=== PATIENT | male | born 1945 | race Caucasian/White ===

== ENCOUNTER 2022-06-28 07:45 | Inpatient (IN) | payer OTHER ==
--- OUTSIDE RECORDS SUMMARY | 2022-06-28 07:48 | XMS REPORT | Continuity of Care Document ---
:1945 Author Organization [facility] t Address [address] [place] [address] [address]. [address] [place] [address] Care Team Providers Name Role Phone JEREMY PRYOR Primary Care Physician Unavailable Fredo Gonzalez Attending Clinician Unavailable MAMI GONZALES Attending Clinician Unavailable MAMI GONZALES Attending Clinician Unavailable SAMANTHA VASQUEZ Attending Clinician Unavailable Doctor Unassigned, [place] Attending Clinician Unavailable Mami Gonzales DO Attending Clinician [facility], [facility] Attending Clinician Unavailable Sandra Willis MD Attending Clinician SANDRA WILLIS Attending Clinician Unavailable SANDRA WILLIS Attending Clinician Unavailable Therapist, [facility] Attending Clinician Unavailable Yan Zheng MD Attending Clinician YAN ZHENG Attending Clinician Unavailable Only, [facility] Test Attending Clinician Unavailable MAMI GONZALES Admitting Clinician Unavailable Payers Payer Name Policy Type Policy Number Effective Date Expiration Date S bob MEDICARE PART A [id number] 2010 \T\ B 00:00:00 KARLO ANDREA PETTY [id number] 2019 00:00:00 Problems Condition Condition Condition Status Onset Resolution Last Treating Co mments Source Name Details Category Date Date Treatment Clinician Date No known No known Disease Metho di active active st problems problems Hospit a l Allergies, Adverse Reactions, Alerts Allergy Allergy Status Severity Reaction(s) Onset Inactive Treating Comm ents Source Name Type Date Date Clinician NO KNOWN Drug Active Univers ALLERGIE Class ity of S [facility] Family History Family Member Diagnosis Comments Start Date Stop Date Source Natural father Hodgkin's lymphoma [facility] Natural mother Breast cancer [facility] Social History Social Habit Start Date Stop Date Quantity Comments Source History of tobacco Current smoker Un iversity of use [facility] Exposure to 2021-12-23 2022-01-02 Not sure [facility]-CoV-2 (event) 00:00:00 09:44:00 [facility] Tobacco use and 2021-07-07 2021-07-07 Former smokeless Uni versity of exposure 00:00:00 00:00:00 tobacco user [facility] Cigarettes smoked 2017-02-22 2017-02-22 [facility] current (pack per 00:00:00 00:00:00 Hospita day) - Reported Cigarette 2017-02-22 2017-02-22 [facility]-years 00:[facility] 00:00:00 Hospital Sex Assigned At [birth year] [facility] 00:00:00 [facility]:00 Hospital Smoking Status Start Date Stop Date Source Ex-smoker 2021-07-07 00:00:00 2021-07-07 00:00:00 [facility] Medications Ordered Filled Start Stop Current Ordering Indication Dosage Frequency Signature Comments Components Source Medication Medication Date Date Medication? Clinician (SIG) Name Name fosinopriL Yes 20mg Take 20 mg U nivers 20 mg 7-26 by mouth ity of tablet 11:08: daily. [address] amLODIPine Yes 10mg Take 10 mg U nivers 10 mg 7-26 by mouth ity of tablet 11:08: daily. [address] metoprolol Yes 50mg Take 50 mg U nivers tartrate 50 7-26 by mouth ity of mg tablet 11:08: daily. [address] pravastatin Yes 80mg Take 80 mg Univers 80 mg 7-26 by mouth ity of tablet 11:08: at [place] [address] bedtime. Medical Branch fosinopriL Yes 20mg Take 20 mg U nivers 20 mg 7-26 by mouth ity of tablet 11:08: daily. [address] amLODIPine Yes 10mg Take 10 mg U nivers 10 mg 7-26 by mouth ity of tablet 11:08: daily. [place] [address] Medical Branch metoprolol 2-0 Yes 50mg Take 50 mg U nivers tartrate 50 7-26 by mouth ity of mg tablet 11:08: daily. [place] [address] Medical Branch pravastatin 2-0 Yes 80mg Take 80 mg Univers 80 mg 7-26 by mouth ity of tablet 11:08: at [place] [address] bedtime. Medical Branch fosinopriL 2022-0 Yes 20mg Take 20 mg U nivers 20 mg 7-26 by mouth ity of tablet 11:08: daily. [place] [address] Medical Branch amLODIPine 2-0 Yes 10mg Take 10 mg U nivers 10 mg 7-26 by mouth ity of tablet 11:08: daily. [place] [address] Medical Branch metoprolol 2-0 Yes 50mg Take 50 mg U nivers tartrate 50 7-26 by mouth ity of mg tablet 11:08: daily. [address] Branch pravastatin 2-0 Yes 80mg Take 80 mg Univers 80 mg 7-26 by mouth ity of tablet 11:08: at [place] [address] bedtime. Medical Branch fosinopriL 2-0 Yes 20mg Take 20 mg U nivers 20 mg 7-26 by mouth ity of tablet 11:08: daily. [place] [address] Medical Branch amLODIPine 2-0 Yes 10mg Take 10 mg U nivers 10 mg 7-26 by mouth ity of tablet 11:08: daily. [place] [address] Medical Branch metoprolol 2-0 Yes 50mg Take 50 mg U nivers tartrate 50 7-26 by mouth ity of mg tablet 11:08: daily. [place] [address] Medical Branch pravastatin 2-0 Yes 80mg Take 80 mg Univers 80 mg 7-26 by mouth ity of tablet 11:08: at [place] [address] bedtime. Medical Branch fosinopriL 2-0 Yes 20mg Take 20 mg U nivers 20 mg 7-26 by mouth ity of tablet 11:08: daily. [place] [address] Medical Branch amLODIPine 2-0 Yes 10mg Take 10 mg U nivers 10 mg 7-26 by mouth ity of tablet 11:08: daily. [place] [address] Medical Branch metoprolol 2-0 Yes 50mg Take 50 mg U nivers tartrate 50 7-26 by mouth ity of mg tablet 11:08: daily. [place] 53 Medical Branch pravastatin 2-0 Yes 80mg Take 80 mg Univers 80 mg 7-26 by mouth ity of tablet 11:08: at [place] [address] bedtime. Medical Branch fosinopriL 2-0 Yes 20mg Take 20 mg U nivers 20 mg 7-26 by mouth ity of tablet 11:08: daily. [place] [address] Medical Branch amLODIPine 2-0 Yes 10mg Take 10 mg U nivers 10 mg 7-26 by mouth ity of tablet 11:08: daily. [place] [address] Medical Branch metoprolol 2-0 Yes 50mg Take 50 mg U nivers tartrate 50 7-26 by mouth ity of mg tablet 11:08: daily. [place] [address] Medical Branch pravastatin 2-0 Yes 80mg Take 80 mg Univers 80 mg 7-26 by mouth ity of tablet 11:08: at [place] [address] bedtime. Medical Branch umeclidiniu 2021-0 Yes 1{puff} Inhale 1 Univers m-vilantero 4-29 Puff ity of L ([facility] 62[facility]25 Branch mcg/actuati on inhalation disk umeclidiniu 2021-0 Yes 1{puff} Inhale 1 Univers m-vilantero 4-29 Puff ity of L (ANORO 00:00: daily. [place] ELLIPTA) 00 Medical 62.5-25 Branch mcg/actuati on inhalation disk umeclidiniu 2-0 Yes 1{puff} Inhale 1 Univers m-vilantero 4-29 Puff ity of L (ANORO 00:00: daily. [place] ELLIPTA) 00 Medical 62.5-25 Branch mcg/actuati on inhalation disk umeclidiniu 2-0 Yes 1{puff} Inhale 1 Univers m-vilantero 4-29 Puff ity of L (ANORO 00:00: daily. [place] ELLIPTA) 00 Medical 62.5-25 Branch mcg/actuati on inhalation disk umeclidiniu 2-0 Yes 1{puff} Inhale 1 Univers m-vilantero 4-29 Puff ity of L (ANORO 00:00: daily. [place] ELLIPTA) 00 Medical 62.5-25 Branch mcg/actuati on inhalation disk umeclidiniu Yes 1{puff} Inhale 1 Univers m-vilantero 4-29 Puff ity of L (ANORO 00:00: daily. [place] ELLIP) 00 Medical 62.5-25 Branch mcg/actuati on inhalation disk ALBUTEROL Yes INHALE 2 Univ ers 90 2-14 PUFFS BY ity of mcg/actuati 00:00: MOUTH [place] on inhaler 00 EVERY 6 Medica l HOURS Branch NEEDED FOR WHEEZING OR SHORTNESS OF BREATH ALBUTEROL Yes INHALE 2 Univ ers 90 2-14 PUFFS BY ity of mcg/actuati 00:00: MOUTH [place] on inhaler 00 EVERY 6 Medica l HOURS Branch NEEDED FOR WHEEZING OR SHORTNESS OF BREATH ALBUTEROL Yes INHALE 2 Univ ers 90 2-14 PUFFS BY ity of mcg/actuati 00:00: MOUTH [place] on inhaler 00 EVERY 6 Medica l HOURS Branch NEEDED FOR WHEEZING OR SHORTNESS OF BREATH ALBUTEROL Yes INHALE 2 Univ ers 90 2-14 PUFFS BY ity of mcg/actuati 00:00: MOUTH [place] on inhaler 00 EVERY 6 Medica l HOURS Branch NEEDED FOR WHEEZING OR SHORTNESS OF BREATH ALBUTEROL Yes INHALE 2 Univ ers 90 2-14 PUFFS BY ity of mcg/actuati 00:00: MOUTH [place] on inhaler 00 EVERY 6 Medica l HOURS Branch NEEDED FOR WHEEZING OR SHORTNESS OF BREATH ALBUTEROL Yes INHALE 2 Univ ers 90 2-14 PUFFS BY ity of mcg/actuati 00:00: MOUTH [place] on inhaler 00 EVERY 6 Medica l HOURS Branch NEEDED FOR WHEEZING OR SHORTNESS OF BREATH amLODIPine Yes 10mg QD Take 10 mg M ethodi (NORVASC) 9-[address] 10 mg 15:23: daily. Hospita tablet 24 l metoprolol Yes 50mg QD Take 50 mg M ethodi succinate 9-[address] XL 15:23: daily. Hospita (TOPROL-XL) 24 l 50 mg 24 hr tablet fosinopril Yes TK 1 T PO Me thodi (MONOPRIL) 8-[address] 20 MG 00:00: Hospita tablet 00 l latanoprost Yes INT 1 GTT M ethodi (XALATAN) 8-[address] 0.005 % 00:00: Hospita ophthalmic 00 l solution pravastatin Yes TK 1 T PO M ethodi (PRAVACHOL) 8-[address] 80 MG 00:00: Hospita tablet 00 l PROAIR HFA Yes INL 2 PFS Me thodi 90 6-[address] mcg/actuati 00:00: Hospit a on inhaler 00 l Immunizations Ordered Filled Immunization Date Status Comments [facility] e Immunization Name Name Influenza Virus 2021-08-26 Completed Universit y of Vaccine,quad 00:00:00 [place] [facility] Im,preserve Free Branch 65+ Influenza Virus 2021-08-26 Completed Universit y of Vaccine,quad 00:00:00 [place] Med[facility] Im,preserve Free Branch 65+ Influenza Virus 2021-08-26 Completed Universit y of Vaccine,quad 00:00:00 [place] Medica l Im,preserve Free Branch 65+ Influenza Virus 2021-08-26 Completed Universit y of Vaccine,quad 00:00:00 [place] Medica l Im,preserve Free Branch 65+ Influenza Virus 2021-08-26 Completed Universit y of Vaccine,quad 00:00:00 [place] Medica l Im,preserve Free Branch 65+ Influenza Virus 2021-08-26 Completed Universit y of Vaccine,quad 00:00:00 [place] Medica l Im,preserve Free Branch 65+ Vital Signs Vital Name Observation Time Observation Value Comments Source Systolic blood 2022-01-03 16:18:00 114 mm[facility]Hg] [facility] Diastolic blood 2022-01-03 16:18:00 71 mm[Hg] [facility] Heart rate 2022-01-03 16:18:00 85 /min [facility] Respiratory rate 2022-01-03 16:18:00 19 /min [facility] Body height 2022-01-03 16:18:00 180.3 cm [facility] Body weight 2022-01-03 16:18:00 129.729 kg [facility] BMI 2022-01-03 16:18:00 39.89 kg/m2 [facility] Oxygen saturation in 2022-01-03 16:18:00 95 /min University Arterial blood by [facility] Pulse oximetry Branch Procedures Procedure Date / Time Performing Clinician Source Performed DME/SUPPLY JUSTIFICATION 2022-03-23 05:01:00 Doctor Unassigned, No [facility] DME/SUPPLY JUSTIFICATION 2022-01-03 05:01:00 Doctor Unassigned, No [facility] DME/SUPPLY JUSTIFICATION 2021-12-21 05:01:00 Doctor Unassigned, No [facility] Plan of Care Planned Activity Planned Date Details Comments Source Future Scheduled 2022-05-27 COVID-19 VACCINE (#1) [facility] Test 05:45:53 [code = COVID-19 VACCINE (#1)] Future Scheduled 2022-05-27 SHINGLES VACCINES (1 [facility] Test 05:45:53 of 2) [code = SHINGLES VACCINES (1 of 2)] Future Scheduled 2022-05-27 65+ [facility] 05:45:53 VACCINE (1 - PCV) [code = 65+ PNEUMOCOCCAL VACCINE (1 - PCV)] Future Scheduled 2022-05-27 INFLUENZA VACCINE [facility] Test 05:45:53 [code = INFLUENZA VACCINE] Encounters Start End Encounter Admission Attending Care Care Encounter Source Date/Time Date/Time Type Type Clinicians Facility Department ID 2022-05-30 Outpatient Gonzalez, [facility] [id number] Common 07:43:01 [facility] 2022-05-02 [facility] [id number] Common 08:50:02 [facility] 2022-01-30 Outpatient Gonzalez, [facility] [id number] Common 14:59:02 [facility] 2021-12-27 [facility] [id number] Common 08:16:03 [facility] 2021-12-26 Outpatient [facility] [id number] Common 15:16:04 [facility] 2022-05-15 2022-05-15 Outpatient R CHRISTINA [facility] [id number] Univers 16:00:00 16:00:00 SAMANTHA ity of [facility] 2022-03-23 2022-03-23 Orders Doctor ABELINO [id number] [id number] Univers 00:00:00 00:00:00 Only Unassigned, MARY [id number] ity of [place] [facility] [id number] Joe as [id number] [address] 2022-01-24 2022-01-24 [facility] [id number] Univers 00:00:00 00:00:00 Shiwan GISSELL [id number] i ty [id number] [id number] [address] 2022-01-03 2022-01-03 Outpatient R MAMI GONZALES [facility] [id number] Univers 11:00:00 11:47:28 MAMI GONZALES i ty of [facility] 2022-01-03 2022-01-03 [facility] [id number] Univers 11:00:00 11:47:28 Visit Mami BORRERO [id number] i ty [id number] [id number] [address] 2022-01-03 2022-01-03 [facility] [id number] Univers 00:00:00 00:00:00 Shisim BORRERO [id number] i ty [id number] [id number] [address] 2022-01-03 2022-01-03 Orders Doctor ABELINO 1.2.840.114 [id number] Univers 00:00:00 00:00:00 Only Unassigned, MARY [id number] ity of [place] [facility] [id number] Joe as [id number] [address] 2021-12-21 2021-12-21 Telephone [facility] [id number] Univers 00:00:00 00:00:00 Shiwan [place] [id number] i ty [id number] [id number] [address] 2021-12-21 2021-12-21 Orders Doctor ABELINO 1.2.840.114 [id number] Univers 00:00:00 00:00:00 Only Unassigned, MARY [id number] ity of [place] [facility] [id number] Joe as [id number] [address] 2021-12-19 2021-12-19 Telephone [facility] [id number] Univers 00:00:00 00:00:00 Shiwan [place] [id number] i ty [id number] [id number] [address] 2021-12-07 2021-12-07 Telephone [facility] [id number] Univers 00:00:00 00:00:00 Shiwan [place] [id number] i ty [id number] [id number] [address] 2021-09-19 2021-09-19 [facility] 1.2.840.114 [id number] Univers 00:00:00 00:00:00 Shiwan [place] [id number] i ty [id number] [id number] [address] 2021-09-14 2021-09-14 Outpatient R MAMI GONZALES [facility] 10 [id number] Univers 13:59:27 23:59:00 MAMI GONZALES i ty of [facility] 2021-09-14 2021-09-14 [facility] 1.2.840.114 [id number] Univers 13:59:27 23:59:00 Encounter Mami BORRERO [id number] ity [place] [id number] [address] 2021-08-26 2021-08-26 Outpatient R MAMI GONZALES [facility] 10 [id number] Univers 14:00:00 14:59:18 MAMI GONZALES i ty of [facility] 2021-08-26 2021-08-26 [facility] 1.2.840.114 [id number] Univers 14:00:00 14:59:18 Visit Mami BORRERO 350.1.13.10 i ty [place] [facility] [id number] [address] 2021-08-26 2021-08-26 Outpatient R MAMI GONZALES [facility] 10 [id number] Univers 14:00:00 14:00:00 MAMI GONZALES i ty of [facility] 2021-08-26 2021-08-26 Outpatient R MAMI GONZALES [facility] 10 [id number] Univers 14:00:00 14:00:00 MAMI GONZALES i ty of [facility] 2021-08-05 2021-08-05 [facility] 1.2.840.114 [id number] Univers 00:00:00 00:00:00 Mami BORRERO 350.1.13.10 i ty [place] [id number] [address] 2021-08-04 2021-08-04 [facility] 1.2.840.114 [id number] Univers 00:00:00 00:00:00 Mami BORRERO [id number] i ty [id number] [id number] [address] 2021-07-27 2021-07-27 Telephone PAOLA Gonzales 1.2.840.114 [id number] Univers 00:00:00 00:00:00 [facility] [id number] i ty of [place] [id number] [place] [address] [place] 2021-07-25 2021-07-25 Refill El[place] [facility] 1.2.840.114 [id number] Univers 00:00:00 00:00:00 Shiwan [place] [id number] i ty [facility] 4.2.7.2.[place] [id number] Pa dical NAL [address] [place] [address] 2021-07-19 2021-07-19 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 10 ity of [facility] 4.2.7.2.[place] [id number] [facility] [address] [place] 2021-07-19 2021-07-19 Outpatient R SANDRA WILLIS [facility] [id number] Univers 10:00:00 10:00:00 SANDRA WILLIS [facility] 2021-07-18 2021-07-18 [facility] [id number] Univers 00:00:00 00:00:00 Mami BORRERO 350.1.13.10 i ty [place] [id number] [address] dic[address] 2021-07-12 2021-07-12 Tape Fastener Machine Operator Therapist, [facility]c Respiratory [facility] 1.2.840.114 [id number] Univers 14:00:00 15:30:00 Visit Yan Zheng 350.1.13. 10 ity of [facility] 4.2.7.2.[place] [id number] [place] [address] [place] 2021-07-12 2021-07-12 Outpatient R MARCE [facility] [id number] Univers 14:00:00 14:00:00 YAN goodman [facility] 2021-07-12 2021-07-12 Orders Doctor ABELINO 1.2.840.114 [id number] Univers 00:00:00 00:00:00 Only Unassigned, MARY 350.1.13.10 ity of [place] [facility] 4.2.7.2.686 Joe as [id number] [facility] 009 Branch 2021-07-07 2021-07-07 Hospital [facility] 1.2.840.114 [id number] Univers 10:20:07 23:59:00 Encounter Mami BORRERO 350.1.13.10 [place] [id number] [facility] 807 Branch 2021-07-07 2021-07-07 Laboratory Only, Adc Test [facility] 1.2.840. 114 [id number] Univers 10:15:00 10:30:00 Only Mami Gonzales 350.1.13.10 [place] [phone] [facility] 353 Branch 2021-07-07 2021-07-07 Outpatient R MAMI GONZALES [facility] [id number] Univers 10:15:00 10:15:00 MAMI GONZALES i ty of [facility] 2021-07-07 2021-07-07 Office Elida [facility] 1.2.840.114 [id number] Univers 08:30:00 09:30:08 Visit Mami BORRERO 350.1.13.10 i ty [place] [id number] Pa dical [facility] 085 Branch [facility] 2021-07-07 2021-07-07 Outpatient R MAMI GONZALES [facility] [id number] Univers 08:30:00 09:30:08 MAMI GONZALES i ty of [facility] 2021-07-07 2021-07-07 Orders Doctor ROCA 1.2.840.114 [id number] Univers 00:00:00 00:00:00 Only Unassigned, MARY 350.1.13.10 ity of [place] [facility] 4.2.7.2.686 Joe as [phone] [facility] 009 Branch Results This patient has no known results.
[2022-06-28 08:23] LABS: Absolute Lymphocytes (CBC) 0.6 K/uL (0.7-4.9); Hematocrit 33.8 % (39.6-49.0); Lymphocytes % 2.2 % (15.3-44.8); MCV 73.6 fL (80-100); MPV 8.1 fL (7.6-11.3)
[2022-06-28 08:37] LABS: Potassium 4.3 mmol/L (3.5-5.1)
[2022-06-28 08:39] LABS: Troponin High Sensitivity 56.9 pg/mL (<58.9)
[2022-06-28] MEDS ORDERED: CEFTRIAXONE 1000 MG/VIAL ONE (08:40)
[2022-06-28] MEDS ORDERED: NA CHLORIDE 0.9% 50 ML IV ONE (08:40)
--- NOTE | 2022-06-28 09:22 | RAD REPORT ---
EXAM DESCRIPTION: CT - Thorax Wo Con CLINICAL HISTORY: Chest pain Atrial fibrillation and shortness of breath COMPARISON: Chest Single View dated 06/28/2022 FINDINGS: Lobulated soft tissue mass is seen measuring 4.3 x 3.1 cm in the left lung base anteriorly . This abuts both the pleura and pericardium. Additional 2 small nodules are present in the left base medially measuring 10 mm in the left posterior gutter and 13 mm in the medial left base abutting the posterior mediastinal pleural surface. Findings are quite suspicious for lung malignancy. Position o f this mass adjacent to rib in very close to the heart would make percutaneous biopsy technically deric llenging. Diffuse COPD is present. Tiny nodule is seen in the anterior right upper lobe measuring 5 mm. Thyroid gland is mildly prominent. Mildly prominent lymph nodes in the mediastinum noted. Several vag ue low-density lesions are present in the liver. No destructive bone lesion. All CT scans are performed using dose optimization technique as appropriate and may include automated exposure control or mA/KV adjustment according to patient size. IMPRESSION: Lobulated large pulmonary mass in the left base anteriorly highly suspicious for maligna ncy. Smaller satellite nodules are present in the left base as detailed. Nonspecific low-density lesions in the liver could represent cysts, although early metastatic lesions cannot be ruled out on noncontrast study. Recommend follow-up nonemergent MRI liver protocol with co ntrast.
--- NOTE | 2022-06-28 09:32 | RAD REPORT ---
EXAM DESCRIPTION: RAD - Chest Single View - 06/28/2022 8:51 am CLINICAL HISTORY: falll from standing Chest pain. COMPARISON: Abdomen 1 View (KUB) dated 05/08/2016; ABDOMEN 1 VIEW KUB dated 03/29/2015; ABDOMEN 1 EW KUB dated 03/11/2014; CHEST PA AND LAT 2 VIEW dated 01/07/2014 FINDINGS: Portable technique limits examination quality. 3-4 cm pleural based mass is seen in the left lower lobe laterally. The lungs are clear acute infiltr ate but are mildly emphysematous. Heart is mildly prominent. CT follow-up recommended.
[2022-06-28 09:52] LABS: Anisocytosis 1+; Blood Morphology Comment NOTED (NOT SEEN); Hypochromasia 1+; Platelet Estimate INCR; Platelets, Giant PRESENT; Poikilocytosis SLIGHT; Target Cells FEW; Teardrop Cell FEW
--- NOTE | 2022-06-28 09:59 | ER ---
Nurse's Notes [facility] Name: Ren Owusu Age: 77 yrs Sex: Male : 1945 Arrival Date: 06/28/2022 Time: 07:50 Bed 8 Private MD: Diagnosis: Unspecified atrial fibrillation;Weakness;COPD/ Chronic obstructive pulmonary disease with (acute) exacerbation;Fall on same level, unspecified-from standing Presentation: 06/28 07:51 Chief complaint: EMS states: Became disoriented and fell in his closet, denies LOC or ph injury r/t fall, was there for approx an hour and a half, when EMS arrived he was weak, pale and diaphoretic, found to be in a-fib/RVR w/ rate 140s-180s, initial BP 112 systolic, has hx of a-fib, 18G IV to LAC, 25 mg Cardizem given, BP dropped to 80s systolic, improved after 600 mL NS bolus, pt awake and alert upon arrival to ED, hx of COPD, was 89% RA, placed on 2L NC. Coronavirus screen: Vaccine status: Patient reports receiving the 2nd dose of the covid vaccine. Ebola Screen: No symptoms or risks identified at this time. Initial Sepsis Screen: Does the patient meet any 2 criteria? No. Patient's initial sepsis screen is negative. Does the patient have a suspected source of infection? No. Patient's initial sepsis screen is negative. Risk Assessment: Do you want to hurt yourself or someone else? Patient reports no desire to harm self or others. 07:51 Method Of Arrival: EMS: [facility] 07:51 Acuity: MICHAEL 2 ph 07:56 Onset of symptoms was June 28, 2022. Triage Assessment: 07:57 General: Appears in no apparent distress. Behavior is calm, cooperative. Pain: Complains of pain in back. Neuro: Level of Consciousness is awake, alert, obeys commands, Oriented to person, place, time, situation. Cardiovascular: Reports diaphoresis, fatigue, lightheadedness, Denies chest pain, palpitations, shortness of breath, Rhythm is atrial fibrillation with rapid ventricular response. Respiratory: Airway is patent Respiratory effort is even, unlabored. GI: No signs and/or symptoms were reported involving the gastrointestinal system. Derm: Skin is pink, warm \T\ dry. Musculoskeletal: Circulation, motion, and sensation intact. Range of motion: intact in all extremities. Historical: - Allergies: 07:56 No Known Allergies; ph - Home Meds: 08:59 metformin 500 mg Oral tr24 1 tab once daily [Active]; albuterol sulfate 90 iw mcg/actuation Inhl aepb 1 puff every 6 hours [Active]; Eliquis 5 mg oral tab 1 tab 2 times per day [Active]; hydrocodone-acetaminophen 5-500 mg Oral cap 1 cap every 4 hours [Active]; gabapentin 300 mg oral Tb24 1 tab once daily [Active]; amlodipine 10 mg tab 1 tab once daily [Active]; metoprolol tartrate 50 mg Oral tab 1 tab 2 times per day [Active]; finasteride 5 mg oral tab 1 tab once daily [Active]; pravastatin 80 mg oral tab 1 tab once daily [Active]; Anoro Ellipta 62.5-25 mcg/actuation inhalation dsdv 1 puff once daily [Active]; - PMHx: 07:56 Hypertensive disorder; Hypercholesterolemia; Atrial fibrillation; ph - Immunization history:: Adult Immunizations unknown. - Social history:: Smoking status: Patient denies any tobacco usage or history of. Screenin:57 [facility] ED Fall Risk Assessment (Adult) History of falling in the last 3 months, ph including since admission Yes- physiologic fall (2 pts) Confusion or Disorientation No (0 pts) Intoxicated or Sedated No (0 pts) Impaired Gait Yes (1 pt) Mobility Assist Device Used No (0 pt) Altered Elimination No (0 pt) Score/Fall Risk Level 3 or more points = High Risk Oriented to surroundings, Maintained a safe environment, Hourly rounding (assess needs \T\ fall precautionary measures) done, Offered frequent toileting (1:1 observation), Remained with patient while ambulating. Abuse screen: Denies threats or abuse. Denies injuries from another. Nutritional screening: No deficits noted. Tuberculosis screening: No symptoms or risk factors identified. Assessment: 07:59 General: SEE TRIAGE ASSESSMENT. ph 08:51 Reassessment: Patient appears in no apparent distress at this time. Patient and/or ph family updated on plan of care and expected duration. Pain level reassessed. Patient is alert, oriented x 3, equal unlabored respirations, skin warm/dry/pink. Pt taken to CT via stretcher. 10:33 Reassessment: Patient appears in no apparent distress at this time. Patient and/or ph family updated on plan of care and expected duration. Pain level reassessed. Patient is alert, oriented x 3, equal unlabored respirations, skin warm/dry/pink. 11:02 Reassessment: Patient appears in no apparent distress at this time. Patient and/or ph family updated on plan of care and expected duration. Pain level reassessed. Patient is alert, oriented x 3, equal unlabored respirations, skin warm/dry/pink. Hospitalist at bedside. 13:53 Reassessment: Tech at bedside for echocardiogram at bedside. ph 14:12 Reassessment: Order placed for amiodarone drip, pt unable to go to med-surg until after ph medication is titrated per protocol, charge nurse notified. 14:14 Reassessment: Pt taken for VQ scan. ph 19:31 General: Appears in no apparent distress. comfortable, well groomed, well developed, kl Behavior is calm, cooperative. Pain: Denies pain. Neuro: No deficits noted. Respiratory: No deficits noted. GI: No deficits noted. No signs and/or symptoms were reported involving the gastrointestinal system. : No deficits noted. No signs and/or symptoms were reported regarding the genitourinary system. EENT: No deficits noted. No signs and/or symptoms were reported regarding the EENT system. Derm: No deficits noted. No signs and/or symptoms reported regarding the dermatologic system. 19:32 Reassessment: Patient and/or family updated on plan of care and expected duration. Pain kl level reassessed. 20:41 Cardiovascular: Rhythm is atrial fibrillation. Vital Signs: 07:51 BP 93 / 61; Pulse 133; Resp 25; Temp 98.3; Pulse Ox 96% on 2 lpm NC; Weight 124.74 kg; ph Height 5 ft. 10 in. (177.80 cm); 08:32 BP 90 / 64; Pulse 110; Resp 22; Pulse Ox 96% on 2 lpm NC; ph 08:47 BP 93 / 51; Pulse 122; Resp 19; Pulse Ox 98% ; jl7 09:22 BP 99 / 57; Pulse 99; Resp 20; Pulse Ox 97% on 2 lpm NC; ph 10:22 BP 92 / 66; Pulse 108; Resp 15; Pulse Ox 97% ; jl7 11:02 BP 102 / 63; Pulse 102; Resp 22; Pulse Ox 96% on 2 lpm NC; ph 12:00 BP 95 / 56; Pulse 93; Resp 20; Temp 97.9; Pulse Ox 97% on 2 lpm NC; ph 13:26 BP 92 / 62; Pulse 85; Resp 18; Pulse Ox 97% on 2 lpm NC; ph 20:49 BP 126 / 77; Pulse 105; Resp 20; Pulse Ox 97% on R/A; kl 07:51 Body Mass Index 39.46 (124.74 kg, 177.80 cm) ph ED Course: 07:50 Patient arrived in ED. iw 07:51 Joann Tenorio, RN is Primary Nurse. ph 07:56 Triage completed. ph 07:58 Arm band placed on Patient placed in an exam room, on a stretcher, on oxygen, on ph hospital monitor, on pulse oximetry. EKG completed in triage. Results shown to MD. 07:59 Patient has correct armband on for positive identification. Placed in gown. Bed in low ph position. Call light in reach. Side rails up X2. Client placed on continuous cardiac and pulse oximetry monitoring. NIBP monitoring applied. Door closed. Noise minimized. Warm blanket given. 07:59 Maintain EMS IV. Dressing intact. Good blood return noted. Site clean \T\ dry. Gauge \T\ ph site: 18G RAC. 08:01 Bebeto Nolasco MD is Attending Physician. kdr 08:01 EKG done, by ED staff, reviewed by Bebeto Nolasco MD. jl7 08:31 Notified ED physician of a critical lab result(s). d-dimer 1,377 and WBC 26.8. ph 08:52 XRAY Chest (1 view) In Process Unspecified. EDMS 08:58 Thorax Wo Con In Process Unspecified. EDMS 09:58 Brayden Erickson MD is Hospitalizing Provider. kdr 10:22 COVID swab sent to lab. jl7 10:25 Chris Miller MD is Hospitalizing Provider. kdr 11:02 No provider procedures requiring assistance completed. Patient admitted, IV remains in ph place. Administered Medications: 08:11 Drug: NS 0.9% 250 ml Route: IV; Rate: bolus; Site: right antecubital; ph 09:00 Follow up: Response: No adverse reaction; IV Status: Completed infusion; IV Intake: jl7 250ml 08:50 Drug: Rocephin - (cefTRIAXone) 1 grams Route: IVPB; Infused Over: 30 mins; Site: right antecubital; 09:20 Follow up: Response: No adverse reaction; IV Status: Completed infusion; IV Intake: [id number] 13:51 Drug: amiodarone 150 mg Volume: 100 ml; Route: IVPB; Infused Over: 10 mins; Site: right antecubital; 14:01 Follow up: Response: No adverse reaction; IV Status: Completed infusion; IV Intake: ph 100ml 15:05 Drug: amiodarone 900 mg, D5W 500 ml Route: IVPB; Rate: 1 mg/min; Site: right antecubital; 16:55 Follow up: IV Status: Infusion continued upon admission ss Medication: 07:59 VIS not applicable for this client. ph Intake: 09:00 IV: 250ml; Total: 250ml. jl7 09:20 IV: 50ml; Total: 300ml. jl7 14:01 IV: 100ml; Total: 400ml. ph Outcome: 09:59 Decision to Hospitalize by Provider. kdr 16:00 Admitted to ER Hold. Please see [facility] for further documentation. ss 16:00 Condition: stable 16:00 Instructed on the need for admit, Demonstrated understanding of instructions. 22:36 Admitted to Med/surg accompanied by tech, room 409, with chart, Report called to christy sullivan 22:36 Condition: improved 22:37 Patient left the ED. nate Signatures: Dispatcher [employer] EDNH Samantha Rogers RN RN kl Rittger, Kevin, MD MD kdr Williams, Irene, RN RN Jazmin Ron RN RN Joann Tenorio RN RN Elif Mueller RN RN jl7 Corrections: (The following items were deleted from the chart) 20:41 19:31 Cardiovascular: Capillary refill < 3 seconds Rhythm is sinus rhythm nate sullivan
--- NOTE | 2022-06-28 09:59 | EDPHYS ---
Physician Documentation [facility] Name: Ren Owusu Age: 77 yrs Sex: Male : 1945 Arrival Date: 06/28/2022 Time: 07:50 Bed 8 Private MD: ED Physician Bebeto Nolasco HPI: 06/28 08:09 This 77 yrs old Male presents to ER via EMS with complaints of A Fib - fall. kdr 08:09 Patient states that he was up earlier this morning and in his closet when he fell to kdr the ground and was unable to get up for some time. His was home but she was not aware initially that he had fallen. He had to call her into the closet. She was unable to get him off the floor so EMS was called. Patient denies any new injuries. He has a history of chronic back pain and he states that this is no different or worse at this time. He denies chest pain or shortness of breath. He is otherwise alert and oriented and nontoxic appearing. His vital signs are unstable and that he has a heart rate in the 120s to 130s. His blood pressure initially started at in the 90s but is slowly drifted down slightly. Currently 89/53 with a MAP of 64. The patient is currently alert and oriented and asymptomatic with regard to his blood pressure and pulse. Onset: The symptoms/episode began/occurred suddenly, just prior to arrival. Severity of symptoms: At their worst the symptoms were moderate in the emergency department the symptoms are unchanged. The patient has not experienced similar symptoms in the past. The patient has not recently seen a physician. Patient states he has a history of A. fib. EMS after their initial assessment, administered 25 mg of Cardizem. It is unknown what the before and after vital signs were at this time.. Historical: - Allergies: 07:56 No Known Allergies; ph - Home Meds: 08:59 metformin 500 mg Oral tr24 1 tab once daily [Active]; albuterol sulfate 90 iw mcg/actuation Inhl aepb 1 puff every 6 hours [Active]; Eliquis 5 mg oral tab 1 tab 2 times per day [Active]; hydrocodone-acetaminophen 5-500 mg Oral cap 1 cap every 4 hours [Active]; gabapentin 300 mg oral Tb24 1 tab once daily [Active]; amlodipine 10 mg tab 1 tab once daily [Active]; metoprolol tartrate 50 mg Oral tab 1 tab 2 times per day [Active]; finasteride 5 mg oral tab 1 tab once daily [Active]; pravastatin 80 mg oral tab 1 tab once daily [Active]; Anoro Ellipta 62.5-25 mcg/actuation inhalation dsdv 1 puff once daily [Active]; - PMHx: 07:56 Hypertensive disorder; Hypercholesterolemia; Atrial fibrillation; ph - Immunization history:: Adult Immunizations unknown. - Social history:: Smoking status: Patient denies any tobacco usage or history of. ROS: 08:09 Constitutional: Negative for fever, chills, and weight loss, Eyes: Negative for injury, kdr pain, redness, and discharge, ENT: Negative for injury, pain, and discharge, Neck: Negative for injury, pain, and swelling, Cardiovascular: Negative for chest pain, palpitations, and edema, Respiratory: Negative for shortness of breath, cough, wheezing, and pleuritic chest pain, Abdomen/GI: Negative for abdominal pain, nausea, vomiting, diarrhea, and constipation, : Negative for injury, bleeding, discharge, and swelling, MS/Extremity: Negative for injury and deformity, Skin: Negative for injury, rash, and discoloration, Neuro: Negative for headache, weakness, numbness, tingling, and seizure activity. Psych: Negative for depression, anxiety, suicide ideation, homicidal ideation, and hallucinations, Allergy/Immunology: Negative for hives, rash, and allergies, Endocrine: Negative for neck swelling, polydipsia, polyuria, polyphagia, and marked weight changes, Hematologic/Lymphatic: Negative for swollen nodes, abnormal bleeding, and unusual bruising. 08:09 Back: Positive for pain at rest, flank pain, Patient states he has chronic pain and that there is no change in that pain today since his fall. Exam: 08:09 Constitutional: This is a well developed, well nourished patient who is awake, alert, kdr and in no acute distress. Head/Face: Normocephalic, atraumatic. Eyes: Pupils equal round and reactive to light, extra-ocular motions intact. Lids and lashes normal. Conjunctiva and sclera are non-icteric and not injected. Cornea within normal limits. Periorbital areas with no swelling, redness, or edema. Neck: Trachea midline, no thyromegaly or masses palpated, and no cervical lymphadenopathy. Supple, full range of motion without nuchal rigidity, or vertebral point tenderness. No Meningismus. Chest/axilla: Normal chest wall appearance and motion. Nontender with no deformity. No lesions are appreciated. Respiratory: Lungs have equal breath sounds bilaterally, clear to auscultation and percussion. No rales, rhonchi or wheezes noted. No increased work of breathing, no retractions or nasal flaring. Abdomen/GI: Soft, non-tender, with normal bowel sounds. No distension or tympany. No guarding or rebound. No evidence of tenderness throughout. Back: No spinal tenderness. No costovertebral tenderness. Full range of motion. Skin: Warm, dry with normal turgor. Normal color with no rashes, no lesions, and no evidence of cellulitis. MS/ Extremity: Pulses equal, no cyanosis. Neurovascular intact. Full, normal range of motion. Neuro: Awake and alert, GCS 15, oriented to person, place, time, and situation. Cranial nerves II-XII grossly intact. Motor strength 5/5 in all extremities. Sensory grossly intact. Cerebellar exam normal. Normal gait. Psych: Awake, alert, with orientation to person, place and time. Behavior, mood, and affect are within normal limits. 08:09 Cardiovascular: Rate: tachycardic, Rhythm: irregularly irregular, Pulses: no pulse deficits are appreciated, Heart sounds: normal, Edema: is not appreciated. 08:09 ECG was reviewed by the Attending Physician. Vital Signs: 07:51 BP 93 / 61; Pulse 133; Resp 25; Temp 98.3; Pulse Ox 96% on 2 lpm NC; Weight 124.74 kg; ph Height 5 ft. 10 in. (177.80 cm); 08:32 BP 90 / 64; Pulse 110; Resp 22; Pulse Ox 96% on 2 lpm NC; ph 08:47 BP 93 / 51; Pulse 122; Resp 19; Pulse Ox 98% ; jl7 09:22 BP 99 / 57; Pulse 99; Resp 20; Pulse Ox 97% on 2 lpm NC; ph 10:22 BP 92 / 66; Pulse 108; Resp 15; Pulse Ox 97% ; jl7 11:02 BP 102 / 63; Pulse 102; Resp 22; Pulse Ox 96% on 2 lpm NC; ph 12:00 BP 95 / 56; Pulse 93; Resp 20; Temp 97.9; Pulse Ox 97% on 2 lpm NC; ph 13:26 BP 92 / 62; Pulse 85; Resp 18; Pulse Ox 97% on 2 lpm NC; ph 20:49 BP 126 / 77; Pulse 105; Resp 20; Pulse Ox 97% on R/A; kl 07:51 Body Mass Index 39.46 (124.74 kg, 177.80 cm) ph MDM: 09:59 Patient medically screened. kdr 09:59 Data reviewed: vital signs, nurses notes, lab test result(s), EKG, radiologic studies. kdr Consideration of Admission/Observation Patient was admitted/placed on observation. Management of patient was discussed with the following: Hospitalist: [place]. I considered the following discharge prescriptions or medication management in the emergency department Medications were administered in the Emergency Department. See MAR. External Records Reviewed: Inpatient record: From prior visits. 06/28 08:01 Order name: Basic Metabolic Panel; Complete Time: 09:52 [facility] 06/28 08:01 Order name: CBC with Diff; Complete Time: 18:36 kdr 06/28 08:01 Order name: D-Dimer; Complete Time: 09:52 [facility] 06/28 08:01 Order name: NT PRO-BNP; Complete Time: 09:52 [facility] 06/28 08:01 Order name: Troponin HS; Complete Time: 09:52 [facility] 06/28 08:32 Order name: Manual Differential; Complete Time: 18:36 EDMS 06/28 10:02 Order name: Blood Culture Adult (2) 06/28 10:02 Order name: Lactate w/ 2H reflex if indic.; Complete Time: 18:36 iw 06/28 10:16 Order name: SARS RAPID; Complete Time: 18:36 jl7 06/28 13:24 Order name: Hemoglobin A1c; Complete Time: 18:36 EDMS 06/28 13:30 Order name: Phosphorus; Complete Time: 18:36 EDMS 06/28 13:30 Order name: T4 Free; Complete Time: 18:36 EDMS 06/28 13:30 Order name: Magnesium; Complete Time: 18:36 EDMS 06/28 13:30 Order name: Thyroid Stimulating Hormone; Complete Time: 18:36 EDMS 06/28 08:01 Order name: XRAY Chest (1 view); Complete Time: 09:52 kdr 06/28 08:01 Order name: EKG; Complete Time: 08:02 kdr 06/28 08:49 Order name: Thorax Wo Con; Complete Time: 09:52 EDMS 06/28 11:27 Order name: Diet Heart Healthy; Complete Time: 11:27 ph 06/28 11:50 Order name: CONS Physician Consult EDMS 06/28 13:32 Order name: Lipid Profile; Complete Time: 18:36 EDMS 06/28 14:10 Order name: Creatine Phosphokinase; Complete Time: 18:36 EDMS 06/28 15:05 Order name: NM; Complete Time: 18:36 EDMS 06/28 17:35 Order name: Troponin High Sensitivity; Complete Time: 18:36 EDMS 06/28 18:12 Order name: Urine Dipstick-Ancillary; Complete Time: 18:36 EDMS 06/28 21:59 Order name: Troponin High Sensitivity EDMS 06/28 08:01 Order name: Cardiac monitoring; Complete Time: 08:02 [facility] 06/28 08:01 Order name: EKG - Nurse/Tech; Complete Time: 08:02 kdr 06/28 08:01 Order name: IV Saline Lock; Complete Time: 08:02 kdr 06/28 08:01 Order name: Labs collected and sent; Complete Time: 08:02 kdr 06/28 08:01 Order name: O2 Per Protocol; Complete Time: 08:02 [facility] 06/28 08:01 Order name: O2 Sat Monitoring; Complete Time: 08:02 kdr EC:09 Rate is 119 beats/min. Rhythm is irregularly irregular, A fib with No ectopy, Right kdr bundle branch block. Left axis deviation noted. WV interval is normal. QRS interval is normal. QT interval is normal. No Q waves. Clinical impression: Atrial Fibrillation. Administered Medications: 08:11 Drug: NS 0.9% 250 ml Route: IV; Rate: bolus; Site: right antecubital; ph 09:00 Follow up: Response: No adverse reaction; IV Status: Completed infusion; IV Intake: jl7 250ml 08:50 Drug: Rocephin - (cefTRIAXone) 1 grams Route: IVPB; Infused Over: 30 mins; Site: right ph antecubital; 09:20 Follow up: Response: No adverse reaction; IV Status: Completed infusion; IV Intake: [id number] 13:51 Drug: amiodarone 150 mg Volume: 100 ml; Route: IVPB; Infused Over: 10 mins; Site: right ph antecubital; 14:01 Follow up: Response: No adverse reaction; IV Status: Completed infusion; IV Intake: ph 100ml 15:05 Drug: amiodarone 900 mg, D5W 500 ml Route: IVPB; Rate: 1 mg/min; Site: right ph antecubital; 16:55 Follow up: IV Status: Infusion continued upon admission ss Disposition Summary: 06/28/22 09:59 Hospitalization Ordered Hospitalization Status: Inpatient Admission kdr Condition: Fair kdr Problem: an acute exacerbation kdr Symptoms: have improved kdr Bed/Room Type: Standard kdr Provider: Chris Miller(06/28/22 10:25) kdr Location: Telemetry/MedSurg (Inpatient)(06/28/22 22:17) eb1 Room Assignment: [facility](06/28/22 22:17) eb1 Diagnosis - Unspecified atrial fibrillation kdr - Weakness kdr - COPD/ Chronic obstructive pulmonary disease with (acute) exacerbation kdr - Fall on same level, unspecified - from standing kdr Forms: - Medication Reconciliation Form kdr - SBAR form kdr Signatures: Dispatcher [employer] EDMS Flori Chaudhary bd Bebeto Nolasco MD MD kdr Leona Krueger RN PEEWEE Vinny, Julio César em1 Alexys Dang, [employer] Joann Tenorio RN RN ph Aguilar, Jose RN PEEWEE [email or web address] Tabatha Moreno RN RN eb1 Jazmin Ron RN Elif Mueller RN jl7 Corrections: (The following items were deleted from the chart) 08:49 08:36 Chest For PE Angio+CT.RAD.BRZ ordered. EDMS EDMS 10:25 09:59 Brayden Erickson kdr kdr 12:59 09:59 kdr ja1 13:15 12:59 426 ja1 bd 14:49 09:59 Telemetry/MedSurg (Inpatient) kdr em1 14:49 13:15 409 bd em1 22:17 14:49 [facility] ER HOLD em1 eb1 22:17 14:49 ERHOLD- em1 eb1
[2022-06-28 10:44] LABS: SARS-CoV-2 Antigen Rapid Res Negative (Negative)
[2022-06-28] MEDS ORDERED: ACETAMINOPHEN 325 MG TABLET PO PRN (11:49)
[2022-06-28] MEDS ORDERED: HYDROMORPHONE HCL 0.5 MG/0.5 ML INJ IV PRN (11:49)
[2022-06-28] MEDS ORDERED: ONDANSETRON 4 MG/2 ML VIAL IV PRN (11:58)
--- NOTE | 2022-06-28 12:52 | P.HP ---
Certification for Inpatient Patient admitted to: Inpatient With expected LOS: >2 Midnights Patient will require the following post-hospital care: None Practitioner: I am a practitioner with admitting privileges, knowledge of patient current condition, hospital course, and medical plan of care. Services: Services provided to patient in accordance with Admission requirements found in Title 42 Section 412.3 of the Code of Federal Regulations <Lanny Ruiz Tali - Last Filed: 06/28/22 15:59> Patient History Date of Service: 06/28/22 Reason for admission: Elevated heart rate History of Present Illness: Patient is a 77-year-old male with a past medical history significant for hypertension, hyperlipidemia, atrial fibrillation, chronic back pain COPD, BPH, peripheral neuropathy who presents with complaint of elevated heart rate and fall. Patient reported that he went to use the bathroom yesterday in the night and was temporarily confused. Patient's spouse reported that patient went into the closet where he fell. Spouse reported that patient expresses temporary confusion whenever he takes his [place]. Patient denies hitting his head or losing consciousness when he fell. Spouse reported that she could not get patient up and had to call EMS. During EMS assessment, patient was found to have an elevated heart rate. Patient is a poor historian and unable to provide accurate history. Patient reported associated signs and symptoms of shortness of breath with exertion and bilateral lower extremity edema. Patient denies any other signs or symptoms. Symptoms are aggravated or relieved by nothing. Patient was brought to the hospital for medical evaluation. - Past Medical/Surgical History -: COPD -: HTN -: HLD -: AFib -: Chronic Back pain Past Surgical History: Reviewed- Non-Contributory - Family History Family History: Reviewed- Non-Contributory - Social History Smoking Status: Former smoker Alcohol use: Yes CD- Drugs: No Caffeine use: Yes Place of Residence: Home <Lanny Ruiz - Last Filed: 06/28/22 15:59> Date of Service: 06/28/22 <Chris Miller - Last Filed: 06/28/22 22:22> Allergies No Known Allergies Allergy (Unverified 06/28/22 11:50) Review of Systems General: Weakness Eyes: Unremarkable ENT: Unremarkable Respiratory: SOB with Excertion Cardiovascular: Other (BLE edema) Gastrointestinal: Unremarkable Genitourinary: Unremarkable Musculoskeletal: Back Pain Integumentary: Unremarkable Neurological: Weakness Lymphatics: Unremarkable <Lanny Ruiz - Last Filed: 06/28/22 15:59> Physical Examination - Physical Exam General: Alert, In no apparent distress, Oriented x3, Cooperative HEENT: Atraumatic, PERRLA, Mucous membr. moist/pink, EOMI, Sclerae nonicteric Neck: Supple, 2+ carotid pulse no bruit, No LAD, Without JVD or thyroid abnormality Respiratory: Diminished Cardiovascular: No murmurs, Edema, Irregular heart rate/rhythm Capillary refill: <2 Seconds Gastrointestinal: Normal bowel sounds, Non-distended, No tenderness Musculoskeletal: No clubbing, No contractures, No erythema, Swelling Integumentary: No rashes, No breakdown, No significant lesion Neurological: Normal speech, Normal tone, Normal affect Lymphatics: No axilla or inguinal lymphadenopathy - Studies Laboratory Data (last 24 hrs) 06/28/22 08:05: WBC 26.80 H*, Hgb 10.6 L, Hct 33.8 L, Plt Count 515 H 06/28/22 08:05: Sodium 138, Potassium 4.3, BUN 35 H, Creatinine 2.11 H, Glucose 140 H <HadleyjuanaLanny peñaloza Tali - Last Filed: 06/28/22 15:59> - Studies Laboratory Data (last 24 hrs) 06/28/22 08:05: WBC 26.80 H*, Hgb 10.6 L, Hct 33.8 L, Plt Count 515 H 06/28/22 08:05: Sodium 138, Potassium 4.3, BUN 35 H, Creatinine 2.11 H, Glucose 140 H <Chris Miller - Last Filed: 06/28/22 22:22> Assessment and Plan - Plan --Atrial fibrillation with RVR. Cardiology consulted. Patient started on heparin drip and amiodarone drip. Telemetry to monitor for any malignant arrhythmia. Echocardiogram pending to assess cardiac structures and function. We will await further recommendation from extruder operator multiple. --Lung mass. Noted on CT scan. Pulmonology consulted. We will await further recommendation from abrasive worker. --Acute on chronic COPD exacerbation. Patient started on steroids, neb treatment with Atrovent\albuterol. Continue O2 therapy. --Chronic back pain. We will manage pain with current medication regimen. --Peripheral neuropathy. Continue home medication. --Sepsis POA. Blood cultures pending. Patient placed on antibiotics. -- Leukocytosis. Blood cultures pending. Continue antibiotics. --Class II obesity. Likely secondary to sedentary trend lifestyle and excess calories intake. Patient counseled on weight reduction, diet and exercise therapy. --HILDA on CKD 3. Patient has baseline CKD 3 status. Nephrology consulted. Will await further recommendations from telecom field technician. --Elevated BNP-- 8038. Slitting And Shipping Supervisor and telecom field technician on board. Echocardiogram pending to assess cardiac structures and functions. Daily weight. Will await await further recommendation from consultants. -- Hypertension. Patient currently hypotensive. We will hold off on BP meds. Continue supportive care --Elevated D-dimer. VQ scan indicates low probability for PE. Continue heparin drip. -- DVT prophylaxis with heparin drip. Discharge Plan: Home Plan to discharge in: Greater than 2 days - Advance Directives Does patient have a Living Will: Yes Does patient have a Durable POA for Healthcare: No - Code Status/Comfort Care Code Status Assessed: Yes Physician Review: Patient Assessed, Agree with Above Assessment and Plan Critical Care: No <Lanny Ruiz - Last Filed: 06/28/22 15:59> Physician Review: Patient Assessed, Agree with Above Assessment and Plan <Chris Miller - Last Filed: 06/28/22 22:22>
[2022-06-28] MEDS ORDERED: HEPARIN/D5W 25,000 UNIT/500 ML BAG IV SCH (13:00)
[2022-06-28] MEDS: ASPIRIN 81 MG CHEWABLE TABLET PO SCH (13:00)
[2022-06-28 13:30] LABS: Magnesium 2.2 mg/dL (1.6-2.4); Phosphorus 2.7 mg/dL (2.5-4.9); Thyroid Stimulating Hormone 0.485 uIU/mL (0.358-3.740)
[2022-06-28] MEDS ORDERED: D5W 100 ML IV ONE (13:49)
[2022-06-28] MEDS ORDERED: AMIODARONE HCL 150 MG/3 ML INJ IV ONE (13:49)
[2022-06-28] MEDS: IPRATROPIUM BROM 0.5MG/2.5ML NEB SCH ×2 (14:00→14:33)
[2022-06-28] MEDS ORDERED: AMIODARONE HCL 900 MG in Dextrose 5%-Water 482 ML IV SCH (14:00)
[2022-06-28] MEDS: ALBUTEROL 2.5 MG/3 ML NEB SOL NEB SCH ×2 (14:00→14:33)
--- NOTE | 2022-06-28 15:04 | RAD REPORT ---
EXAM DESCRIPTION: NM - Vent Perfusion VQ Scan - 06/28/2022 2:53 pm CLINICAL HISTORY: Shortness of breath/elevated D-dimer COMPARISON: June 28, 2022 CT chest TECHNIQUE: 18.0 Mci [id number] was administered by inhalation. First breath, equilibrium, and washout images of the lungs obtained 6.9 millicuries Technetium-99 MAA was administered intravenously. Anterior, posterior, lateral and ob lique views of the lungs were taken. FINDINGS: The patient could not follow breathing instructions so the ventilation images are nondiagn ostic Perfusion sequences demonstrate normal radiotracer activity within the right lung. There is also norm al radiotracer uptake within the left lung on all of the images except the posterior view. Most of the diminished radiotracer uptake is probably due to a combination of attenuation from the he art and left basilar lung mass IMPRESSION: Examination is somewhat limited as ventilation images could not be obtained. Patient probably has a low probability for a pulmonary embolus.
[2022-06-28] MEDS ORDERED: IPRATROPIUM BROM 0.5MG/2.5ML NEB PRN (17:00)
[2022-06-28] MEDS ORDERED: ALBUTEROL 2.5 MG/3 ML NEB SOL NEB PRN (17:00)
[2022-06-28] MEDS ORDERED: FUROSEMIDE 40 MG/4 ML VIAL IV SCH (17:00)
--- NOTE | 2022-06-28 17:08 | P.PN ---
Brief Renal note (full consult note to follow by [facility] team) Chart review only. Pt briefly known to me from clinic consultation in early May based on referral from his PCP for mild renal insufficiency, hyperkalemia and dipstick proteinuria on testing in Apr with Cr level then ~ 1.44 mg/dl in the setting of ACEi use and other for chronic HTN although BP was not elevated in clinic. Pt presents now with HILDA on potential CKD NOS in the setting of hypotension, Afib and possibly other. BNP elevated but chest CT did not report ground glass opacities or effusions and with hypotension on admission, would hold off any diuresis attempts just yet but will similarly hold off on volume challenge if BP improving with rate control. Pt was down on the ground for some time but CPK not elevated. WBC markedly elevated but lactic acid level not, infectious w/u per primary team. Thank you for the referral, Blaze Bass MD, PATRIC
[2022-06-28] MEDS ORDERED: METHYLPREDNISOLONE 40 MG INJ ONE (17:49)
[2022-06-28] MEDS ORDERED: ASPIRIN EC 81 MG TAB PO ONE (17:49)
[2022-06-28] MEDS ORDERED: PIPERACIL/TAZO 3.375 GM VIAL IV ONE (17:49)
[2022-06-28] MEDS ORDERED: NA CHLORIDE 0.9% 100 ML IV ONE (17:50)
[2022-06-28 18:12] LABS: Urine Blood Trace-lysed (Negative); Urine Glucose Negative (Negative); Urine Protein 2+ (Negative); Urine Specific Gravity 1.015 (1.005-1.030); Urine pH 5.5 (5.0-7.0)
[2022-06-28] MEDS: PIPER TAZO 3.375 GM in NA CHLORIDE 0.9% 100 ML IV SCH (18:47)
[2022-06-28] MEDS: METHYLPREDNISOLONE 40 MG INJ IV SCH (18:47)
--- NOTE | 2022-06-28 19:30 | CON ---
Date of Consultation: 06/28/2022 Reason For Consultation: Atrial fibrillation with rapid ventricular response. History Of Present Illness: This is a 77-year-old male with past medical history of hypertension, dy slipidemia, and atrial fibrillation who presented to the emergency room because of dizziness that res ulted in a ground level fall in his closet. He did not sustain any injury. He did not lose consciou sness. Upon arrival, he was in atrial fibrillation with rapid ventricular response. The patient was given Cardizem and heart rate improved. The patient did well after that and he is asymptomatic. De nies having any chest pain at the present time. Past Medical History: As outlined above in the HPI. Medications: Refer to reconciliation sheet for detailed list. Allergies: NO KNOWN DRUG ALLERGIES. Family History: No premature coronary artery disease or cancer. Social History: He does not smoke or drink. Does not use any drugs. Review of Systems: All systems reviewed and they were negative except as mentioned in HPI. Physical Examination: Vital Signs: Reviewed. Head And Neck: Pupils are equal and reactive to light. Intact eye movements. No JVD. No cervical lymphadenopathy. Neck is supple. Thyroid is not enlarged. Lungs: Clear to auscultation bilaterally. No rhonchi, wheezing, or crackles. No accessory muscle u se. Heart: Irregularly irregular. No extra sounds. Abdomen: Soft, nontender. Bowel sounds positive. No organomegaly. No masses or hernia. No rigidi ty or rebound. Extremities: No clubbing or cyanosis. Intact pulses. Skin: No rash. Neurologic: Alert, awake, and oriented x3. No acute focal deficits appreciated. Investigations: Troponin is negative. NT-proBNP is 8038. BUN is 35 and creatinine is 2.1. Assessment/recommendation: 1.Atrial fibrillation with rapid ventricular response. We will load with amiodarone intravenously. Start with 150 mg bolus over 10 minutes and then 1 mg/minute for 6 hours and then 0.5 mg/minute for 16 hours. Subsequently, if he stays in atrial fibrillation, despite amiodarone we will plan for jamison sesophageal echocardiogram guided cardioversion. 2.Elevated NT-proBNP, likely the patient has diastolic heart failure. Echo was ordered, awaiting re sults. 3.Hypertension. Blood pressure is controlled. Continue home medications. SR/MODL Voice ID: [id number] Report ID: [id number]
[2022-06-28] MEDS ORDERED: HEPARIN 5000 UNIT/ML 1 ML VIAL SQ SCH (21:00)
[2022-06-29] MEDS: METHYLPREDNISOLONE 40 MG INJ IV SCH (01:25)
[2022-06-29] MEDS: PIPER TAZO 3.375 GM in NA CHLORIDE 0.9% 100 ML IV SCH ×3 (01:25→17:30)
[2022-06-29 05:03] LABS: Absolute Lymphocytes (CBC) 0.4 K/uL (0.7-4.9); Hematocrit 35.9 % (39.6-49.0); Lymphocytes % 2.2 % (15.3-44.8); MCV 73.2 fL (80-100); MPV 7.9 fL (7.6-11.3); RBC Red Blood Cell Count 4.91 M/uL (4.33-5.43)
[2022-06-29 05:24] LABS: Potassium 4.5 mmol/L (3.5-5.1)
--- NOTE | 2022-06-29 07:26 | ECHO ---
HEIGHT: 5 ft 10 in WEIGHT: 265 lb 14.4 oz DATE OF STUDY: 06/28/[address]: Lanny Ruiz 2-DIMENSIONAL: YES M.MODE: YES DOPPLER: YES COLOR FLOW: YES TDS: NO PORTABLE: YES DEFINITY: NO BUBBLE STUDY: NO DIAGNOSIS: SUSPECTED CONGESTIVE HEART FAILURE/ ATRIAL FIBRILLATION CARDIAC HISTORY: CATHERIZATION: SURGERY: PROSTHETIC VALVE: PACEMAKER: MEASUREMENTS (cm) DIASTOLIC (NORMALS) SYSTOLIC (NORMALS) IVSd 1.1 (0.6-1.2) LA Diam 4.7 (1.9-4.0) LVEF 51% LVIDd 5.0 (3.5-5.7) LVIDs 3.7 (2.0-3.5) %FS 26% LVPWd 1.1 (0.6-1.2) Ao Diam 2.5 (2.0-3.7) 2 DIMENSIONAL ASSESSMENT: RIGHT ATRIUM: NORMAL LEFT ATRIUM: ENLARGED RIGHT VENTRICLE: NORMAL LEFT VENTRICLE: NORMAL TRICUSPID VALVE: MILD TRICUSPID REGURGITATION MITRAL VALVE: MILD MITRAL REGURGITATION PULMONIC VALVE: NORMAL AORTIC VALVE: CALCIFIED PERICARDIAL EFFUSION: NONE AORTIC ROOT: NORMAL LEFT VENTRICULAR WALL MOTION: ATRIAL FIBRILLATION. DOPPLER/COLOR FLOW: SEE BELOW. COMMENTS: 1. NORMAL LEFT VENTRICULAR EJECTION FRACTION 55-60%. 2. ATRIAL FIBRILLATION. 3. LEFT ATRIAL ENLARGEMENT. 4. MILD MITRAL REGURGITATION. 5. MILD TRICUSPID REGURGITATION. 6. AORTIC VALVE SCLEROSIS, NO AORTIC STENOSIS. TECHNOLOGIST: STEPHANY BOCANEGRA
[2022-06-29] MEDS ORDERED: INFLUENZA VACCINE (for 6+ mo) 0.5 ML DOSE IMVAC ONE (08:00)
[2022-06-29] MEDS ORDERED: PNEUMOCOCCAL VACCINE 0.5 ML IMVAC ONE (08:00)
--- NOTE | 2022-06-29 08:31 | P.CNS ---
Date of Consult: 06/29/22 Reason for Consult: Left lower lobe lung mass Chief Complaint: Left lower lobe lung mass History of Present Illness: Patient is 77 years of age metabolic syndrome hypertension A. fib COPD admitted with a fall he denies any chest pain shortness of breath patient does see a tile installer in [place] he was admitted here to the hospital has a history of A. fib is back to his baseline edema has improved Patient is chronic renal failure Allergies No Known Allergies Allergy (Unverified 06/28/22 11:50) Home Medications: Amlodipine [Norvasc] 10 mg PO DAILY 06/28/22 Apixaban [Eliquis] 5 mg PO BID 06/28/22 Finasteride 5 mg PO DAILY 06/28/22 Gabapentin 300 mg PO BEDTIME 06/28/22 Hydrocodone Bit/Acetaminophen [Hydrocodon-Acetaminophen 5-500] 1 tab PO Q4HR PRN 06/28/22 Metformin ER [Glucophage ER*] 500 mg PO BEDTIME 06/28/22 Metoprolol Tartrate 50 mg PO BID* 06/28/22 Pravastatin [Pravachol] 80 mg PO DAILY 06/28/22 Albuterol Sulfate [Proair Respiclick] 1 puff IH DAILY 06/29/22 Umeclidinium Brm/Vilanterol Tr [Anoro Ellipta 62.5-25 Mcg INH] 1 each IH BEDTIME 06/29/22 - Past Medical/Surgical History Diabetic: No -: COPD -: HTN -: HLD -: AFib -: Chronic Back pain -: bilateral heel sx -: left knee replacement - Social History Alcohol use: No CD- Drugs: Yes Caffeine use: Yes Place of Residence: Home Review of Systems 10-point ROS is otherwise unremarkable General: Weakness Respiratory: Shortness of Breath Physical Examination Temp Pulse Resp BP Pulse Ox 96.9 F 96 H 18 124/69 95 06/29/22 04:00 06/29/22 04:00 06/29/22 04:00 06/29/22 04:00 06/29/22 04:00 General: Alert, In no apparent distress, Oriented x3 Neck: Supple Respiratory: Clear to auscultation bilaterally Cardiovascular: No edema, Irregular heart rate/rhythm Gastrointestinal: Normal bowel sounds, Soft and benign Laboratory Data (last 24 hrs) 06/28/22 08:05: WBC 26.80 H*, Hgb 10.6 L, Hct 33.8 L, Plt Count 515 H 06/28/22 08:05: Sodium 138, Potassium 4.3, BUN 35 H, Creatinine 2.11 H, Glucose 140 H - Problems (1) Mass of lower lobe of left lung Current Visit: Yes Status: Acute Plan: Patient is 77 years of age with a significant history of tobacco abuse he quit a long time ago he smoked for more than 30 years to 3 packs a day also has a history of COPD sees a tile installer in [place] Dr. Marrero. He is currently stabilized on Anoro and short acting bronchodilator. He will need a work-up really suspicious for lung cancer inform patient need pulmonary function testing lung biopsy and a PET scan can either follow-up with me or his tile installer his oxygenation is satisfactory no evidence of pulmonary embolus chronic renal failure patient's white count was very elevated on admission he also has a mild microcytic anemia there is no evidence of pneumonia on a chest x-ray or the CT scan
--- NOTE | 2022-06-29 09:39 | P.CNS ---
Date of Consult: 06/29/22 Reason for Consult: HILDA/ CKD Requesting Physician: Chris Miller Chief Complaint: Left lower lobe lung mass History of Present Illness: Patient is a 77-year-old male with a past medical history significant for hyper tension, hyperlipidemia, atrial fibrillation, chronic back pain COPD, BPH, peripheral neuropathy who presents with complaint of elevated heart rate and fall. Patient reported that he went to use the bathroom yesterday in the night and was temporarily confused. Patient's spouse reported that patient went into the closet where he fell. Spouse reported that patient expresses temporary confusion whenever he takes his [place]. Patient denies hitting his head or losing consciousness when he fell. Spouse reported that she could not get patient up and had to call EMS. During EMS assessment, patient was found to have an elevated heart rate. Patient is a poor historian and unable to provide accurate history. Patient reported associated signs and symptoms of shortness of breath with exertion and bilateral lower extremity edema. Patient denies any other signs or symptoms. Symptoms are aggravated or relieved by nothing. Patient was brought to the hospital for medical evaluation. 08:09 This 77 yrs old Male presents to ER via EMS with complaints of A Fib - fall. kdr 08:09 Patient states that he was up earlier this morning and in his closet when he fell to kdr the ground and was unable to get up for some time. His was home but she was not aware initially that he had fallen. He had to call her into the closet. She was unable to get him off the floor so EMS was called. Patient denies any new injuries. He has a history of chronic back pain and he states that this is no different or worse at this time. He denies chest pain or shortness of breath. He is otherwise alert and oriented and nontoxic appearing. His vital signs are unstable and that he has a heart rate in the 120s to 130s. His blood pressure initially started at in the 90s but is slowly drifted down slightly. Currently 89/53 with a MAP of 64. The patient is currently alert and oriented and asymptomatic with regard to his blood pressure and pulse. Onset: The symptoms/episode began/occurred suddenly, just prior to arrival. Severity of symptoms: At their worst the symptoms were moderate in the emergency department the symptoms are unchanged. The patient has not experienced similar symptoms in the past. The patient has not recently seen a physician. Patient states he has a history of A. fib. EMS after their initial assessment, administered 25 mg of Cardizem. It is unknown what the before and after vital signs were at this time.. He reports intermittent ibuprofen between his hydrocodone for his back pain. No urinary difficulties. Allergies No Known Allergies Allergy (Unverified 06/28/22 11:50) Home medications list reviewed: Yes Home Medications: Amlodipine [Norvasc] 10 mg PO DAILY 06/28/22 Apixaban [Eliquis] 5 mg PO BID 06/28/22 Finasteride 5 mg PO DAILY 06/28/22 Gabapentin 300 mg PO BEDTIME 06/28/22 Hydrocodone Bit/Acetaminophen [Hydrocodon-Acetaminophen 5-500] 1 tab PO Q4HR PRN 06/28/22 Metformin ER [Glucophage ER*] 500 mg PO BEDTIME 06/28/22 Metoprolol Tartrate 50 mg PO BID* 06/28/22 Pravastatin [Pravachol] 80 mg PO DAILY 06/28/22 Albuterol Sulfate [Proair Respiclick] 1 puff IH DAILY 06/29/22 Umeclidinium Brm/Vilanterol Tr [Anoro Ellipta 62.5-25 Mcg INH] 1 each IH BEDTIME 06/29/22 - Past Medical/Surgical History Diabetic: No -: COPD -: HTN -: HLD -: AFib -: CKD III with proteinuria followed by Dr. Bass -: CLBP -: Left Lung Mass 06-28-22 -: bilateral heel sx -: left knee replacement - Social History Alcohol use: No CD- Drugs: Yes Caffeine use: Yes Place of Residence: Home Review of Systems 10-point ROS is otherwise unremarkable General: Weakness Musculoskeletal: Back Pain Physical Examination Temp Pulse Resp BP Pulse Ox 96.8 F 110 H 19 125/72 95 06/29/22 08:00 06/29/22 08:00 06/29/22 08:00 06/29/22 08:00 06/29/22 08:00 General: Alert, In no apparent distress, Oriented x3, Cooperative HEENT: Atraumatic Neck: Supple Respiratory: Clear to auscultation bilaterally Cardiovascular: Regular rate/rhythm, Edema Gastrointestinal: Soft and benign, Non-distended Musculoskeletal: No clubbing, No contractures Integumentary: No rashes, No cyanosis Neurological: Normal speech Blood work reviewed in the chart. Imagings Data: EXAM DESCRIPTION: CT - Thorax Wo Con CLINICAL HISTORY: Chest pain Atrial fibrillation and shortness of breath COMPARISON: Chest Single View dated 06/28/2022 FINDINGS: Lobulated soft tissue mass is seen measuring 4.3 x 3.1 cm in the left lung base anteriorly. This abuts both the pleura and pericardium. Additional 2 small nodules are present in the left base medially measuring 10 mm in the left posterior gutter and 13 mm in the medial left base abutting the posterior mediastinal pleural surface. Findings are quite suspicious for lung malignancy. Position of this mass adjacent to rib in very close to the heart would make percutaneous biopsy technically challenging. Diffuse COPD is present. Tiny nodule is seen in the anterior right upper lobe measuring 5 mm. Thyroid gland is mildly prominent. Mildly prominent lymph nodes in the mediastinum noted. Several vague low-density lesions are present in the liver. No destructive bone lesion. All CT scans are performed using dose optimization technique as appropriate and may include automated exposure control or mA/KV adjustment according to patient size. IMPRESSION: Lobulated large pulmonary mass in the left base anteriorly highly suspicious for malignancy. Smaller satellite nodules are present in the left base as detailed. Nonspecific low-density lesions in the liver could represent cysts, although early metastatic lesions cannot be ruled out on noncontrast study. Recommend follow-up nonemergent MRI liver protocol with contrast. EXAM DESCRIPTION: RAD - Chest Single View - 06/28/2022 8:51 am CLINICAL HISTORY: falll from standing Chest pain. COMPARISON: Abdomen 1 View (KUB) dated 05/08/2016; ABDOMEN 1 VIEW KUB dated 03/29/2015; ABDOMEN 1 VIEW KUB dated 03/11/2014; CHEST PA AND LAT 2 VIEW dated 01/07/2014 FINDINGS: Portable technique limits examination quality. 3-4 cm pleural based mass is seen in the left lower lobe laterally. The lungs are clear acute infiltrate but are mildly emphysematous. Heart is mildly prominent. CT follow-up recommended. EXAM DESCRIPTION: NM - Vent Perfusion VQ Scan - 06/28/2022 2:53 pm CLINICAL HISTORY: Shortness of breath/elevated D-dimer COMPARISON: June 28, 2022 CT chest TECHNIQUE: 18.0 Mci [id number] was administered by inhalation. First breath, equilibrium, and washout images of the lungs obtained 6.9 millicuries Technetium-99 MAA was administered intravenously. Anterior, posterior, lateral and oblique views of the lungs were taken. FINDINGS: The patient could not follow breathing instructions so the ventilation images are nondiagnostic Perfusion sequences demonstrate normal radiotracer activity within the right lung. There is also normal radiotracer uptake within the left lung on all of the images except the posterior view. Most of the diminished radiotracer uptake is probably due to a combination of attenuation from the heart and left basilar lung mass IMPRESSION: Examination is somewhat limited as ventilation images could not be obtained. Patient probably has a low probability for a pulmonary embolus. LEFT VENTRICULAR WALL MOTION: ATRIAL FIBRILLATION. DOPPLER/COLOR FLOW: SEE BELOW. COMMENTS: 1. NORMAL LEFT VENTRICULAR EJECTION FRACTION 55-60%. 2. ATRIAL FIBRILLATION. 3. LEFT ATRIAL ENLARGEMENT. 4. MILD MITRAL REGURGITATION. 5. MILD TRICUSPID REGURGITATION. 6. AORTIC VALVE SCLEROSIS, NO AORTIC STENOSIS. Conclusions/Impression: Stage I HILDA in the setting of intermittent ibuprofen CKD III with proteinuria -No NSAIDs Hyponatremia -Encourage nutrition HTN with CKD -Hold antihypertensives at this time DM II with CKD A1C 5.5 -No sugar diet -Hold metformin Anemia in chronic illness Microcytosis -Monitor H&H -Check iron status BPH? -Continue Finasteride -Monitor for urinary retention COPD Left lung mass -Pulmonary following Thank you kindly for the consultation
[2022-06-29] MEDS: ASPIRIN 81 MG CHEWABLE TABLET PO SCH (10:09)
[2022-06-29] MEDS: APIXABAN 5 MG TABLET PO SCH ×2 (10:09→20:39)
[2022-06-29 11:55] VITALS: BMI 38.1
--- NOTE | 2022-06-29 15:35 | EKG ---
Test Date: 2022-06-28 Test Time: 07:57:59 Food Technology Teacher: ARNULFO MEASUREMENT RESULTS: Intervals: Rate: 119 ME: QRSD: 146 QT: 346 QTc: 486 [place]: P: ME: QRS: -33 T: -27 INTERPRETIVE STATEMENTS: Atrial fibrillation with rapid ventricular response Left axis deviation Right bundle branch block Abnormal ECG Compared to ECG 12/14/2009 08:26:51 Left-axis deviation now present Sinus rhythm no longer present Electronically Signed On 06-29-22 15:32:43 STAFF COMB[employer] OFFICER by Mani Blue
--- NOTE | 2022-06-29 17:45 | PN ---
Date of Progress Note: 06/29/2022 Subjective: Seen by bedside. Clinically well. No new complaints. Review of Systems: No chest pain, shortness of breath, orthopnea, cough, nausea, vomiting, diarrhea. All other systems reviewed and they were negative. Physical Examination: Vital Signs: Reviewed. Head and Neck: Pupils are equal, reactive to light. Intact eye movements. No JVD. No cervical lym phadenopathy. Neck is supple. Thyroid is not enlarged. Lungs: Clear to auscultation bilaterally. No rhonchi, wheezing, or crackles. No accessory muscle u se. Heart: Irregularly irregular. No extra sounds. Abdomen: Soft, nontender. Bowel sounds positive. No organomegaly. No masses or hernia. No rigidi ty or rebound. Extremities: No clubbing or cyanosis. Intact pulses. Skin: No rash. Neurologic: Alert, awake, oriented x3. No acute focal deficits appreciated. Investigations: BUN 31, creatinine 1.6, and hemoglobin is 11.3. Assessment And Recommendations: 1.Atrial fibrillation with rapid ventricular response. Continue amiodarone for full 24 hours and th en switch it to 200 mg by mouth twice a day. Continue Eliquis. Plan for EDWIN-guided cardioversion if he continues to be in sinus by tomorrow. 2.Elevated troponin, likely demand ischemia. He has a stress test scheduled as an outpatient. 3.Acute renal failure. This is resolving nicely. To be careful with fluid management due to conges tive heart failure history. SR/MODL Voice ID: [id number] Report ID: [id number]
--- NOTE | 2022-06-29 19:04 | P.PN ---
Subjective Date of Service: 06/29/22 Chief Complaint: Left lower lobe lung mass No acute events overnight. He reports that he feels better this morning. He denies chest pain or palpitations. He remains on the amiodarone drip and his heart rate has been decently controlled. Plan to wean off of amiodarone drip today and monitor leukocytosis. Review of Systems 10-point ROS is otherwise unremarkable Physical Examination - Vital Signs Temperature: 97 F Blood Pressure: 124/76 Pulse: 98 Respirations: 18 Pulse Ox (%): 99 - Physical Exam General: Alert, In no apparent distress, Oriented x3 HEENT: Atraumatic, Mucous membr. moist/pink, EOMI, Sclerae nonicteric Neck: JVD not distended Respiratory: Clear to auscultation bilaterally, Diminished Cardiovascular: No edema, No murmurs, Irregular heart rate/rhythm Gastrointestinal: Normal bowel sounds, Soft and benign, Non-distended, No tenderness, No rebound, No guarding Musculoskeletal: No clubbing Integumentary: No rashes Neurological: Normal speech, Normal affect Assessment And Plan - Plan # Paroxysmal Atrial Fibrillation with Rapid Ventricular Response # Hypertension His [id number] = 3 (HTN=1, Age>75=2). - Evaluation thus far: - Troponin = 56.9 -> 37.5 -> 41.5 - Potassium = 4.3, Magnesium = 2.2 - Target K> 4, Mg >2 - TSH = 0.485 - NT Pro-BNP = 8038 - Transthoracic echocardiogram = "1. normal left ventricular ejection fraction 55-60%. 2. atrial fibrillation. 3. left atrial enlargement. 4. mild mitral regurgitation. 5. mild tricuspid regurgitation. 6. aortic valve sclerosis, no aortic stenosis." - For rate control: - plan to transition from amiodarone drip to PO amiodarone today - For anticoagulation: - continue home apixaban - Cardiology consulted and Dr. Blue following - recommendations appreciated - Recommends EDWIN-DCCV tomorrow if he has not converted to normal sinus rhythm # Lung Mass with concern for Malignancy # Chronic Obstructive Pulmonary Disease - no evidence of exacerbation # History of Heavy Tobacco Use - Evaluation thus far: - Chest x-ray = "3-4 cm pleural based mass is seen in the left lower lobe laterally. The lungs are clear acute infiltrate but are mildly emphysematous. Heart is mildly prominent. CT follow-up recommended." - V/Q scan = "patient probably has a low probability for a pulmonary embolus." - CT chest = "lobulated large pulmonary mass in the left base anteriorly highly suspicious for malignancy. Smaller satellite nodules are present in the left base as detailed. Nonspecific low-density lesions in the liver could represent cysts, although early metastatic lesions cannot be ruled out on noncontrast study." - Consulted Pulmonary Medicine and Dr. Romero following - recommendations appreciated - I had an extensive discussion with him and his regarding his imaging findings and my high suspicion for an underlying lung malignancy. They verbalized understanding and asked what the next steps would be. I advised that he schedule a Pulmonary Medicine as well as an Oncology follow-up. He agreed to make these appointments. # KDIGO Stage I Acute Kidney Injury on Chronic Kidney Disease Stage III - Nephrology consulted and spoke with Dr. Mcpherson - recommendations appreciated - Creatinine = 2.11 -> 1.60 (baseline creatinine ~1.4-1.5) - Urinalysis = trace blood, 2+ protein - Monitor creatinine and urine output - If worsening, obtain renal ultrasound - Renally dose medications # SIRS Criteria (Tachycardia, Leukocytosis) without evidence of infection - Possibly due to cancer and atrial fibrillation - Started empirically on piperacillin-tazobactam on admission - plan to complete a 5-day empiric course given improvement in leukocytosis # Obesity - BMI 38.2 kg/m2 - Lifestyle modifications Chris Miller M.D.
[2022-06-29] MEDS: METOPROLOL TAR 50 MG TAB PO SCH (20:39)
[2022-06-29] MEDS: GABAPENTIN 300 MG CAP PO SCH (20:39)
[2022-06-29] MEDS: AMIODARONE HCL 200 MG TAB PO SCH (20:40)
[2022-06-29] MEDS: HOME MED 1 EA UNK (Umeclidinium Brm/Vilanterol Tr [Anoro Ellipta 62.5-25 Mcg Inh] Blst.W.D IH SCH (21:00)
[2022-06-30] MEDS: PIPER TAZO 3.375 GM in NA CHLORIDE 0.9% 100 ML IV SCH ×3 (00:10→16:36)
[2022-06-30 04:30] LABS: Absolute Lymphocytes (CBC) 1.1 K/uL (0.7-4.9); Hematocrit 35.3 % (39.6-49.0); Lymphocytes % 4.8 % (15.3-44.8); MCV 72.7 fL (80-100); MPV 7.9 fL (7.6-11.3); RBC Red Blood Cell Count 4.85 M/uL (4.33-5.43)
[2022-06-30 04:47] LABS: Potassium 4.5 mmol/L (3.5-5.1)
[2022-06-30] MEDS ORDERED: METOPROLOL TAR 50 MG TAB PO SCH (09:00)
[2022-06-30] MEDS: ATORVASTATIN 10 MG TAB PO SCH (09:00)
[2022-06-30] MEDS ORDERED: AMLODIPINE 10 MG TAB PO SCH (09:00)
[2022-06-30] MEDS: FINASTERIDE 5 MG TAB PO SCH (09:00)
--- NOTE | 2022-06-30 09:48 | RAD REPORT ---
EXAM DESCRIPTION: US - Liver Only - 06/30/2022 9:39 am CLINICAL HISTORY: Liver masses COMPARISON: 2018June 28, 2022 CT chest FINDINGS: The liver has normal echotexture. Multiple cysts are present. Largest is septated measurin g 3.8 centimeters. Hepatopetal flow The spleen measures 9 centimeters IMPRESSION: Hepatic cysts
[2022-06-30] MEDS ORDERED: MIDAZOLAM HCL 5 ML ONE (11:37)
[2022-06-30] MEDS ORDERED: FLUMAZENIL 0.1 MG/ML (5 mL VIAL) IV ONE (11:37)
[2022-06-30] MEDS ORDERED: MIDAZOLAM HCL 2 MG/2 ML INJ ONE (11:37)
[2022-06-30] MEDS ORDERED: METOPROLOL TARTRATE 5 MG/5 ML INJ IV ONE (11:37)
[2022-06-30] MEDS ORDERED: ATROPINE SULF 1 MG/10 ML SYR IV ONE (11:38)
[2022-06-30] MEDS ORDERED: PHENOL 1.4% ORAL SPRAY 180ML ONE (11:38)
[2022-06-30] MEDS ORDERED: LIDOCAINE VISCOUS 2% SOLN 15 ML UDC ONE (11:38)
[2022-06-30] MEDS ORDERED: NA CHLORIDE 0.9% 500 ML ONE (11:40)
[2022-06-30] MEDS: APIXABAN 5 MG TABLET PO SCH ×2 (12:04→21:52)
[2022-06-30] MEDS: AMIODARONE HCL 200 MG TAB PO SCH ×2 (12:04→21:52)
[2022-06-30] MEDS: ASPIRIN 81 MG CHEWABLE TABLET PO SCH (12:04)
[2022-06-30] MEDS: METOPROLOL TAR 50 MG TAB PO SCH ×2 (12:04→16:37)
--- NOTE | 2022-06-30 12:04 | P.PN ---
Nephrology note (S) Pt reports feeling better overall, lying in bed comfortably, no CP or dyspnea or cough or pleurisy reported (O) Vitals reviewed in the EMR General: Alert, In no apparent distress, Oriented x3, Cooperative HEENT: Atraumatic Neck: Supple Respiratory: Clear to auscultation bilaterally mostly, no wheezes or rhonchi anteriorly Cardiovascular: Non tachy, irregular, trace distal edema Gastrointestinal: Soft and benign, Non-distended Musculoskeletal: No clubbing, No contractures Integumentary: No rashes, No cyanosis Neurological: Normal speech, awake, alert, non focal Blood work reviewed in the chart. Echo results LEFT VENTRICULAR WALL MOTION: ATRIAL FIBRILLATION. DOPPLER/COLOR FLOW: SEE BELOW. COMMENTS: 1. NORMAL LEFT VENTRICULAR EJECTION FRACTION 55-60%. 2. ATRIAL FIBRILLATION. 3. LEFT ATRIAL ENLARGEMENT. 4. MILD MITRAL REGURGITATION. 5. MILD TRICUSPID REGURGITATION. 6. AORTIC VALVE SCLEROSIS, NO AORTIC STENOSIS. Conclusions/Impression: Stage I HLIDA 2nd to low BP, possible recent ACEi use, Afib with RVR, other CKD IIIa underlying with mild proteinuria -Cr level has improved. Hx of essential HTN with hypotension on admission -Hypotension improved, cont to hold scheduled anti hypertensives Afib unspecified Management per Cardiology COPD Left lung mass -Pulmonary following, resp status stable. On Abx for possible PNA with leukocytosis noted, unspecified organism, other.
--- NOTE | 2022-06-30 17:09 | PN ---
Date of Progress Note: 06/30/2022 Subjective: Seen by bedside, doing well, remains in atrial fibrillation. Review of Systems: No chest pain, shortness of breath, orthopnea, cough, nausea, vomiting, diarrhea. All other systems reviewed and they were negative. Physical Examination: Vital Signs: Reviewed. Head and Neck: Pupils are equal, reactive to light. Intact eye movements. No JVD. No cervical lym phadenopathy. Neck: Supple. Thyroid is not enlarged. Lungs: Clear to auscultation bilaterally. No rhonchi, rales, or crackles. No accessory muscle use. Heart: Regular rate and rhythm. No extra sounds. Abdomen: Soft, nontender. Bowel sounds positive. No organomegaly. No rigidity or rebound. Extremities: No edema, clubbing, cyanosis. Intact pulses. Skin: No rashes. Neurologic: Alert, awake, oriented x3. No acute focal deficits appreciated. Lymph Nodes: No cervical or axillary lymphadenopathy. Investigations: The labs reviewed. Assessment And Recommendation: Atrial fibrillation with rapid ventricular response. He was loaded w ith IV amiodarone. We will plan for EDWIN cardioversion today. Continue oral amiodarone and Eliquis. SR/MODL Voice ID: [id number] Report ID: [id number]
--- NOTE | 2022-06-30 19:17 | P.PN ---
Subjective Date of Service: 06/30/22 Chief Complaint: Left lower lobe lung mass No acute events overnight. He reports that he feels at his baseline this morning. He denies chest pain or palpitations. He was transitioned off of the amiodarone drip overnight. His leukocytosis is worse this morning. Per Dr. Blue, plan for EDWIN-DCCV this morning. Review of Systems 10-point ROS is otherwise unremarkable Physical Examination - Vital Signs Temperature: 97.6 F Blood Pressure: 133/79 Pulse: 80 Respirations: 20 Pulse Ox (%): 95 Assessment And Plan - Plan - Physical Exam General: Alert, In no apparent distress, Oriented x3 HEENT: Atraumatic, Sclerae nonicteric Neck: JVD not distended Respiratory: Clear to auscultation bilaterally, Diminished Cardiovascular: No edema, No murmurs, Irregular heart rate/rhythm Gastrointestinal: Soft and benign, Non-distended, No tenderness, No rebound, No guarding Musculoskeletal: No clubbing Integumentary: No rashes Neurological: Normal speech, Normal affect # Paroxysmal Atrial Fibrillation with Rapid Ventricular Response # Hypertension His [id number] = 3 (HTN=1, Age>75=2). - Evaluation thus far: - Troponin = 56.9 -> 37.5 -> 41.5 - Potassium = 4.3, Magnesium = 2.2 - Target K> 4, Mg >2 - TSH = 0.485 - NT Pro-BNP = 8038 - Transthoracic echocardiogram = "1. normal left ventricular ejection fraction 55-60%. 2. atrial fibrillation. 3. left atrial enlargement. 4. mild mitral regurgitation. 5. mild tricuspid regurgitation. 6. aortic valve sclerosis, no aortic stenosis." - For rate control: - continue metoprolol + amiodarone - For anticoagulation: - continue home apixaban - Cardiology consulted and Dr. Blue following - recommendations appreciated - Plan for EDWIN-DCCV today # Lung Mass with concern for Malignancy # Chronic Obstructive Pulmonary Disease - no evidence of exacerbation # History of Heavy Tobacco Use - Evaluation thus far: - Chest x-ray = "3-4 cm pleural based mass is seen in the left lower lobe laterally. The lungs are clear acute infiltrate but are mildly emphysematous. Heart is mildly prominent. CT follow-up recommended." - V/Q scan = "patient probably has a low probability for a pulmonary embolus." - CT chest = "lobulated large pulmonary mass in the left base anteriorly highly suspicious for malignancy. Smaller satellite nodules are present in the left base as detailed. Nonspecific low-density lesions in the liver could represent cysts, although early metastatic lesions cannot be ruled out on noncontrast study." - Consulted Pulmonary Medicine and Dr. Romero following - recommendations appreciated - I had an extensive discussion with him and his regarding his imaging findings and my high suspicion for an underlying lung malignancy. They verbalized understanding and asked what the next steps would be. I advised that he schedule a Pulmonary Medicine as well as an Oncology follow-up. He agreed to make these appointments. # KDIGO Stage I Acute Kidney Injury on Chronic Kidney Disease Stage III - Nephrology consulted and spoke with Dr. Mcpherson - recommendations appreciated - Creatinine = 2.11 -> 1.60 -> 1.54 (baseline creatinine ~1.4-1.5) - Urinalysis = trace blood, 2+ protein - Monitor creatinine and urine output - If worsening, obtain renal ultrasound - Renally dose medications # SIRS Criteria (Tachycardia, Leukocytosis) without evidence of infection - Possibly due to cancer and atrial fibrillation - Started empirically on piperacillin-tazobactam on admission due to leukocytosis - Component of leukocytosis may be steroid-induced - Obtain RUQ ultrasound to evaluate for liver abscesses given hepatic lesions on CT # Obesity - BMI 38.2 kg/m2 - Lifestyle modifications Chris Miller M.D.
[2022-06-30] MEDS: HOME MED 1 EA UNK (Umeclidinium Brm/Vilanterol Tr [Anoro Ellipta 62.5-25 Mcg Inh] Blst.W.D IH SCH (21:00)
[2022-06-30] MEDS: GABAPENTIN 300 MG CAP PO SCH (21:52)
--- NOTE | 2022-06-30 22:31 | OP ---
Date of Procedure: 06/30/2022 Surgeon: COLIN CRUZ Procedures Performed: 1.Transesophageal echocardiogram. 2.Electrical cardioversion using 200 joules synchronized. Indications: Atrial fibrillation. Description Of Procedure: After risks, benefits, and alternatives were explained, the patient agreed to procedure and signed informed consent. The patient was brought into the endo suite room 3 and th en after proper time-out, the back of the throat was anesthetized using local lidocaine. Subsequentl y we gave 5 mg of Versed and then EDWIN probe was inserted without difficulty. There was no left atria l appendage or left atrial thrombus. Then, the probe was removed after full evaluation. Then synchr onized 200 joule electrical cardioversion was performed converting the rhythm into sinus successfully . Conclusion: Successful transesophageal echocardiogram guided electrical cardioversion into normal si nus rhythm. Plan: Continue amiodarone and Eliquis. SR/MODL Voice ID: [id number] Report ID: [id number]
[2022-07-01] MEDS: PIPER TAZO 3.375 GM in NA CHLORIDE 0.9% 100 ML IV SCH (00:08)
[2022-07-01] MEDS ORDERED: MELATONIN 5 MG TABLET PO PRN (00:54)
[2022-07-01 04:01] LABS: Absolute Lymphocytes (CBC) 1.9 K/uL (0.7-4.9); Hematocrit 33.6 % (39.6-49.0); Lymphocytes % 11.9 % (15.3-44.8); MCV 72.6 fL (80-100); MPV 7.5 fL (7.6-11.3); RBC Red Blood Cell Count 4.63 M/uL (4.33-5.43)
[2022-07-01 04:17] LABS: Potassium 4.3 mmol/L (3.5-5.1)
[2022-07-01 04:19] VITALS: O2SAT 96
--- NOTE | 2022-07-01 08:15 | P.DS ---
Admission Date: 06/28/22 Discharge Date: 07/01/22 Disposition: ROUTINE DISCHARGE Discharge Condition: GOOD Reason for Admission: Left lower lobe lung mass Consultations: 1. Cardiology 2. Nephrology 3. Pulmonary Medicine Hospital Course: DIAGNOSES: # Paroxysmal Atrial Fibrillation with Rapid Ventricular Response # Hypertension # KDIGO Stage I Acute Kidney Injury on Chronic Kidney Disease Stage III # Lung Mass with concern for Malignancy # Chronic Obstructive Pulmonary Disease - no evidence of exacerbation # History of Heavy Tobacco Use # SIRS Criteria (Tachycardia, Leukocytosis) without evidence of infection # Obesity - BMI 37.7 kg/m2 HOSPITAL COURSE: Mr. Ren Owusu is a pleasant 77 year old male with a past medical history significant for atrial fibrillation, hypertension, and chronic obstructive pulmonary disease who was admitted to the [facility] on 06/28/2022 for palpitations and a fall. He was admitted to the Medicine service. Upon further evaluation, he was found to be in atrial fibrillation with rapid ventricular response. His d-dimer was 1377 and his troponin trend was 56.9 -> 37.5 -> 41.5. His chest x-ray revealed, "3-4 cm pleural based mass is seen in the left lower lobe laterally. The lungs are clear acute infiltrate but are mildly emphysematous. Heart is mildly prominent. CT follow-up recommended." His CT chest revealed, "lobulated large pulmonary mass in the left base anteriorly highly suspicious for malignancy. Smaller satellite nodules are present in the left base as detailed." His V/Q sc an revealed, "patient probably has a low probability for a pulmonary embolus." His transthoracic echocardiogram revealed, ""1. normal left ventricular ejection fraction 55-60%. 2. atrial fibrillation. 3. left atrial enlargement. 4. mild mitral regurgitation. 5. mild tricuspid regurgitation. 6. aortic valve sclerosis, no aortic stenosis." Cardiology was consulted and he was evaluated by Dr. Blue. He was placed on an amiodarone drip; however, he remained in atrial fibrillation. On 06/30/2022, he underwent transesophageal echocardiogram with direct-current cardioversion. The procedure was successful and he converted to normal sinus rhythm. In addition to his atrial fibrillation, he was found to have an acute kidney injury. Nephrology was consulted and he was evaluated by Drs. Mcpherson and Kali. His creatinine stabilized over his hospitalization and Dr. Bass has cleared him for discharge with a close outpatient follow-up appointment. During his hospitalization, he was noted to have leukocytosis; however, a clear infectious source was never identified. A right upper quadrant ultrasound was obtained to evaluate for liver abscesses given the hepatic lesions not on his CT scan. The ultrasound revealed, "hepatic cysts." He was empirically started on antibiotics and his leukocytosis gradually improved. Additionally, he recieved steroids in the Emergency Department, which may have also been contributing to his leukocytosis. He appears well clinically and was discharged on an empiric course of antibiotics. Incidentally, his radiography studies revealed findings concerning for an un derlying pulmonary malignancy. I had an extensive discussion with him and his regarding his imaging findings and my high suspicion for an underlying lung malignancy. They verbalized understanding and asked what the next steps would be. I advised that he schedule a Pulmonary Medicine as well as an Oncology follow-up. He agreed to make these appointments. He states that, thus far, he has a Pulmonary appointment scheduled for 07/03/2022. On 07/01/2022, he was seen on morning rounds and deemed medically stable for discharge. He was discharged with instructions to schedule follow-up appointme nts with his PCP (Dr. Gonzalez), with Cardiology (Dr. Blue), with Pulmonary Medicine (Dr. Marrero), and with Nephrology (Dr. Bass). He was provided prescriptions for amoxicillin-clavulanate, amiodarone, and metoprolol (lower dose per Neph recs). He was given the opportunity to ask questions and reported no further questions. Furthermore, all questions were answered to the best of my ability. A copy of this discharge summary will be sent to the above providers to facilitate continuity of care. Today, I personally spent 25 minutes on his case, of which greater than 50% of the time was spent in patient education, counseling, and coordination of care as described above. - Physical Exam General: Alert, In no apparent distress, Oriented x3 HEENT: Atraumatic, Sclerae nonicteric Neck: JVD not distended Respiratory: Clear to auscultation bilaterally, Diminished Cardiovascular: Regular heart rate/rhythm, No edema, No murmurs, Gastrointestinal: Soft and benign, Non-distended, No tenderness Musculoskeletal: No clubbing Integumentary: No rashes Neurological: Normal speech, Normal affect Vital Signs/Physical Exam: Temp Pulse Resp BP Pulse Ox 97.5 F 84 18 110/56 L 97 07/01/22 04:00 07/01/22 04:00 07/01/22 04:00 07/01/22 04:00 07/01/22 04:00 Laboratory Data at Discharge: WBC 15.50 K/uL (4.3-10.9) H 07/01/22 03:47 Hgb 10.6 g/dL (13.6-17.9) L 07/01/22 03:47 Hct 33.6 % (39.6-49.0) L 07/01/22 03:47 Plt Count 496 K/uL (152-406) H 07/01/22 03:47 APTT Cancelled 06/28/22 17:43 Sodium 139 mmol/L (136-145) 07/01/22 03:47 Potassium 4.3 mmol/L (3.5-5.1) 07/01/22 03:47 BUN 39 mg/dL (7-18) H 07/01/22 03:47 Creatinine 1.76 mg/dL (0.70-1.30) H 07/01/22 03:47 Glucose 121 mg/dL (74-106) H 07/01/22 03:47 Phosphorus 2.7 mg/dL (2.5-4.9) 06/28/22 12:56 Magnesium 2.2 mg/dL (1.6-2.4) 06/28/22 12:56 Triglycerides 85 mg/dL (<150) 06/28/22 12:56 Cholesterol 81 mg/dL (<200) 06/28/22 12:56 HDL Cholesterol 31 mg/dL (40-60) L 06/28/22 12:56 Cholesterol/HDL Ratio 2.61 06/28/22 12:56 Home Medications: RX: Apixaban [Eliquis] 5 mg PO BID 06/28/22 RX: Finasteride 5 mg PO DAILY 06/28/22 RX: Gabapentin 300 mg PO BEDTIME 06/28/22 RX: Hydrocodone Bit/Acetaminophen [Hydrocodon-Acetaminophen 5-500] 1 tab PO Q4HR PRN 06/28/22 RX: Metformin ER [Glucophage ER*] 500 mg PO BEDTIME 06/28/22 RX: Pravastatin [Pravachol*] 80 mg PO DAILY 06/28/22 RX: Albuterol Sulfate [Proair Respiclick] 1 puff IH DAILY 06/29/22 RX: Umeclidinium Brm/Vilanterol Tr [Anoro Ellipta 62.5-25 Mcg INH] 1 each IH BEDTIME 06/29/22 Amox/Clavulanate [Augmentin 875-125 Tab] 875 mg PO BID 7 Days #14 tab 07/01/22 RX: Amiodarone HCl [Cordarone*] 200 mg PO BID #60 tab 07/01/22 RX: Aspirin Chewable [Aspirin Chewable*] 81 mg PO DAILY tab.chew 07/01/22 RX: Metoprolol Tartrate [Lopressor*] 25 mg PO BID #60 tab 07/01/22 New Medications: Amox/Clavulanate [Augmentin 875-125 Tab] 875 mg PO BID 7 Days #14 tab RX: Amiodarone HCl [Cordarone*] 200 mg PO BID #60 tab RX: Metoprolol Tartrate [Lopressor*] 25 mg PO BID #60 tab Physician Discharge Instructions: 1. Please call and schedule a follow-up appointment with your PCP (Dr. Gonzalez) in 3-5 days 2. Please call and schedule a follow-up appointment with Cardiology (Dr. Blue) in 5-7 days 3. Please attend your follow-up appointment with Nephrology (Dr. Bass) this week - Please have your blood work rechecked prior to this appointment 4. Please attend your Pulmonary appointment wit Dr. Marrero on 07/03/2022 - Please have him discuss a potential biopsy and Oncology (Cancer Doctor) referral Diet: Renal Activity: Ad altaf Followup: Blaze Bass [ACTIVE - CAN ADMIT] - Fredo Gonzalez DO [ACTIVE - CAN ADMIT] - Mani Blue MD [ACTIVE - CAN ADMIT] - Claire Marrero DO [OUTSIDE PHYSICIAN] - Time spent managing pt's care (in minutes): 25
[2022-07-01 08:36] VITALS: BP 131/74; TEMP 96.8
[2022-07-01] MEDS: ASPIRIN 81 MG CHEWABLE TABLET PO SCH (08:52)
[2022-07-01] MEDS: AMIODARONE HCL 200 MG TAB PO SCH (08:53)
[2022-07-01] MEDS: APIXABAN 5 MG TABLET PO SCH (08:53)
[2022-07-01] MEDS: FINASTERIDE 5 MG TAB PO SCH (08:53)
[2022-07-01] MEDS: ATORVASTATIN 10 MG TAB PO SCH (08:53)
[2022-07-01] MEDS: METOPROLOL TAR 50 MG TAB PO SCH (08:54)
--- NOTE | 2022-07-03 07:53 | TEE ---
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 TRANSESOPHEGEAL PROBE INSERTED WITHOUT DIFFICULTY 2. LEFT VENTRICULAR EJECTION FRACTION APPEARS NORMAL 3. MODERATE MITRAL REGURGITATION 4. NO LEFT ATRIAL APPENDAGE THROMBUS IS SEEN TECHNOLOGIST: STEPHANY ARSHAD
--- NOTE | 2022-07-03 16:57 | EKG ---
Test Date: 2022-07-01 Test Time: 08:30:06 [place]: TO MEASUREMENT RESULTS: Intervals: Rate: 77 [place]: 160 QRSD: 148 QT: 444 QTc: 502 [place]: P: 61 [place]: 160 QRS: -52 T: 16 INTERPRETIVE STATEMENTS: Normal sinus rhythm Left axis deviation Right bundle branch block Abnormal ECG Compared to ECG 06/30/2022 13:11:31 Left-axis deviation now present Electronically Signed On 07-03-22 16:55:06 MORTGAGE LOAN INTERVIEWER by Mani Blue
--- NOTE | 2022-07-03 17:02 | EKG ---
Test Date: 2022-06-30 Test Time: 13:11:31 Telephonic Nurse: ARNULFO MEASUREMENT RESULTS: Intervals: Rate: 69 OR: 172 QRSD: 146 QT: 448 QTc: 480 [place]: P: 47 OR: 172 QRS: -3 T: -10 INTERPRETIVE STATEMENTS: Normal sinus rhythm Right bundle branch block Abnormal ECG Compared to ECG 06/28/2022 07:57:59 Atrial fibrillation no longer present Left-axis deviation no longer present Electronically Signed On 07-03-22 16:56:36 PHOTOGRAPHIC LITHOGRAPHER by Mani Blue
== END 2022-07-01 10:09 | disposition home or self-care (01) | DRG 181 ==
LOC: ER 07:45 → ERHOLD 11:47 → 4TH 13:35
PROVIDERS: ADMIT Internal Medicine; ATTEND Internal Medicine
PROC: 5A2204Z Restoration of Cardiac Rhythm, Single (ICD-10-PCS; principal; 2022-06-30)
PROC: B24BZZ4 Ultrasonography of Heart with Aorta, Transesophageal (ICD-10-PCS; 2022-06-30)
DX: C34.32 Malignant neoplasm of lower lobe, left bronchus or lung (principal); E87.1 Hypo-osmolality and hyponatremia; N17.9 Acute kidney failure, unspecified; R65.10 Systemic inflammatory response syndrome (SIRS) of non-infectious origin without acute organ dysfunction; I48.0 Paroxysmal atrial fibrillation; E78.5 Hyperlipidemia, unspecified; G89.29 Other chronic pain; M54.9 Dorsalgia, unspecified; I12.9 Hypertensive chronic kidney disease with stage 1 through stage 4 chronic kidney disease, or unspecified chronic kidney disease; N18.30 Chronic kidney disease, stage 3 unspecified; E11.22 Type 2 diabetes mellitus with diabetic chronic kidney disease; E11.42 Type 2 diabetes mellitus with diabetic polyneuropathy; D63.1 Anemia in chronic kidney disease; I08.3 Combined rheumatic disorders of mitral, aortic and tricuspid valves; J44.9 Chronic obstructive pulmonary disease, unspecified; E66.09 Other obesity due to excess calories; R91.8 Other nonspecific abnormal finding of lung field; Z79.84 Long term (current) use of oral hypoglycemic drugs; Z79.01 Long term (current) use of anticoagulants; Z68.38 Body mass index [BMI] 38.0-38.9, adult; Z79.82 Long term (current) use of aspirin; Z79.899 Other long term (current) drug therapy; Z96.652 Presence of left artificial knee joint; Z87.891 Personal history of nicotine dependence; Z20.822 Contact with and (suspected) exposure to COVID-19; W18.30XA Fall on same level, unspecified, initial encounter; Y93.9 Activity, unspecified; Y92.098 Other place in other non-institutional residence as the place of occurrence of the external cause
CPT/HCPCS: 36415; 71045; 71250; 72148; 76705; 78582; 80048; 80061; 81003; 82550; 82947; 83036; 83605; 83735; 83880; 84100; 84439; 84443; 84484; 85025; 85379; 87040; 87811; 92960; 93005; 93306; 93312; 94760; 96365; 96367; 96375; 99285; A9540; A9558; J0282; J0461; J1170; J2250; J2543; J2920; J7040; J7060; J7613; J7644

== ENCOUNTER 2022-08-28 13:36 | Inpatient (IN) | payer OTHER ==
--- OUTSIDE RECORDS SUMMARY | 2022-08-28 13:40 | XMS REPORT | Clinical Summary ---
:1945 Author Organization [facility] MD [facility] Address [address] [place] [address] Care Team Providers Name Role Phone Fredo Gonzalez DO Unavailable Trevor Echevarria MD Primary Care Provider Allergies Not on File Medications Not on file Active Problems Not on file Encounters Date Type Specialty Care Team Description 08/25/2022 Travel 08/15/2022 Telephone Patient Access Services Hilary Blanco RN 08/14/2022 Travel after 08/28/2021 Social History Tobacco Use Types Packs/Day Years Used Date Smoking Tobacco: Never Assessed Sex Assigned at Date Recorded Not on file Job Start Date Occupation Industry Not on file Not on file Not on file COVID-19 Exposure Response Date Recorded In the last 10 days, have you been in contact with No / Unsu re 08/25/2022 2:49 PM CDT someone who was confirmed or suspected to have Coronavirus/COVID-19? Last Filed Vital Signs Not on file Plan of Treatment Date Type Specialty Care Team Description 09/20/2022 NPR Patient Access Services 09/25/2022 Office Visit Genitourinary Oncology Trevor Echevarria MD [address] [place], [place] [address] (Wo rk) Results Not on fileafter 08/28/2021 Insurance Payer Benefit Plan Subscriber ID Effective Phone Address Typ e / Group Dates MEDICARE MEDICARE PART [id number] 2010-Prese [phone] [facility] Medicare A AND B nt [id number] [place] [address] [employer] [id number] 2019-Prese [id number] [employer] ig[employer] [place] [id number] 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
--- OUTSIDE RECORDS SUMMARY | 2022-08-28 13:46 | XMS REPORT | Continuity of Care Document ---
:1945 Author Organization [facility] t Address [address] [facility] [address] [place] [id number] Care Team Providers Name Role Phone [id number] Primary Care Physician Unavailable SYSTEM, PROVIDER NOT IN Attending Clinician Unavailable Fredo Gonzlaez Attending Clinician Unavailable VINICIUS LAZAR Attending Clinician Unavailable VINICIUS LAZAR Attending Clinician Unavailable MAMI GONZALES Attending Clinician Unavailable MAMI GONZALES Attending Clinician Unavailable Mami Gonzales DO Attending Clinician Doctor Unassigned, [place] Attending Clinician Unavailable Colten Singleton MD Attending Clinician COLTEN SINGLETON Attending Clinician Unavailable ALEC HEDRICK Attending Clinician Unavailable JAYLA Aguilera Eloise Attending Clinician Lucia Campos RN Attending Clinician Unavailable Stephanie Vergara Attending Clinician Unavailable Hilary Blanco RN Attending Clinician Unavailable Hyacinth Jung Attending Clinician HYACINTH HAUSER Attending Clinician Unavailable [facility] Attending Clinician Unavailable ANTIONE HERNANDEZ Attending Clinician Unavailable ANTIONE HERNANDEZ Attending Clinician Unavailable Antione Hernandez MD Attending Clinician Layla Valenzuela MD Attending Clinician [phone] Bette VIDES, Anne Marie Edmonds Attending Clinician Unavailable AURN FOX Attending Clinician Unavailable Arun Fox MD Attending Clinician Tyesha HALEY, Mike Paredes Attending Clinician SAMANTHA VASQUEZ Attending Clinician Unavailable [facility], [facility] Sleep Lab Attending Clinician Unavailable Sandra Willis MD Attending Clinician SANDRA WILLIS Attending Clinician Unavailable SANDRA WILLIS Attending Clinician Unavailable Therapist, [facility] Respiratory Attending Clinician Unavailable Yan Zheng MD Attending Clinician YAN ZHENG Attending Clinician Unavailable [place], [facility] Test Attending Clinician Unavailable ALEC HEDRICK Admitting Clinician Unavailable HYACINTH HAUSER Admitting Clinician Unavailable ANTIONE HERNANDEZ Admitting Clinician Unavailable ARUN FOX Admitting Clinician Unavailable Arun Fox MD Admitting Clinician MAMI GONZALES Admitting Clinician Unavailable Payers Payer Name Policy Type Policy Number Effective Date Expiration Date Floyd rojas MEDICARE PART A [id number] 2010 \\T\\ B 00:00:00 [place] ANDREA PETTY [id number] 2019 00:00:00 Problems Condition Condition Condition Status Onset Resolution Last Treating Co mments Source Name Details Category Date Date Treatment Clinician Date Chronic Chronic Disease Active Univers kidney kidney 2- ity of disease disease 00:00: [place] (CKD) (CKD) 00 Medical Branch A-fib A-fib Disease Active Univers 2-27 ity of 00:00: [place] 00 Medical Branch Mass of [place] of Disease Active Univers left lung left lung 07-03 ity of 00:00: [place] 00 Medical Branch 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 Added automatic ally from request for surgery [id number] KE KE Disease Active Overview: Univer s (obstructi (obstructi 07-03 Formattin ity of ve sleep ve sleep 00:00: g of this [place] as apnea) apnea) 00 note Medical might be Branch different from the original. Added automatic ally from request for surgery [id number] No known No known Disease Metho di active active st problems problems Hospit a l Allergies, Adverse Reactions, Alerts Allergy Allergy Status Severity Reaction(s) Onset Inactive Treating Comm ents Source Name Type Date Date Clinician NO KNOWN Drug Active Univers ALLERGIE Class ity of [facility] Family History Family Member Diagnosis Comments Start Date Stop Date Source Natural father Hodgkin's lymphoma [facility] [place] [facility] Natural mother Breast cancer [facility] Social History Social Habit Start Date Stop Date Quantity Comments Source History of tobacco Cigarette Smoker University of use [facility] Exposure to 2022-08-15 2022-08-25 Not sure [facility]-CoV-2 (event) 00:00:00 14:49:00 [place] [facility] Tobacco use and 2022-07-04 2022-07-04 Former smokeless Uni versity of exposure 00:00:00 00:00:00 tobacco user [facility] Cigarettes smoked 2017-02-22 2017-02-22 [facility] current (pack per 00:00:00 00:00:00 [facility] day) - Reported Cigarette 2017-02-22 2017-02-22 [facility] pack-years 00:00:00 00:00:00 Hospital Sex Ass[birth year] Universit y of 00:00:00 00:00:00 [place] MD [facility] Smoking Status Start Date Stop Date Source Ex-smoker 2022-07-04 00:00:00 2022-07-04 00:00:00 [facility] Medications Ordered Filled Start Stop Current Ordering Indication Dosage Frequency Signature Comments Components Source Medication Medication Date Date Medication? Clinician (SIG) Name Name metoprolol Yes 25mg Take 0.5 Uni vers tartrate 50 3-16 tablets by it y of mg tablet 09:16: mouth in [facility] [place] the Medical morning Branch and 0.5 tablets in the evening. pravastatin Yes 80mg Take 1 Univ ers 80 mg 3-16 tablet by ity of tablet 09:16: mouth at [place] [address] bedtime. Medical Branch HYDROcodone Yes 1{tbl} Take 1 Un ijgna -acetaminop 3-16 tablet by ity of hen 5-325 09:16: [place] 01 the Medical morning Branch and 1 tablet in the evening. amiodarone 2023-0 Yes 200mg Take 1 Univ ers 200 mg 3-16 tablet by ity of tablet 09:16: mouth in [place] the Medical morning Branch and 1 tablet in the evening. apixaban 5 2023-0 Yes 5mg Take 1 Unive rs mg tablet 3-16 tablet by ity o f 09:16: mouth in [place] the Medical morning Branch and 1 tablet in the evening. finasteride 2023-0 Yes 5mg Take 1 Univ ers 5 mg tablet 3-16 tablet by ity of 09:16: mouth in [place] the Medical morning. Branch gabapentin 2023-0 Yes 300mg Take 1 Univ ers 300 mg 3-16 capsule by ity of capsule 09:16: mouth [place] [address] every Medical evening. Branch metformin 2023-0 Yes 500mg Take 1 Unive rs ER 500 mg 3-16 tablet by ity o f 24 hr 09:16: mouth [place] [facility] 01 daily with Medical breakfast. Branch aspirin 81 2023-0 Yes 81mg Take 1 Unive rs mg chewable 3-16 tablet by ity of tablet 09:16: mouth in [place] [address] the Medical morning. Branch metoprolol 2023-0 Yes 25mg Take 0.5 Uni vers tartrate 50 3-16 tablets by it y of mg tablet 09:16: mouth in [facility] [place] the Medical morning Branch and 0.5 tablets in the evening. pravastatin 2023-0 Yes 80mg Take 1 Univ ers 80 mg 3-16 tablet by ity of tablet 09:16: mouth at [place] [address] bedtime. Medical Branch HYDROcodone 2023-0 Yes 1{tbl} Take 1 Un jigna -acetaminop 3-16 tablet by ity of hen 5-325 09:16: mouth in [facility] s mg tablet 01 the Medical morning Branch and 1 tablet in the evening. amiodarone 2023-0 Yes 200mg Take 1 Univ ers 200 mg 3-16 tablet by ity of tablet 09:16: mouth in [place] the Medical morning Branch and 1 tablet in the evening. apixaban 5 2023-0 Yes 5mg Take 1 Unive rs mg tablet 3-16 tablet by ity o f 09:16: mouth in [place] [address] the Medical morning Branch and 1 tablet in the evening. finasteride 2023-0 Yes 5mg Take 1 Univ ers 5 mg tablet 3-16 tablet by ity of 09:16: mouth in [place] the Medical morning. Branch gabapentin 2022-0 Yes 300mg Take 1 Univ ers 300 mg 3-16 capsule by ity of capsule 09:16: mouth [place] every Medical evening. Branch metformin 2022-0 Yes 500mg Take 1 Unive rs ER 500 mg 3-16 tablet by ity o f 24 hr 09:16: mouth [place] tablet 01 daily with Medical breakfast. Branch aspirin 81 2022-0 Yes 81mg Take 1 Unive rs mg chewable 3-16 tablet by ity of tablet 09:16: mouth in [place] the Medical morning. Branch lidocaine 2022- No PRN, Univers 1% (PF) 08-16-08 Starting ity of (XYLOCAINE) 19:12: 19:12 on Sun [place] injection 00 :00 08/16/22 at [facility] 1312, Branch Until Sun08/16/22 at 1312, Routine, Intra-op lidocaine 2022- No PRN, Univers 1% (PF) 08-16- Starting ity of (XYLOCAINE) 19:12: 19:12 on Sun [place] injection 00 :00 08/16/22 at [facility] 1312, Branch Until Sun08/16/22 at 1312, Routine, Intra-op FENTanyl PF 2022- No Slow IV Un jigna (SUBLIMAZE 08-16-08 Push, PRN, it y of (PF)) 19:10: 19:51 Starting [place] injection 00 :00 on Sun08/16/22 at [place] 1310, Until Sun08/16/22 at 1351, Routine, Intra-op midazolam 2022- No IV Push, Uni vers (VERSED) 08-16-08 PRN, ity of injection 19:10: 19:51 Starting [place] as 00 :00 on Sun08/16/22 at [place] 1310, Until Sun08/16/22 at 1351, Routine, Intra-op FENTanyl PF 2022-2022- No Slow IV Un jigna (SUBLIMAZE 08-16-08 Push, PRN, it y of (PF)) 19:10: 19:51 Starting [place] injection 00 :00 on Sun08/16/22 at Branch 1310, Until Sun08/16/22 at 1351, Routine, Intra-op midazolam 2022-0 2022- No IV Push, Uni vers (VERSED) 3 03-08 PRN, ity of injection 19:10: 19:51 Starting [place] as 00 :00 on Sun08/16/22 at Branch 1310, Until Sun08/16/22 at 1351, Routine, Intra-op fludeoxyglu 2022-0 2022- No [id number] 15mCi 15 Univers cose F-18 07-2817 millicurie ity of (FDG) 18:30: 18:16 , [place] injection 00 :00 Intravenou Medi julio 15 s, ONCE, 1 [place] millicurie dose, On Sun07/28/22 at 1230, Routine iopamidol 0 2022- No [id number] 80mL 80 mL, Univers (ISOVUE 07-25 Intravenou ity o f 370-500 mL) 16:58: 16:58 s, ONCE, 1 [place] injection 00 :00 dose, On Medica l 80 mL [facility] 07/25/22 at 1115, Routine metoprolol 2022-0 Yes 25mg Take 25 mg U nivers tartrate 50 2-10 by mouth ity of mg tablet 11:15: in the [place] [address] morning Medical and 25 mg Branch in the evening. pravastatin 0 Yes 80mg Take 80 mg Univers 80 mg 2-10 by mouth ity of tablet 11:15: at [place] [address] bedtime. Medical Branch HYDROcodone 2022-0 Yes 1{tbl} Take 1 Un jigna -acetaminop 2-10 tablet by ity of hen 5-325 11:15: mouth in [facility] s mg tablet 02 the Medical morning Branch and 1 tablet in the evening. amiodarone 2022-0 Yes 200mg Take 200 Un jigna 200 mg 2-10 mg by ity of tablet 11:15: mouth in [place] 02 the Medical morning Branch and 200 mg in the evening. apixaban 5 2022-0 Yes 5mg Take 5 mg Un jigna mg tablet 2-10 by mouth ity of 11:15: in the [place] morning Medical and 5 mg Branch in the evening. finasteride 2023-0 Yes 5mg Take 5 mg U nivers 5 mg tablet 2-10 by mouth ity of 11:15: in the [place] morning. Medical Branch gabapentin 2022-0 Yes 300mg Take 300 Un jigna 300 mg 2-10 mg by ity of capsule 11:15: mouth [place] every Medical evening. Branch metformin 2022-0 Yes 500mg Take 500 Uni vers ER 500 mg 2-10 mg by ity of 24 hr 11:15: mouth [place] tablet 02 daily with Medical breakfast. Branch aspirin 81 2022-0 Yes 81mg Take 81 mg U nivers mg chewable 2-10 by mouth ity of tablet 11:15: in the [place] morning. Medical Branch metoprolol 2022-0 Yes 25mg Take 25 mg U nivers tartrate 50 2-10 by mouth ity of mg tablet 11:15: in the [place] morning Medical and 25 mg Branch in the evening. pravastatin 2022-0 Yes 80mg Take 80 mg Univers 80 mg 2-10 by mouth ity of tablet 11:15: at [place] [address] bedtime. Medical Branch HYDROcodone 2022-0 Yes 1{tbl} Take 1 Un jigna -acetaminop 2-10 tablet by ity of hen 5-325 11:15: mouth in [facility] s mg tablet 02 the Medical morning Branch and 1 tablet in the evening. amiodarone 2022-0 Yes 200mg Take 200 Un jigna 200 mg 2-10 mg by ity of tablet 11:15: mouth in [place] the Medical morning Branch and 200 mg in the evening. apixaban 5 2022-0 Yes 5mg Take 5 mg Un jigna mg tablet 2-10 by mouth ity of 11:15: in the [place] morning Medical and 5 mg Branch in the evening. finasteride 2022-0 Yes 5mg Take 5 mg U nivers 5 mg tablet 2-10 by mouth ity of 11:15: in the [place] morning. Medical Branch gabapentin 2022-0 Yes 300mg Take 300 Un jigna 300 mg 2-10 mg by ity of capsule 11:15: mouth [place] 02 every Medical evening. Branch metformin 2022-0 Yes 500mg Take 500 Uni vers ER 500 mg 2-10 mg by ity of 24 hr 11:15: mouth [place] tablet 02 daily with Medical breakfast. Branch aspirin 81 2022-0 Yes 81mg Take 81 mg U nivers mg chewable 2-10 by mouth ity of tablet 11:15: in the [place] morning. Medical Branch metoprolol 2022-0 Yes 25mg Take 25 mg U nivers tartrate 50 2-10 by mouth ity of mg tablet 11:15: in the [place] morning Medical and 25 mg Branch in the evening. pravastatin 2022-0 Yes 80mg Take 80 mg Univers 80 mg 2-10 by mouth ity of tablet 11:15: at [place] [address] bedtime. Medical Branch HYDROcodone 2022-0 Yes 1{tbl} Take 1 Un jigna -acetaminop 2-10 tablet by ity of hen 5-325 11:15: mouth in [facility] s mg tablet 02 the Medical morning Branch and 1 tablet in the evening. amiodarone 2022-0 Yes 200mg Take 200 Un jigna 200 mg 2-10 mg by ity of tablet 11:15: mouth in [place] the Medical morning Branch and 200 mg in the evening. apixaban 5 2022-0 Yes 5mg Take 5 mg Un jigna mg tablet 2-10 by mouth ity of 11:15: in the [place] morning Medical and 5 mg Branch in the evening. finasteride 2022-0 Yes 5mg Take 5 mg U nivers 5 mg tablet 2-10 by mouth ity of 11:15: in the [place] morning. Medical Branch gabapentin 2022-0 Yes 300mg Take 300 Un jigna 300 mg 2-10 mg by ity of capsule 11:15: mouth [place] every Medical evening. Branch metformin 2022-0 Yes 500mg Take 500 Uni vers ER 500 mg 2-10 mg by ity of 24 hr 11:15: mouth [place] tablet 02 daily with Medical breakfast. Branch aspirin 81 2022-0 Yes 81mg Take 81 mg U nivers mg chewable 2-10 by mouth ity of tablet 11:15: in the [place] morning. Medical Branch metoprolol 2022-0 Yes 25mg Take 25 mg U nivers tartrate 50 2-10 by mouth ity of mg tablet 11:15: in the [place] [address] morning Medical and 25 mg Branch in the evening. pravastatin 2022-0 Yes 80mg Take 80 mg Univers 80 mg 2-10 by mouth ity of tablet 11:15: at [place] [address] bedtime. Medical Branch HYDROcodone 2022-0 Yes 1{tbl} Take 1 Un jigna -acetaminop 2-10 tablet by ity of hen 5-325 11:15: [place] tablet 02 the Medical morning Branch and 1 tablet in the evening. amiodarone 2022-0 Yes 200mg Take 200 Un jigna 200 mg 2-10 mg by ity of tablet 11:15: mouth in [place] the Medical morning Branch and 200 mg in the evening. apixaban 5 2022-0 Yes 5mg Take 5 mg Un jigna mg tablet 2-10 by mouth ity of 11:15: in the [place] morning Medical and 5 mg Branch in the evening. finasteride 2022-0 Yes 5mg Take 5 mg U nivers 5 mg tablet 2-10 by mouth ity of 11:15: in the [place] morning. Medical Branch gabapentin 2022-0 Yes 300mg Take 300 Un jigna 300 mg 2-10 mg by ity of capsule 11:15: mouth [place] every Medical evening. Branch metformin 2022-0 Yes 500mg Take 500 Uni vers ER 500 mg 2-10 mg by ity of 24 hr 11:15: mouth [place] tablet 02 daily with Medical breakfast. Branch aspirin 81 2022-0 Yes 81mg Take 81 mg U nivers mg chewable 2-10 by mouth ity of tablet 11:15: in the [place] morning. Medical Branch metoprolol 2022-0 Yes 25mg Take 25 mg U nivers tartrate 50 2-10 by mouth ity of mg tablet 11:15: in the [place] morning Medical and 25 mg Branch in the evening. pravastatin 2022-0 Yes 80mg Take 80 mg Univers 80 mg 2-10 by mouth ity of tablet 11:15: at [place] [address] bedtime. Medical Branch HYDROcodone 2022-0 Yes 1{tbl} Take 1 Un jigna -acetaminop 2-10 tablet by ity of hen 5-325 11:15: [place] mg tablet 02 the Medical morning Branch and 1 tablet in the evening. amiodarone 2022-0 Yes 200mg Take 200 Un jigna 200 mg 2-10 mg by ity of tablet 11:15: mouth in [place] the Medical morning Branch and 200 mg in the evening. apixaban 5 2022-0 Yes 5mg Take 5 mg Un jigna mg tablet 2-10 by mouth ity of 11:15: in the [place] morning Medical and 5 mg Branch in the evening. finasteride 2022-0 Yes 5mg Take 5 mg U nivers 5 mg tablet 2-10 by mouth ity of 11:15: in the [place] morning. Medical Branch gabapentin 2022-0 Yes 300mg Take 300 Un jigna 300 mg 2-10 mg by ity of capsule 11:15: mouth [place] every Medical evening. Branch metformin 2022-0 Yes 500mg Take 500 Uni vers ER 500 mg 2-10 mg by ity of 24 hr 11:15: mouth [place] tablet 02 daily with Medical breakfast. Branch aspirin 81 2022-0 Yes 81mg Take 81 mg U nivers mg chewable 2-10 by mouth ity of tablet 11:15: in the [place] morning. Medical Branch metoprolol 2022-0 Yes 25mg Take 25 mg U nivers tartrate 50 2-10 by mouth ity of mg tablet 11:15: in the [place] morning Medical and 25 mg Branch in the evening. pravastatin 2022-0 Yes 80mg Take 80 mg Univers 80 mg 2-10 by mouth ity of tablet 11:15: at [place] [address] bedtime. Medical Branch HYDROcodone 2022-0 Yes 1{tbl} Take 1 Un jigna -acetaminop 2-10 tablet by ity of hen 5-325 11:15: mouth in [facility] s mg tablet 02 the Medical morning Branch and 1 tablet in the evening. amiodarone 2022-0 Yes 200mg Take 200 Un jigna 200 mg 2-10 mg by ity of tablet 11:15: mouth in [place] the Medical morning Branch and 200 mg in the evening. apixaban 5 2022-0 Yes 5mg Take 5 mg Un jigna mg tablet 2-10 by mouth ity of 11:15: in the [place] morning Medical and 5 mg Branch in the evening. finasteride 2022-0 Yes 5mg Take 5 mg U nivers 5 mg tablet 2-10 by mouth ity of 11:15: in the [place] morning. Medical Branch gabapentin 2022-0 Yes 300mg Take 300 Un jigna 300 mg 2-10 mg by ity of capsule 11:15: mouth [place] 02 every Medical evening. Branch metformin 2022-0 Yes 500mg Take 500 Uni vers ER 500 mg 2-10 mg by ity of 24 hr 11:15: mouth [place] tablet 02 daily with Medical breakfast. Branch aspirin 81 2022-0 Yes 81mg Take 81 mg U nivers mg chewable 2-10 by mouth ity of tablet 11:15: in the [place] [address] morning. Medical Branch metoprolol 2022-0 Yes 25mg Take 25 mg U nivers tartrate 50 2-10 by mouth ity of mg tablet 11:15: in the [place] [address] morning Medical and 25 mg Branch in the evening. pravastatin 2022-0 Yes 80mg Take 80 mg Univers 80 mg 2-10 by mouth ity of tablet 11:15: at [place] [address] bedtime. Medical Branch HYDROcodone 2022-0 Yes 1{tbl} Take 1 Un jigna -acetaminop 2-10 tablet by ity of hen 5-325 11:15: mouth in [facility] s mg tablet 02 the Medical morning Branch and 1 tablet in the evening. amiodarone 2022-0 Yes 200mg Take 200 Un jigna 200 mg 2-10 mg by ity of tablet 11:15: mouth in [place] 02 the Medical morning Branch and 200 mg in the evening. apixaban 5 2022-0 Yes 5mg Take 5 mg Un jigna mg tablet 2-10 by mouth ity of 11:15: in the [place] [address] morning Medical and 5 mg Branch in the evening. finasteride 2022-0 Yes 5mg Take 5 mg U nivers 5 mg tablet 2-10 by mouth ity of 11:15: in the [place] [address] morning. Medical Branch gabapentin 2022-0 Yes 300mg Take 300 Un jigna 300 mg 2-10 mg by ity of capsule 11:15: mouth [place] 02 every Medical evening. Branch metformin 2022-0 Yes 500mg Take 500 Uni vers ER 500 mg 2-10 mg by ity of 24 hr 11:15: mouth [place] tablet 02 daily with Medical breakfast. Branch aspirin 81 2022-0 Yes 81mg Take 81 mg U nivers mg chewable 2-10 by mouth ity of tablet 11:15: in the [place] [address] morning. Medical Branch metoprolol 2022-0 Yes 25mg Take 25 mg U nivers tartrate 50 2-10 by mouth ity of mg tablet 11:15: in the [place] [address] morning Medical and 25 mg Branch in the evening. pravastatin 2022-0 Yes 80mg Take 80 mg Univers 80 mg 2-10 by mouth ity of tablet 11:15: at [place] [address] bedtime. Medical Branch HYDROcodone 2022-0 Yes 1{tbl} Take 1 Un jigna -acetaminop 2-10 tablet by ity of hen 5-325 11:15: mouth in [facility] s mg tablet 02 the Medical morning Branch and 1 tablet in the evening. amiodarone 2022-0 Yes 200mg Take 200 Un jigna 200 mg 2-10 mg by ity of tablet 11:15: mouth in [place] 02 the Medical morning Branch and 200 mg in the evening. apixaban 5 2022-0 Yes 5mg Take 5 mg Un jigna mg tablet 2-10 by mouth ity of 11:15: in the [place] morning Medical and 5 mg Branch in the evening. finasteride 2022-0 Yes 5mg Take 5 mg U nivers 5 mg tablet 2-10 by mouth ity of 11:15: in the [place] morning. Medical Branch gabapentin 2022-0 Yes 300mg Take 300 Un jigna 300 mg 2-10 mg by ity of capsule 11:15: mouth [place] 02 every Medical evening. Branch metformin 2022-0 Yes 500mg Take 500 Uni vers ER 500 mg 2-10 mg by ity of 24 hr 11:15: mouth [place] tablet 02 daily with Medical breakfast. Branch aspirin 81 2022-0 Yes 81mg Take 81 mg U nivers mg chewable 2-10 by mouth ity of tablet 11:15: in the [place] [address] morning. Medical Branch metoprolol 2022-0 Yes 25mg Take 25 mg U nivers tartrate 50 2-10 by mouth ity of mg tablet 11:15: in the [place] [address] morning Medical and 25 mg Branch in the evening. pravastatin 2022-0 Yes 80mg Take 80 mg Univers 80 mg 2-10 by mouth ity of tablet 11:15: at [place] [address] bedtime. Medical Branch HYDROcodone 2022-0 Yes 1{tbl} Take 1 Un jigna -acetaminop 2-10 tablet by ity of hen 5-325 11:15: mouth in [facility] s mg tablet 02 the Medical morning Branch and 1 tablet in the evening. amiodarone 2022-0 Yes 200mg Take 200 Un jigna 200 mg 2-10 mg by ity of tablet 11:15: mouth in [place] the Medical morning Branch and 200 mg in the evening. apixaban 5 2022-0 Yes 5mg Take 5 mg Un jigna mg tablet 2-10 by mouth ity of 11:15: in the [place] morning Medical and 5 mg Branch in the evening. finasteride 3-0 Yes 5mg Take 5 mg U nivers 5 mg tablet 2-10 by mouth ity of 11:15: in the [place] morning. Medical Branch gabapentin 3-0 Yes 300mg Take 300 Un jigna 300 mg 2-10 mg by ity of capsule 11:15: mouth [place] every Medical evening. Branch metformin 2022-0 Yes 500mg Take 500 Uni vers ER 500 mg 2-10 mg by ity of 24 hr 11:15: mouth [facility] daily with Medical breakfast. Branch aspirin 81 2022-0 Yes 81mg Take 81 mg U nivers mg chewable 2-10 by mouth ity of tablet 11:15: in the [place] [address] morning. Medical Branch metoprolol 2022-0 Yes 25mg Take 25 mg U nivers tartrate 50 2-10 by mouth ity of mg tablet 11:15: in the [place] [address] morning Medical and 25 mg Branch in the evening. pravastatin 2022-0 Yes 80mg Take 80 mg Univers 80 mg 2-10 by mouth ity of tablet 11:15: at [place] [address] bedtime. Medical Branch HYDROcodone 2022-0 Yes 1{tbl} Take 1 Un jigna -acetaminop 2-10 tablet by ity of hen 5-325 11:15: mouth in [facility] s mg tablet 02 the Medical morning Branch and 1 tablet in the evening. amiodarone 2022-0 Yes 200mg Take 200 Un jigna 200 mg 2-10 mg by ity of tablet 11:15: mouth in [place] 02 the Medical morning Branch and 200 mg in the evening. apixaban 5 2022-0 Yes 5mg Take 5 mg Un jigna mg tablet 2-10 by mouth ity of 11:15: in the [place] [address] morning Medical and 5 mg Branch in the evening. finasteride 3-0 Yes 5mg Take 5 mg U nivers 5 mg tablet 2-10 by mouth ity of 11:15: in the [place] [address] morning. Medical Branch gabapentin 3-0 Yes 300mg Take 300 Un jigna 300 mg 2-10 mg by ity of capsule 11:15: mouth [place] every Medical evening. Branch metformin 2022-0 Yes 500mg Take 500 Uni vers ER 500 mg 2-10 mg by ity of 24 hr 11:15: mouth [place] tablet 02 daily with Medical breakfast. Branch aspirin 81 2022-0 Yes 81mg Take 81 mg U nivers mg chewable 2-10 by mouth ity of tablet 11:15: in the [place] morning. Medical Branch metoprolol 2022-0 Yes 25mg Take 25 mg U nivers tartrate 50 2-10 by mouth ity of mg tablet 11:15: in the [place] morning Medical and 25 mg Branch in the evening. pravastatin 2022-0 Yes 80mg Take 80 mg Univers 80 mg 2-10 by mouth ity of tablet 11:15: at [place] [address] bedtime. Medical Branch HYDROcodone 2022-0 Yes 1{tbl} Take 1 Un jigna -acetaminop 2-10 tablet by ity of hen 5-325 11:15: mouth in [facility] s mg tablet 02 the Medical morning Branch and 1 tablet in the evening. amiodarone 2022-0 Yes 200mg Take 200 Un jigna 200 mg 2-10 mg by ity of tablet 11:15: mouth in [place] the Medical morning Branch and 200 mg in the evening. apixaban 5 2022-0 Yes 5mg Take 5 mg Un jigna mg tablet 2-10 by mouth ity of 11:15: in the [place] morning Medical and 5 mg Branch in the evening. finasteride 2022-0 Yes 5mg Take 5 mg U nivers 5 mg tablet 2-10 by mouth ity of 11:15: in the [place] morning. Medical Branch gabapentin 2022-0 Yes 300mg Take 300 Un jigna 300 mg 2-10 mg by ity of capsule 11:15: mouth [place] 02 every Medical evening. Branch metformin 2022-0 Yes 500mg Take 500 Uni vers ER 500 mg 2-10 mg by ity of 24 hr 11:15: mouth [place] tablet 02 daily with Medical breakfast. Branch aspirin 81 2022-0 Yes 81mg Take 81 mg U nivers mg chewable 2-10 by mouth ity of tablet 11:15: in the [place] morning. Medical Branch metoprolol 2022-0 Yes 25mg Take 25 mg U nivers tartrate 50 2-10 by mouth ity of mg tablet 11:15: in the [place] morning Medical and 25 mg Branch in the evening. pravastatin 2022-0 Yes 80mg Take 80 mg [facility] 80 mg 2-10 by mouth ity of tablet 11:15: at [place] [address] bedtime. Medical Branch HYDROcodone 2022-0 Yes 1{tbl} Take 1 Un jigna -acetaminop 2-10 tablet by ity of hen 5-325 11:15: mouth in [facility] s mg tablet 02 the Medical morning Branch and 1 tablet in the evening. amiodarone 2022-0 Yes 200mg Take 200 Un jigna 200 mg 2-10 mg by ity of tablet 11:15: mouth in [place] the Medical morning Branch and 200 mg in the evening. apixaban 5 2022-0 Yes 5mg Take 5 mg Un jigna mg tablet 2-10 by mouth ity of 11:15: in the [place] morning Medical and 5 mg Branch in the evening. finasteride 2022-0 Yes 5mg Take 5 mg U nivers 5 mg tablet 2-10 by mouth ity of 11:15: in the [place] [address] morning. Medical Branch gabapentin 2022-0 Yes 300mg Take 300 Un jigna 300 mg 2-10 mg by ity of capsule 11:15: mouth [place] 02 every Medical evening. Branch metformin 2022-0 Yes 500mg Take 500 Uni vers ER 500 mg 2-10 mg by ity of 24 hr 11:15: mouth [place] tablet 02 daily with Medical breakfast. Branch aspirin 81 2022-0 Yes 81mg Take 81 mg U nivers mg chewable 2-10 by mouth ity of tablet 11:15: in the [place] morning. Medical Branch metoprolol 2022-0 Yes 25mg Take 25 mg U nivers tartrate 50 2-10 by mouth ity of mg tablet 11:15: in the [place] [address] morning Medical and 25 mg Branch in the evening. pravastatin 2022-0 Yes 80mg Take 80 mg [facility] 80 mg 2-10 by mouth ity of tablet 11:15: at [place] [address] bedtime. Medical Branch HYDROcodone 2022-0 Yes 1{tbl} Take 1 Un jigna -acetaminop 2-10 tablet by ity of hen 5-325 11:15: mouth in [facility] s mg tablet 02 the Medical morning Branch and 1 tablet in the evening. amiodarone 3-0 Yes 200mg Take 200 Un jigna 200 mg 2-10 mg by ity of tablet 11:15: mouth in [place] 02 the Medical morning Branch and 200 mg in the evening. apixaban 5 2022-0 Yes 5mg Take 5 mg Un jigna mg tablet 2-10 by mouth ity of 11:15: in the [place] morning Medical and 5 mg Branch in the evening. finasteride 3-0 Yes 5mg Take 5 mg U nivers 5 mg tablet 2-10 by mouth ity of 11:15: in the [place] morning. Medical Branch gabapentin 2022-0 Yes 300mg Take 300 Un jigna 300 mg 2-10 mg by ity of capsule 11:15: mouth [place] 02 every Medical evening. Branch metformin 2022-0 Yes 500mg Take 500 Uni vers ER 500 mg 2-10 mg by ity of 24 hr 11:15: mouth [place] tablet 02 daily with Medical breakfast. Branch aspirin 81 2022-0 Yes 81mg Take 81 mg U nivers mg chewable 2-10 by mouth ity of tablet 11:15: in the [place] [address] morning. Medical Branch metoprolol 2022-0 Yes 25mg Take 25 mg U nivers tartrate 50 2-10 by mouth ity of mg tablet 11:15: in the [place] [address] morning Medical and 25 mg Branch in the evening. pravastatin 2022-0 Yes 80mg Take 80 mg [facility] 80 mg 2-10 by mouth ity of tablet 11:15: at [place] [address] bedtime. Medical Branch HYDROcodone 2022-0 Yes 1{tbl} Take 1 Un jigna -acetaminop 2-10 tablet by ity of hen 5-325 11:15: mouth in [facility] s mg tablet 02 the Medical morning Branch and 1 tablet in the evening. amiodarone 2022-0 Yes 200mg Take 200 Un jigna 200 mg 2-10 mg by ity of tablet 11:15: mouth in [place] 02 the Medical morning Branch and 200 mg in the evening. apixaban 5 2022-0 Yes 5mg Take 5 mg Un jigna mg tablet 2-10 by mouth ity of 11:15: in the [place] [address] morning Medical and 5 mg Branch in the evening. finasteride 3-0 Yes 5mg Take 5 mg U nivers 5 mg tablet 2-10 by mouth ity of 11:15: in the [place] morning. Medical Branch gabapentin 2022-0 Yes 300mg Take 300 Un jigna 300 mg 2-10 mg by ity of capsule 11:15: mouth [place] 02 every Medical evening. Branch metformin 2022-0 Yes 500mg Take 500 Uni vers ER 500 mg 2-10 mg by ity of 24 hr 11:15: mouth [place] tablet 02 daily with Medical breakfast. Branch aspirin 81 2022-0 Yes 81mg Take 81 mg U nivers mg chewable 2-10 by mouth ity of tablet 11:15: in the [place] morning. Medical Branch metoprolol 2022-0 Yes 25mg Take 25 mg U nivers tartrate 50 2-10 by mouth ity of mg tablet 11:15: in the [place] morning Medical and 25 mg Branch in the evening. pravastatin 2022-0 Yes 80mg Take 80 mg [facility] 80 mg 2-10 by mouth ity of tablet 11:15: at [place] [address] bedtime. Medical Branch HYDROcodone 2022-0 Yes 1{tbl} Take 1 Un jigna -acetaminop 2-10 tablet by ity of hen 5-325 11:15: mouth in [facility] s mg tablet 02 the Medical morning Branch and 1 tablet in the evening. amiodarone 2022-0 Yes 200mg Take 200 Un jigna 200 mg 2-10 mg by ity of tablet 11:15: mouth in [place] 02 the Medical morning Branch and 200 mg in the evening. apixaban 5 2022-0 Yes 5mg Take 5 mg Un jigna mg tablet 2-10 by mouth ity of 11:15: in the [place] morning Medical and 5 mg Branch in the evening. finasteride 2022-0 Yes 5mg Take 5 mg U nivers 5 mg tablet 2-10 by mouth ity of 11:15: in the [place] morning. Medical Branch gabapentin 2022-0 Yes 300mg Take 300 Un jigna 300 mg 2-10 mg by ity of capsule 11:15: mouth [place] 02 every Medical evening. Branch metformin 2022-0 Yes 500mg Take 500 Uni vers ER 500 mg 2-10 mg by ity of 24 hr 11:15: mouth [place] tablet 02 daily with Medical breakfast. Branch aspirin 81 2022-0 Yes 81mg Take 81 mg U nivers mg chewable 2-10 by mouth ity of tablet 11:15: in the [place] morning. Medical Branch metoprolol 2022-0 Yes 25mg Take 25 mg U nivers tartrate 50 2-10 by mouth ity of mg tablet 11:15: in the [place] morning Medical and 25 mg Branch in the evening. pravastatin 2022-0 Yes 80mg Take 80 mg [facility] 80 mg 2-10 by mouth ity of tablet 11:15: at [place] [address] bedtime. Medical Branch HYDROcodone 2022-0 Yes 1{tbl} Take 1 Un jigna -acetaminop 2-10 tablet by ity of hen 5-325 11:15: mouth in [facility] s mg tablet 02 the Medical morning Branch and 1 tablet in the evening. amiodarone 2022-0 Yes 200mg Take 200 Un jigna 200 mg 2-10 mg by ity of tablet 11:15: mouth in [place] 02 the Medical morning Branch and 200 mg in the evening. apixaban 5 2022-0 Yes 5mg Take 5 mg Un jigna mg tablet 2-10 by mouth ity of 11:15: in the [place] morning Medical and 5 mg Branch in the evening. finasteride 2022-0 Yes 5mg Take 5 mg U nivers 5 mg tablet 2-10 by mouth ity of 11:15: in the [place] morning. Medical Branch gabapentin 2022-0 Yes 300mg Take 300 Un jigna 300 mg 2-10 mg by ity of capsule 11:15: mouth [place] 02 every Medical evening. Branch metformin 2022-0 Yes 500mg Take 500 Uni vers ER 500 mg 2-10 mg by ity of 24 hr 11:15: mouth [place] tablet 02 daily with Medical breakfast. Branch aspirin 81 2022-0 Yes 81mg Take 81 mg U nivers mg chewable 2-10 by mouth ity of tablet 11:15: in the [place] morning. Medical Branch metoprolol 2022-0 Yes 25mg Take 25 mg U nivers tartrate 50 2-10 by mouth ity of mg tablet 11:15: in the [place] morning Medical and 25 mg Branch in the evening. pravastatin 2022-0 Yes 80mg Take 80 mg [facility] 80 mg 2-10 by mouth ity of tablet 11:15: at [place] [address] bedtime. Medical Branch HYDROcodone 2022-0 Yes 1{tbl} Take 1 Un jigna -acetaminop 2-10 tablet by ity of hen 5-325 11:15: mouth in [place] s mg tablet 02 the Medical morning Branch and 1 tablet in the evening. amiodarone 2022-0 Yes 200mg Take 200 Un jigna 200 mg 2-10 mg by ity of tablet 11:15: mouth in [place] 02 the Medical morning Branch and 200 mg in the evening. apixaban 5 2022-0 Yes 5mg Take 5 mg Un jigna mg tablet 2-10 by mouth ity of 11:15: in the [place] morning Medical and 5 mg Branch in the evening. finasteride 2022-0 Yes 5mg Take 5 mg U nivers 5 mg tablet 2-10 by mouth ity of 11:15: in the [place] morning. Medical Branch gabapentin 2022-0 Yes 300mg Take 300 Un jigna 300 mg 2-10 mg by ity of capsule 11:15: mouth [place] 02 every Medical evening. Branch metformin 2022-0 Yes 500mg Take 500 Uni vers ER 500 mg 2-10 mg by ity of 24 hr 11:15: mouth [place] tablet 02 daily with Medical breakfast. Branch aspirin 81 2022-0 Yes 81mg Take 81 mg U nivers mg chewable 2-10 by mouth ity of tablet 11:15: in the [place] morning. Medical Branch metoprolol 2022-0 Yes 25mg Take 25 mg U nivers tartrate 50 2-10 by mouth ity of mg tablet 11:15: in the [place] morning Medical and 25 mg Branch in the evening. pravastatin 2022-0 Yes 80mg Take 80 mg [facility] 80 mg 2-10 by mouth ity of tablet 11:15: at [place] [address] bedtime. Medical Branch HYDROcodone 2022-0 Yes 1{tbl} Take 1 Un jigna -acetaminop 2-10 tablet by ity of hen 5-325 11:15: mouth in [facility] s mg tablet 02 the Medical morning Branch and 1 tablet in the evening. amiodarone 3-0 Yes 200mg Take 200 Un jigna 200 mg 2-10 mg by ity of tablet 11:15: mouth in [place] 02 the Medical morning Branch and 200 mg in the evening. apixaban 5 2022-0 Yes 5mg Take 5 mg Un jigna mg tablet 2-10 by mouth ity of 11:15: in the [place] [address] morning Medical and 5 mg Branch in the evening. finasteride 3-0 Yes 5mg Take 5 mg U nivers 5 mg tablet 2-10 by mouth ity of 11:15: in the [place] [address] morning. Medical Branch gabapentin 2022-0 Yes 300mg Take 300 Un jigna 300 mg 2-10 mg by ity of capsule 11:15: mouth [place] 02 every Medical evening. Branch metformin 2022-0 Yes 500mg Take 500 Uni vers ER 500 mg 2-10 mg by ity of 24 hr 11:15: mouth [place] tablet 02 daily with Medical breakfast. Branch aspirin 81 2022-0 Yes 81mg Take 81 mg U nivers mg chewable 2-10 by mouth ity of tablet 11:15: in the [place] [address] morning. Medical Branch metoprolol 2022-0 Yes 25mg Take 25 mg U nivers tartrate 50 1-26 by mouth ity of mg tablet 12:14: in the [place] [address] morning Medical and 25 mg Branch in the evening. pravastatin 2022-0 Yes 80mg Take 80 mg [facility] 80 mg 1-26 by mouth ity of tablet 12:14: at [place] [address] bedtime. Medical Branch HYDROcodone 2022-0 Yes 1{tbl} Take 1 Un jigna -acetaminop 1-26 tablet by ity of hen 5-325 12:14: mouth in [facility] s mg tablet 34 the Medical morning Branch and 1 tablet in the evening. amiodarone 2022-0 Yes 200mg Take 200 Un jigna 200 mg 1-26 mg by ity of tablet 12:14: mouth in [place] [address] the Medical morning Branch and 200 mg in the evening. apixaban 5 2022-0 Yes 5mg Take 5 mg Un jigna mg tablet 1-26 by mouth ity of 12:14: in the [place] [address] morning Medical and 5 mg Branch in the evening. finasteride 2022-0 Yes 5mg Take 5 mg U nivers 5 mg tablet 1-26 by mouth ity of 12:14: in the [place] [address] morning. Medical Branch gabapentin 2022-0 Yes 300mg Take 300 Un jigna 300 mg 1-26 mg by ity of capsule 12:14: mouth [place] 34 every Medical evening. Branch metformin 2022-0 Yes 500mg Take 500 Uni vers ER 500 mg 1-26 mg by ity of 24 hr 12:14: mouth [place] tablet 34 daily with Medical breakfast. Branch aspirin 81 2022-0 Yes 81mg Take 81 mg U nivers mg chewable 1-26 by mouth ity of tablet 12:14: in the [place] [address] morning. Medical Branch metoprolol 2022-0 Yes 25mg Take 25 mg U nivers tartrate 50 1-26 by mouth ity of mg tablet 12:14: in the [place] [address] morning Medical and 25 mg Branch in the evening. pravastatin 2022-0 Yes 80mg Take 80 mg [facility] 80 mg 1-26 by mouth ity of tablet 12:14: at [place] [address] bedtime. Medical Branch HYDROcodone 2022-0 Yes 1{tbl} Take 1 Un jigna -acetaminop 1-26 tablet by ity of hen 5-325 12:14: mouth in [facility] s mg tablet 34 the Medical morning Branch and 1 tablet in the evening. amiodarone 2022-0 Yes 200mg Take 200 Un jigna 200 mg 1-26 mg by ity of tablet 12:14: mouth in [place] [address] the Medical morning Branch and 200 mg in the evening. apixaban 5 2022-0 Yes 5mg Take 5 mg Un jigna mg tablet 1-26 by mouth ity of 12:14: in the [place] [address] morning Medical and 5 mg Branch in the evening. finasteride 2022-0 Yes 5mg Take 5 mg U nivers 5 mg tablet 1-26 by mouth ity of 12:14: in the [place] [address] morning. Medical Branch gabapentin 2022-0 Yes 300mg Take 300 Un jigna 300 mg 1-26 mg by ity of capsule 12:14: mouth [place] [address] every Medical evening. Branch metformin 2022-0 Yes 500mg Take 500 Uni vers ER 500 mg 1-26 mg by ity of 24 hr 12:14: mouth [place] tablet 34 daily with Medical breakfast. Branch aspirin 81 2022-0 Yes 81mg Take 81 mg U nivers mg chewable 1-26 by mouth ity of tablet 12:14: in the [place] [address] morning. Medical Branch metoprolol 2022-0 Yes 25mg Take 25 mg U nivers tartrate 50 1-26 by mouth ity of mg tablet 12:14: in the [place] [address] morning Medical and 25 mg Branch in the evening. pravastatin 2022-0 Yes 80mg Take 80 mg [facility] 80 mg 1-26 by mouth ity of tablet 12:14: at [place] [address] bedtime. Medical Branch HYDROcodone 3-0 Yes 1{tbl} Take 1 Un jigna -acetaminop 1-26 tablet by ity of hen 5-325 12:14: mouth in [facility] [place] mg tablet 34 the Medical morning Branch and 1 tablet in the evening. amiodarone 3-0 Yes 200mg Take 200 Un jigna 200 mg 1-26 mg by ity of tablet 12:14: mouth in [place] [address] the Medical morning Branch and 200 mg in the evening. apixaban 5 3-0 Yes 5mg Take 5 mg Un jigna mg tablet 1-26 by mouth ity of 12:14: in the [place] [address] morning Medical and 5 mg Branch in the evening. finasteride 3-0 Yes 5mg Take 5 mg U nivers 5 mg tablet 1-26 by mouth ity of 12:14: in the [place] [address] morning. Medical Branch gabapentin 2022-0 Yes 300mg Take 300 Un jigna 300 mg 1-26 mg by ity of capsule 12:14: mouth [place] [address] every Medical evening. Branch metformin 2022-0 Yes 500mg Take 500 Uni vers ER 500 mg 1-26 mg by ity of 24 hr 12:14: mouth [place] tablet 34 daily with Medical breakfast. Branch aspirin 81 2022-0 Yes 81mg Take 81 mg U nivers mg chewable 1-26 by mouth ity of tablet 12:14: in the [place] [address] morning. Medical Branch metoprolol 2022-0 Yes 25mg Take 25 mg U nivers tartrate 50 1-26 by mouth ity of mg tablet 12:14: in the [place] [address] morning Medical and 25 mg Branch in the evening. pravastatin 3-0 Yes 80mg Take 80 mg [facility] 80 mg 1-26 by mouth ity of tablet 12:14: at [place] [address] bedtime. Medical Branch metoprolol 3-0 Yes 25mg Take 25 mg U nivers tartrate 50 1-26 by mouth ity of mg tablet 12:14: in the [place] [address] morning Medical and 25 mg Branch in the evening. pravastatin 2023-0 Yes 80mg Take 80 mg [facility] 80 mg 1-26 by mouth ity of tablet 12:14: at [place] [address] bedtime. Medical Branch HYDROcodone 3-0 Yes 1{tbl} Take 1 Un jigna -acetaminop 1-26 tablet by ity of hen 5-325 12:14: mouth in [facility] s mg tablet 34 the Medical morning Branch and 1 tablet in the evening. amiodarone 2022-0 Yes 200mg Take 200 Un jigna 200 mg 1-26 mg by ity of tablet 12:14: mouth in [place] [address] the Medical morning Branch and 200 mg in the evening. apixaban 5 2022-0 Yes 5mg Take 5 mg Un jigna mg tablet 1-26 by mouth ity of 12:14: in the [place] [address] morning Medical and 5 mg Branch in the evening. finasteride 2022-0 Yes 5mg Take 5 mg U nivers 5 mg tablet 1-26 by mouth ity of 12:14: in the [place] [address] morning. Medical Branch gabapentin 2022-0 Yes 300mg Take 300 Un jigna 300 mg 1-26 mg by ity of capsule 12:14: mouth [place] [address] every Medical evening. Branch metformin 2022-0 Yes 500mg Take 500 Uni vers ER 500 mg 1-26 mg by ity of 24 hr 12:14: mouth [place] [address] daily with Medical breakfast. Branch aspirin 81 2022-0 Yes 81mg Take 81 mg U nivers mg chewable 1-26 by mouth ity of tablet 12:14: in the [place] [address] morning. Medical Branch metoprolol 2022-0 Yes 25mg Take 25 mg U nivers tartrate 50 1-26 by mouth ity of mg tablet 12:14: in the [place] [address] morning Medical and 25 mg Branch in the evening. pravastatin 2022-0 Yes 80mg Take 80 mg [facility] 80 mg 1-26 by mouth ity of tablet 12:14: at [place] [address] bedtime. Medical Branch HYDROcodone 2022-0 Yes 1{tbl} Take 1 Un jigna -acetaminop 1-26 tablet by ity of hen 5-325 12:14: mouth in [facility] s mg tablet 34 the Medical morning Branch and 1 tablet in the evening. amiodarone 2022-0 Yes 200mg Take 200 Un jigna 200 mg 1-26 mg by ity of tablet 12:14: mouth in [place] [address] the Medical morning Branch and 200 mg in the evening. apixaban 5 2022-0 Yes 5mg Take 5 mg Un jigna mg tablet 1-26 by mouth ity of 12:14: in the [place] [address] morning Medical and 5 mg Branch in the evening. finasteride 2022-0 Yes 5mg Take 5 mg U nivers 5 mg tablet 1-26 by mouth ity of 12:14: in the [place] [address] morning. Medical Branch gabapentin 2022-0 Yes 300mg Take 300 Un jigna 300 mg 1-26 mg by ity of capsule 12:14: mouth [place] 34 every Medical evening. Branch metformin 2022-0 Yes 500mg Take 500 Uni vers ER 500 mg 1-26 mg by ity of 24 hr 12:14: mouth [place] tablet 34 daily with Medical breakfast. Branch aspirin 81 2022-0 Yes 81mg Take 81 mg U nivers mg chewable 1-26 by mouth ity of tablet 12:14: in the [place] [address] morning. Medical Branch metoprolol 2022-0 Yes 25mg Take 25 mg U nivers tartrate 50 1-26 by mouth ity of mg tablet 12:14: in the [place] [address] morning Medical and 25 mg Branch in the evening. pravastatin 2022-0 Yes 80mg Take 80 mg [facility] 80 mg 1-26 by mouth ity of tablet 12:14: at [place] [address] bedtime. Medical Branch HYDROcodone 2022-0 Yes 1{tbl} Take 1 Un jigna -acetaminop 1-26 tablet by ity of hen 5-325 12:14: mouth in [facility] s mg tablet 34 the Medical morning Branch and 1 tablet in the evening. amiodarone 2022-0 Yes 200mg Take 200 Un jigna 200 mg 1-26 mg by ity of tablet 12:14: mouth in [place] [address] the Medical morning Branch and 200 mg in the evening. apixaban 5 2022-0 Yes 5mg Take 5 mg Un jigna mg tablet 1-26 by mouth ity of 12:14: in the [place] [address] morning Medical and 5 mg Branch in the evening. finasteride 2022-0 Yes 5mg Take 5 mg U nivers 5 mg tablet 1-26 by mouth ity of 12:14: in the [place] [address] morning. Medical Branch gabapentin 2022-0 Yes 300mg Take 300 Un jigna 300 mg 1-26 mg by ity of capsule 12:14: mouth [place] 34 every Medical evening. Branch metformin 2022-0 Yes 500mg Take 500 Uni vers ER 500 mg 1-26 mg by ity of 24 hr 12:14: mouth [place] tablet 34 daily with Medical breakfast. Branch aspirin 81 2022-0 Yes 81mg Take 81 mg U nivers mg chewable 1-26 by mouth ity of tablet 12:14: in the [place] [address] morning. Medical Branch metoprolol 2022-0 Yes 25mg Take 25 mg U nivers tartrate 50 1-26 by mouth ity of mg tablet 12:14: in the [place] [address] morning Medical and 25 mg Branch in the evening. pravastatin 2022-0 Yes 80mg Take 80 mg [facility] 80 mg 1-26 by mouth ity of tablet 12:14: at [place] [address] bedtime. Medical Branch HYDROcodone 2022-0 Yes 1{tbl} Take 1 Un jigna -acetaminop 1-26 tablet by ity of hen 5-325 12:14: mouth in [facility] s mg tablet 34 the Medical morning Branch and 1 tablet in the evening. amiodarone 2022-0 Yes 200mg Take 200 Un jigna 200 mg 1-26 mg by ity of tablet 12:14: mouth in [place] [address] the Medical morning Branch and 200 mg in the evening. apixaban 5 2022-0 Yes 5mg Take 5 mg Un jigna mg tablet 1-26 by mouth ity of 12:14: in the [place] [address] morning Medical and 5 mg Branch in the evening. finasteride 2022-0 Yes 5mg Take 5 mg U nivers 5 mg tablet 1-26 by mouth ity of 12:14: in the [place] [address] morning. Medical Branch gabapentin 2022-0 Yes 300mg Take 300 Un jigna 300 mg 1-26 mg by ity of capsule 12:14: mouth [place] [address] every Medical evening. Branch metformin 2022-0 Yes 500mg Take 500 Uni vers ER 500 mg 1-26 mg by ity of 24 hr 12:14: mouth [place] tablet 34 daily with Medical breakfast. Branch aspirin 81 2022-0 Yes 81mg Take 81 mg U nivers mg chewable 1-26 by mouth ity of tablet 12:14: in the [place] [address] morning. Medical Branch metoprolol 2022-0 Yes 25mg Take 25 mg U nivers tartrate 50 1-26 by mouth ity of mg tablet 12:14: in the [place] [address] morning Medical and 25 mg Branch in the evening. pravastatin 2022-0 Yes 80mg Take 80 mg [facility] 80 mg 1-26 by mouth ity of tablet 12:14: at [place] [address] bedtime. Medical Branch HYDROcodone 2022-0 Yes 1{tbl} Take 1 Un jigna -acetaminop 1-26 tablet by ity of hen 5-325 12:14: mouth in [place] s mg tablet 34 the Medical morning Branch and 1 tablet in the evening. amiodarone 2022-0 Yes 200mg Take 200 Un jigna 200 mg 1-26 mg by ity of tablet 12:14: mouth in [place] [address] the Medical morning Branch and 200 mg in the evening. apixaban 5 2022-0 Yes 5mg Take 5 mg Un jigna mg tablet 1-26 by mouth ity of 12:14: in the [place] [address] morning Medical and 5 mg Branch in the evening. finasteride 2022-0 Yes 5mg Take 5 mg U nivers 5 mg tablet 1-26 by mouth ity of 12:14: in the [place] [address] morning. Medical Branch gabapentin 2022-0 Yes 300mg Take 300 Un jigna 300 mg 1-26 mg by ity of capsule 12:14: mouth [place] [address] every Medical evening. Branch metformin 2022-0 Yes 500mg Take 500 Uni vers ER 500 mg 1-26 mg by ity of 24 hr 12:14: mouth [place] tablet 34 daily with Medical breakfast. Branch aspirin 81 2022-0 Yes 81mg Take 81 mg U nivers mg chewable 1-26 by mouth ity of tablet 12:14: in the [place] [address] morning. Medical Branch metoprolol 2022-0 Yes 25mg Take 25 mg U nivers tartrate 50 1-26 by mouth ity of mg tablet 12:14: in the [place] [address] morning Medical and 25 mg Branch in the evening. pravastatin 2022-0 Yes 80mg Take 80 mg [facility] 80 mg 1-26 by mouth ity of tablet 12:14: at [place] [address] bedtime. Medical Branch HYDROcodone 2022-0 Yes 1{tbl} Take 1 Un jigna -acetaminop 1-26 tablet by ity of hen 5-325 12:14: mouth in [facility] s mg tablet 34 the Medical morning Branch and 1 tablet in the evening. amiodarone 2022-0 Yes 200mg Take 200 Un jigna 200 mg 1-26 mg by ity of tablet 12:14: mouth in [place] [address] the Medical morning Branch and 200 mg in the evening. apixaban 5 2022-0 Yes 5mg Take 5 mg Un jigna mg tablet 1-26 by mouth ity of 12:14: in the [place] [address] morning Medical and 5 mg Branch in the evening. finasteride 2022-0 Yes 5mg Take 5 mg U nivers 5 mg tablet 1-26 by mouth ity of 12:14: in the [place] [address] morning. Medical Branch gabapentin 2022-0 Yes 300mg Take 300 Un jigna 300 mg 1-26 mg by ity of capsule 12:14: mouth [place] [address] every Medical evening. Branch metformin 2022-0 Yes 500mg Take 500 Uni vers ER 500 mg 1-26 mg by ity of 24 hr 12:14: mouth [place] tablet 34 daily with Medical breakfast. Branch aspirin 81 2022-0 Yes 81mg Take 81 mg U nivers mg chewable 1-26 by mouth ity of tablet 12:14: in the [place] [address] morning. Medical Branch metoprolol 2022-0 Yes 25mg Take 25 mg U nivers tartrate 50 1-26 by mouth ity of mg tablet 12:14: in the [place] [address] morning Medical and 25 mg Branch in the evening. pravastatin 2022-0 Yes 80mg Take 80 mg [facility] 80 mg 1-26 by mouth ity of tablet 12:14: at [place] [address] bedtime. Medical Branch HYDROcodone 2022-0 Yes 1{tbl} Take 1 Un jigna -acetaminop 1-26 tablet by ity of hen 5-325 12:14: mouth in [facility] s mg tablet 34 the Medical morning Branch and 1 tablet in the evening. amiodarone 2022-0 Yes 200mg Take 200 Un jigna 200 mg 1-26 mg by ity of tablet 12:14: mouth in [place] [address] the Medical morning Branch and 200 mg in the evening. apixaban 5 2022-0 Yes 5mg Take 5 mg Un jigna mg tablet 1-26 by mouth ity of 12:14: in the [place] [address] morning Medical and 5 mg Branch in the evening. finasteride 2022-0 Yes 5mg Take 5 mg U nivers 5 mg tablet 1-26 by mouth ity of 12:14: in the [place] [address] morning. Medical Branch gabapentin 2022-0 Yes 300mg Take 300 Un jigna 300 mg 1-26 mg by ity of capsule 12:14: mouth [place] [address] every Medical evening. Branch metformin 2022-0 Yes 500mg Take 500 Uni vers ER 500 mg 1-26 mg by ity of 24 hr 12:14: mouth [place] tablet 34 daily with Medical breakfast. Branch aspirin 81 2022-0 Yes 81mg Take 81 mg U nivers mg chewable 07-06 by mouth ity of tablet 12:14: in the [place] 34 morning. Medical Branch fosinopriL 3-0 2023- No 20mg Take 20 mg Univers 20 mg 07-06 by mouth ity of tablet 10:53: 00:00 daily. [place] 49 :00 Medical Branch amLODIPine 2022-0 2023- No 10mg Take 10 mg Univers 10 mg 07-06 by mouth ity of tablet 10:53: 00:00 daily. [place] 49 :00 Medical Branch fosinopriL 3-0 3- No 20mg Take 20 mg Univers 20 mg 07-06 by mouth ity of tablet 10:53: 00:00 daily. [place] 49 :00 Medical Branch amLODIPine 3-0 2023- No 10mg Take 10 mg Univers 10 mg 07-06 by mouth ity of tablet 10:53: 00:00 daily. [place] 49 :00 Medical Branch fosinopriL 3-0 2023- No 20mg Take 20 mg Univers 20 mg 07-06 by mouth ity of tablet 10:53: 00:00 daily. [place] 49 :00 Medical Branch amLODIPine 3-0 2023- No 10mg Take 10 mg Univers 10 mg 07-06 by mouth ity of tablet 10:53: 00:00 daily. [place] 49 :00 Medical Branch fosinopriL 3-0 2023- No 20mg Take 20 mg Univers 20 mg 07-06 by mouth ity of tablet 10:53: 00:00 daily. [place] 49 :00 Medical Branch amLODIPine 3-0 2023- No 10mg Take 10 mg Univers 10 mg 07-06 by mouth ity of tablet 10:53: 00:00 daily. [place] 49 :00 Medical Branch fosinopriL 3-0 2023- No 20mg Take 20 mg Univers 20 mg 07-06 by mouth ity of tablet 10:53: 00:00 daily. [place] 49 :00 Medical Branch amLODIPine 3-0 2023- No 10mg Take 10 mg Univers 10 mg 07-06 by mouth ity of tablet 10:53: 00:00 daily. [place] 49 :00 [facility] guaiFENesin Yes 100mg 100 mg, Un jigna 100 mg/5 mL 07-06 Oral, Q4H, it y of solution 02:00: First dose [place] 100 mg 00 on Sun07/05/22 at [place] 1999, Until Discontinu ed, Routine apixaban Yes 5mg 5 mg, Univers (ELIQUIS) 07-06 Oral, BID, ity of tablet 5 mg 02:00: First dose [place] 00 on Sun07/05/22 at [place] 1999, Until Discontinu ed, Routine
Indicatio ns: Non-Valvul ar Atrial Fibrillati on guaiFENesin 2022- No 100mg 100 mg, U nivers 100 mg/5 mL 07-06 Oral, Q4H, i ty of solution 02:00: 20:14 First dose [place] 100 mg 00 :37 on Sun07/05/22 at [place] [address], Until Discontinu ed, Routine apixaban 2022- No 5mg 5 mg, Univers (ELIQUIS) 07-06 Oral, BID, ity of tablet 5 mg 02:00: 20:14 First dose [place] 00 :37 on Sun07/05/22 at [place] [address], Until Discontinu ed, Routine
Indicatio ns: Non-Valvul ar Atrial Fibrillati on HYDROcodone 2022- No 1{tbl} 1 tablet, Univers -acetaminop 07-05 Oral, ONCE i ty of hen (NORCO 23:45: 23:25 NOW, 1 [place] 5) 5-325 mg 00 :00 dose, On Medi julio tablet 1 Sun [place] tablet 07/05/22 at 1745, Routine lidocaine 2022- No 1{patch 1 Patch, Univers (LIDODERM) 07-05 } Topical, ity of 5 % (700 23:30: 10:48 Administer [place] mg/patch) 00 :00 over 12 Medical patch 1 Hours, Branch Patch ONCE, 1 dose, On Sun07/05/22 at 1730, Routine HYDROcodone 2022- No 1{tbl} 1 tablet, Univers -acetaminop 07-05 Oral, ity of hen (NORCO 20:30: 21:22 ONCE, 1 [place] 5) 5-325 mg 00 :00 dose, On Medi [place] tablet 1 Sun Branch tablet 07/05/22 at 1430, Routine, PACU FENTanyl PF 2022- No 25ug 25 mcg, Un jigna (SUBLIMAZE 07-05 Slow IV ity o f (PF)) 20:25: 22:02 Push, [place] injection 57 :05 Q5MIN PRN, Medi julio 25 mcg 4 doses, Branch Starting on Sun07/05/22 at 1425, Until Sun07/05/22 at 1602, Routine, Pain (scale 4-6), PACU phenylephri 2022- No Slow IV Un jigna ne 07-05 Push, ONCE ity of (VAZCULEP) 18:40: 20:47 INTRA [place] injection 00 :42 PROCEDURE, Medi julio Starting Branch on Sun07/05/22 at 1240, Until Discontinu ed, Routine, Intra-op phenylephri 2022- No Slow IV Un jigna ne 07-05 Push, ONCE ity of (VAZCULEP) 18:40: 20:47 INTRA [place] injection 00 :42 PROCEDURE, Medi julio Starting Branch on Sun07/05/22 at 1240, Until Discontinu ed, Routine, Intra-op phenylephri 2022- No Slow IV Un jigna ne 07-05 Push, ONCE ity of (VAZCULEP) 18:40: 20:47 INTRA [place] injection 00 :42 PROCEDURE, Medi julio Starting Branch on Sun07/05/22 at 1240, Until Discontinu ed, Routine, Intra-op lidocaine Yes PRN, Univers in 07-05 Starting ity of NaCl,iso-os 18:25: on Sun [place] mo(PF) 100 00 07/05/22 at Med ical mg/10 mL (1 1225, Branch %) Until injection Discontinu syringe ed, Routine, Intra-op lidocaine 2022- No PRN, Univers in 07-05 Starting ity of NaCl,iso-os 18:25: 20:14 on Sun [place] mo(PF) 100 00 :37 07/05/22 at Med ical mg/10 mL (1 1225, Branch %) Until [place] injection 07/06/22 at syringe 1414, Routine, Intra-op remifentani 2022- No Intravenou Univers L (ULTIVA) 07-05 s, ity of injection 18:22: 20:47 CONTINUOUS [place] 00 :42 PRN, Medical Starting Branch on Sun07/05/22 at 1222, Until Discontinu ed, Routine, Intra-op remifentani 2022- No Intravenou Univers L (ULTIVA) 07-05 s, ity of injection 18:22: 20:47 CONTINUOUS [place] 00 :42 PRN, Medical Starting Branch on Sun07/05/22 at 1222, Until Discontinu ed, Routine, Intra-op remifentani 2022- No Intravenou Univers L (ULTIVA) 07-05 s, ity of injection 18:22: 20:47 CONTINUOUS [place] 00 :42 PRN, Medical Starting Branch on Sun07/05/22 at 1222, Until Discontinu ed, Routine, Intra-op rocuronium 2022- No IV Push, Un jigna (ZEMURON) 07-05 ONCE INTRA ity of injection 18:16: 20:47 PROCEDURE, [place] 00 :42 Starting Medical on Sun Branch 07/05/22 at 1216, Until Discontinu ed, Routine, Intra-op rocuronium 2022- No IV Push, Un jigna (ZEMURON) 07-05 ONCE INTRA ity of injection 18:16: 20:47 PROCEDURE, [place] 00 :42 Starting Medical on Sun Branch 07/05/22 at 1216, Until Discontinu ed, Routine, Intra-op rocuronium 2022- No IV Push, Un jigna (ZEMURON) 07-05 ONCE INTRA ity of injection 18:16: 20:47 PROCEDURE, [place] 00 :42 Starting Medical on Sun Branch 07/05/22 at 1216, Until Discontinu ed, Routine, Intra-op propofoL IV 2022- No Slow IV Un jigna infusion 07-05 Push, ity of 18:15: 20:47 CONTINUOUS [place] 00 :42 PRN, Medical Starting Branch on Sun07/05/22 at 1215, Until Discontinu ed, Routine, Intra-op propofoL IV 2022- No Slow IV Un jigna infusion 07-05 Push, ity of 18:15: 20:47 CONTINUOUS [place] 00 :42 PRN, Medical Starting Branch on Sun07/05/22 at 1215, Until Discontinu ed, Routine, Intra-op propofoL IV 2022- No Slow IV Un jigna infusion 07-05 Push, ity of 18:15: 20:47 CONTINUOUS [place] 00 :42 PRN, Medical Starting Branch on Sun07/05/22 at 1215, Until Discontinu ed, Routine, Intra-op lactated 2022- No IV Univers ringers IV 07-05 Infusion, ity of infusion 18:05: 20:47 CONTINUOUS [place] 00 :42 PRN, Medical Starting Branch on Sun07/05/22 at 1205, Until Discontinu ed, Routine, Intra-op lactated 2022- No IV Univers ringers IV 07-05 Infusion, ity of infusion 18:05: 20:47 CONTINUOUS [place] 00 :42 PRN, Medical Starting Branch on Sun07/05/22 at 1205, Until Discontinu ed, Routine, Intra-op lactated 2022- No IV Univers ringers IV 07-05 Infusion, ity of infusion 18:05: 20:47 CONTINUOUS [place] 00 :42 PRN, Medical Starting Branch on Sun07/05/22 at 1205, Until Discontinu ed, Routine, Intra-op pantoprazol Yes 40mg 40 mg, Univ ers e 07-05 Oral, ity of (PROTONIX) 15:00: DAILY, [place] EC tablet 00 First dose Medi julio 40 mg on Sun Branch 07/05/22 at 0900, Until Discontinu ed, Routine pantoprazol 2022- No 40mg 40 mg, Uni vers e 07-05 Oral, ity of (PROTONIX) 15:00: 20:14 DAILY, [place] EC tablet 00 :37 First dose Medi julio 40 mg on Sun07/05/22 at 0900, Until Discontinu ed, Routine atorvastati Yes 40mg 40 mg, Univ ers n (LIPITOR) 07-05 Oral, QHS, it y of tablet 40 03:00: First dose [place] mg 00 (after Medical last Branch modificati on) on Sun07/04/22 at 2100, Until Discontinu ed, Routine atorvastati 2022- No 40mg 40 mg, Uni vers n (LIPITOR) 07-05 Oral, QHS, i ty of tablet 40 03:00: 20:14 First dose [place] mg 00 :37 (after Medical last Branch modificati on) on Sun07/04/22 at 2100, Until Discontinu ed, Routine alum-mag No 20mL 20 mL, Univer s hydroxide-s 07-05 Oral, ity of imeth 01:00: 01:52 ONCE, 1 [place] (MAALOX 00 :00 dose, On [facility] PLUS / Sun MAG-AL 07/04/22 at PLUS) 1900, 200-200-20 Routine mg/5 mL suspension 20 mL gabapentin Yes 300mg 300 mg, Uni vers (NEURONTIN) 07-04 Oral, QPM, it y of capsule 300 23:00: First dose [place] mg 00 on Sun07/04/22 at Branch 1700, Until Discontinu ed, Routine gabapentin 2022- No 300mg 300 mg, Un jigna (NEURONTIN) 07-04 Oral, QPM, i ty of capsule 300 23:00: 20:14 First dose [place] mg 00 :37 on Sun07/04/22 at Branch 1700, Until Discontinu ed, Routine heparin 2022- No 0U/h 0-2,150 Univer s 25,000 07-04 Units/hr ity of Units/250 20:00: 12:00 (0-21.5 [place] mL 58 :00 mL/hr), IV Medical (Premixed Infusion, Bran h Bag) in TITRATE, 0.45 % NS Parameters in Admin. Instr., Starting on Sun07/04/22 at 1400, For 1 day
Ini tiate infusion at 12 units/kg/h r calculated as: 1,000 Units/hr (Maximum initial rate: 1,000 Units/hr, then adjust dose as needed per aPTT).&nbs p; CA UTION - If LMWH given in ER, AVOID bolus and start next dose/drip 12 hrs after ER dosage.&nb sp; M ust program rate using programmab le infusion pump.&nbsp ; [place] ck with the ordering provider first prior to any administra tion should the patient be on existing/a dditional anticoagul ant therapy. Rang e, Dosing and Testing: &nbs p;FOR [facility] AND [facility] ONLY &nbs p; - aPTT < 35: & nbsp;Bolus 5000 units, increase rate 300 units/hr&n bsp; - aPTT 35-44:&nbs p; Abraham chastity 3000 units, increase rate 200 units/hr&n bsp; - aPTT 45-54:&nbs p; In crease rate 100 units/hr&n bsp; - aPTT 55-85:&nbs p; NO CHANGE&nbs p; - aPTT 86-95:&nbs p; De crease rate 100 units/hr&n bsp; - aPTT 96-120:&nb sp; H old 30 minutes, decrease rate 150 units/hr&n bsp; - aPTT > 120: Hold 60 minutes, decrease rate 200 units/hr&n bsp; Check aPTT 6 hours after initiation , then Q6H after every change, aPTT Q12H once therapeuti c levels are reached.&n bsp; < BR> ___ & nbsp;FOR [facility] ONLY - aPTT < 40: & nbsp;Bolus 5000 units, increase rate 300 units/hr&n bsp; - aPTT 40-49:&nbs p; Abraham chastity 3000 units, increase rate 200 units/hr&n bsp; - aPTT 50-59:&nbs p; In crease rate 100 units/hr&n bsp; - aPTT 60-85:&amp ;nbsp;&nbs p;NO CHANGE&nbs p; - aPTT 86-95:&nbs p; De crease rate 100 units/hr&a mp;nbsp; - aPTT 96-120:&nb sp; H old 30 minutes, decrease rate 150 units/hr&n bsp; - aPTT > 120: Hold 60 minutes, decrease rate 200 units/hr&n bsp; Check aPTT 6 hours after initiation , then Q6H after every change, aPTT Q12H once therapeuti c levels are reached.&n bsp; DO NOT ADJUST INITIAL BOLUS OR INITIAL INFUSION RATE.<br&g t; sennosides Yes 8.6mg 8.6 mg, Uni vers (SENOKOT) 07-04 Oral, ity of tablet 8.6 15:00: DAILY, [place] mg 00 First dose Medical on Sun07/04/22 at 0900, Until Discontinu ed, Routine polyethylen Yes 17g 17 g, Unive rs e glycol 24 Oral, ity of 3350 powder 15:00: DAILY, [place] 17 g 00 First dose Medical on Sun07/04/22 at 0900, Until Discontinu ed, Routine finasteride Yes 5mg 5 mg, Unive rs (PROSCAR) 07-04 Oral, ity of tablet 5 mg 15:00: DAILY, [place] 00 First dose Medical on [facility] 07/04/22 at 0900, Until Discontinu ed, Routine aspirin Yes 81mg 81 mg, Univers chewable 07-04 Oral, ity of tablet 81 15:00: DAILY, [place] mg 00 First dose Medical on [facility] 07/04/22 at 0900, Until Discontinu ed, Routine sennosides 2022- No 8.6mg 8.6 mg, Un jigna (SENOKOT) 07-04 Oral, ity of tablet 8.6 15:00: 20:14 DAILY, [place] mg 00 :37 First dose Medical on [facility] 07/04/22 at 0900, Until Discontinu ed, Routine polyethylen 2022- No 17g 17 g, Univ ers e glycol 07-04 Oral, ity of 3350 powder 15:00: 20:14 DAILY, [place] 17 g 00 :37 First dose Medical on [facility] 07/04/22 at 0900, Until Discontinu ed, Routine finasteride 2022- No 5mg 5 mg, Univ ers (PROSCAR) 07-04 Oral, ity of tablet 5 mg 15:00: 20:14 DAILY, [place] 00 :37 First dose Medical on [facility] 07/04/22 at 0900, Until Discontinu ed, Routine aspirin 2022- No 81mg 81 mg, Univers chewable 07-04 Oral, ity of tablet 81 15:00: 20:14 DAILY, [place] mg 00 :37 First dose Medical on [facility] 07/04/22 at 0900, Until Discontinu ed, Routine bisacodyL 2022- No 10mg 10 mg, Unive rs (DULCOLAX) 07-04 Rectal, ity o f suppository 15:00: 14:40 ONCE NOW, [place] 10 mg 00 :00 1 dose, On Medical [facility] 07/04/22 at 0900, Routine lactulose 2022- No 30mL 30 mL, Unive rs (CEPHULAC) 07-04 Oral, ity of solution 30 15:00: 14:39 ONCE, 1 [place] mL 00 :00 dose, On Medical Sun07/04/22 at 0900, Routine heparin 2022-0 2022- No 0U/h 0-2,150 Univer s 25,000 07-04 Units/hr ity of Units/250 12:48: 20:02 (0-21.5 [place] mL 19 :21 mL/hr), IV Medical (Premixed Infusion, Branc h Bag) in TITRATE, 0.45 % NS Parameters in Admin. Instr., Starting on Sun07/04/22 at 0648
In itiate infusion at 12 units/kg/h r calculated as: 1,000 Units/hr (Maximum initial rate: 1,000 Units/hr, then adjust dose as needed per aPTT).&nbs p; CA UTION - If LMWH given in ER, AVOID bolus and start next dose/drip 12 hrs after ER dosage.&nb sp; M ust program rate using programmab le infusion pump.&nbsp ; [place] ck with the ordering provider first prior to any administra tion should the patient be on existing/a dditional anticoagul ant therapy. Range, Dosing and Testing: &nbs p;FOR [facility] ONLY &nbs p; - aPTT < 35: & nbsp;Bolus 5000 units, increase rate 300 units/hr&n bsp; - aPTT 35-44:&nbs p; Abraham chastity 3000 units, increase rate 200 units/hr&n bsp; - aPTT 45-54:&nbs p; In crease rate 100 units/hr&n bsp; - aPTT 55-85:&nbs p; NO CHANGE&nbs p; - aPTT 86-95:&nbs p; De crease rate 100 units/hr&n bsp; - aPTT 96-120:&nb sp; H old 30 minutes, decrease rate 150 units/hr&n bsp; - aPTT > 120: Hold 60 minutes, decrease rate 200 units/hr&n bsp; Check aPTT 6 hours after initiation , then Q6H after every change, aPTT Q12H once therapeuti c levels are reached.&n bsp;
&nbs p;FOR [facility] ONLY - aPTT < 40: & nbsp;Bolus 5000 units, increase rate 300 units/hr&n bsp; - aPTT 40-49:&nbs p; Abraham chastity 3000 units, increase rate 200 units/hr&n bsp; - aPTT 50-59:&nbs p; In crease rate 100 units/hr&n bsp; - aPTT 60-85:&nbs p;&nbs p;NO CHANGE&nbs p; - aPTT 86-95:&nbs p; De crease rate 100 units/hr&n bsp; - aPTT 96-120:&nb sp; H old 30 minutes, decrease rate 150 units/hr&n bsp; - aPTT > 120: Hold 60 minutes, decrease rate 200 units/hr&n bsp; Check aPTT 6 hours after initiation , then Q6H after every change, aPTT Q12H once therapeuti c levels are reached.&a mp;nbsp;&n bsp; DO NOT ADJUST INITIAL BOLUS OR INITIAL INFUSION RATE.
heparin No 3000U FOR Univers (1,000 07-04 REBOLUSING ity of unit/mL, 10 12:48: 22:00 , Starting [place] mL vial) 12 :25 on [facility] for 07/04/22 at [place] Rebolusing 0648, Until Sun07/05/22 at 1600, Routine
Dosing based on aPPT testing parameters (refer to continuous heparin drip order).
simethicone 2022- No 80mg 80 mg, Uni vers (GAS RELIEF 07-04 Oral, ity of (SIMETHICON 12:45: 12:11 ONCE, 1 [place] E)) 00 :00 dose, On Medical chewable [facility] tablet 80 07/04/22 at mg 0645, Routine Sliding Yes Subcutaneo Univ ers Scale 07-04 , TID ity of Insulin - 03:00: MEALS+HS, [place] Lispro 00 First dose Medical (HumaLOG) + on [facility] 07/03/22 at Testing 2100, Until Discontinu ed, Routine Sliding No Subcutaneo Uni vers Scale 07-04 , TID ity of Insulin - 03:00: 20:14 MEALS+HS, [place] Lispro 00 :37 First dose Medical (HumaLOG) + on [facility] 07/03/22 at Testing 2100, Until Discontinu ed, Routine atorvastati 2022- No 20mg 20 mg, Uni vers n (LIPITOR) 07-04 Oral, QHS, i ty of tablet 20 03:00: 16:33 First dose [place] mg 00 :07 on [facility] 07/03/22 at Branch 2100, Until Discontinu ed, Routine ipratropium Yes 3mL 3 mL, Unive rs -albuteroL 07-04 Inhalation ity of (DUONEB) 02:00: , QID, [place] 0.5 mg-3 00 First dose Medic al mg(2.5 mg on [facility] base)/3 mL 07/03/22 at nebulizer 2000, solution 3 Until mL Discontinu ed, Routine metoprolol Yes 25mg 25 mg, Unive rs tartrate 07-04 Oral, BID, ity o f (LOPRESSOR) 02:00: First dose [place] tablet 25 00 on Mon Medical mg 07/03/22 at [place] 1999, Until Discontinu ed, Routine amiodarone Yes 200mg 200 mg, Uni vers (PACERONE) 07-04 Oral, BID, ity of tablet 200 02:00: First dose [place] mg 00 on [facility] Medical 07/03/22 at [place] 1999, Until Discontinu ed, Routine ipratropium 2022- No 3mL 3 mL, Univ ers -albuteroL 07-04 Inhalation it y of (DUONEB) 02:00: 20:14 , QID, [place] 0.5 mg-3 00 :37 First dose Medic al mg(2.5 mg on [facility] base)/3 mL 07/03/22 at nebulizer 1999, solution 3 Until mL Discontinu ed, Routine metoprolol 2022- No 25mg 25 mg, Univ ers tartrate 07-04 Oral, BID, ity of (LOPRESSOR) 02:00: 20:14 First dose [place] tablet 25 00 :37 on Mon Medical mg 07/03/22 at [place] 1999, Until Discontinu ed, Routine amiodarone 2022- No 200mg 200 mg, Un jigna (PACERONE) 07-04 Oral, BID, it y of tablet 200 02:00: 20:14 First dose [place] mg 00 :37 on [facility] Medical 07/03/22 at [place] 1999, Until Discontinu ed, Routine dextrose Yes 250mL 250 mL, IV Un jigna 10% (D10W) 07-03 Infusion, ity of bolus 23:30: PRN - SEE [place] infusion 13 INSTRUCTIO Medic al 250 mL NS, Branch Administer over 60 Minutes, Other, If blood glucose is < or = 70 mg/dL and patient is unable to swallow or has mental status changes, Starting on Sun07/03/22 at 1730
If blood glucose is < or = 70 mg/dL and patient is unable to swallow or has mental status changes (Give glucagon order if patient needs fluid restrictio n): IF IV access available: Dextrose 10%. 1. 125 mL (? bag) of D10W IV infusion - equivalent to 12.5 g dextrose 2. Blood glucose - draw blood glucose 15 minutes after D10W Administra tion. 3. If blood glucose is < 80 mg/dL, repeat.
dextrose 2022- No 250mL 250 mL, IV U nivers 10% (D10W) 07-03 Infusion, ity of bolus 23:30: 20:14 PRN - SEE [place] infusion 13 :37 INSTRUCTIO Medic al 250 mL NS, Branch Administer over 60 Minutes, Other, If blood glucose is < or = 70 mg/dL and patient is unable to swallow or has mental status changes, Starting on Sun07/03/22 at 1730
If blood glucose is < or = 70 mg/dL and patient is unable to swallow or has mental status changes (Give glucagon order if patient needs fluid restrictio n): IF IV access available: Dextrose 10%. 1. 125 mL (? bag) of D10W IV infusion - equivalent to 12.5 g dextrose 2. Blood glucose - draw blood glucose 15 minutes after D10W Administra tion. 3. If blood glucose is < 80 mg/dL, repeat.
glucagon Yes 1mg 1 mg, Univers (GLUCAGEN 07-03 Intramuscu ity of DIAGNOSTIC 23:30: lar, PRN, [place] KIT) 10 Starting Medical injection 1 on Sun [facility] 07/03/22 at 1730, Until Discontinu ed, SPENCER, Blood Glucose < or = 70 mg/dL and patient is NPO, unable to swallow or has mental changes. glucagon 2022- No 1mg 1 mg, Univers (GLUCAGEN 07-03 Intramuscu ity of DIAGNOSTIC 23:30: 20:14 [place], PRN, [place] KIT) 10 :37 Starting Medical injection 1 on Sun [facility] 07/03/22 at 1730, Until [place] 07/06/22 at 1414, SPENCER, Blood Glucose < or = 70 mg/dL and patient is NPO, unable to swallow or has mental changes. acetaminoph 2023-0 Yes 650mg 650 mg, Un jigna en 07-03 Oral, ity of (TYLENOL) 23:29: Q6HPRN, [place] tablet 650 33 Starting Medic al mg on Mon Branch 07/03/22 at 1729, Until Discontinu ed, Routine, Pain (scale 1-3) acetaminoph 3-0 2022- No 650mg 650 mg, U nivers en 07-03 Oral, ity of (TYLENOL) 23:29: 20:14 Q6HPRN, [facility] s tablet 650 33 :37 Starting Medic al mg on Mon Branch 07/03/22 at 1729, Until [place] 07/06/22 at 1414, Routine, Pain (scale 1-3) fosinopriL 2022-0 Yes 20mg Take 20 mg U nivers 20 mg 07-03 by mouth ity of tablet 17:32: daily. [address] Branch amLODIPine 2022-0 Yes 10mg Take 10 mg U nivers 10 mg 07-03 by mouth ity of tablet 17:32: daily. [address] Branch metoprolol 2022-0 Yes 25mg Take 25 mg U nivers tartrate 50 07-03 by mouth ity of mg tablet 17:32: in the [place] [address] morning Medical and 25 mg Branch in the evening. pravastatin 2022-0 Yes 80mg Take 80 mg Univers 80 mg 07-03 by mouth ity of tablet 17:32: at [place] [address] bedtime. Medical Branch HYDROcodone 2022-0 Yes 1{tbl} Take 1 Un jigna -acetaminop -23 tablet by ity of hen 5-325 17:32: mouth in [facility] s mg tablet 44 the Medical morning Branch and 1 tablet in the evening. amiodarone 2022-0 Yes 200mg Take 200 Un jigna 200 mg 1-23 mg by ity of tablet 17:32: mouth in [place] [address] the Medical morning Branch and 200 mg in the evening. apixaban 5 2022-0 Yes 5mg Take 5 mg Un jigna mg tablet 23 by mouth ity of 17:32: in the [place] [address] morning Medical and 5 mg Branch in the evening. finasteride 2022-0 Yes 5mg Take 5 mg U nivers 5 mg tablet 23 by mouth ity of 17:32: in the [place] [address] morning. Medical Branch gabapentin 2023-0 Yes 300mg Take 300 Un jigna 300 mg 1-23 mg by ity of capsule 17:32: mouth [place] 44 every Medical evening. Branch metformin 2023-0 Yes 500mg Take 500 Uni vers ER 500 mg 1-23 mg by ity of 24 hr 17:32: mouth [place] tablet 44 daily with Medical breakfast. Branch aspirin 81 2022-0 Yes 81mg Take 81 mg U nivers mg chewable 1-23 by mouth ity of tablet 17:32: in the [place] [address] morning. Medical Branch fosinopriL 2022-0 Yes 20mg Take 20 mg U nivers 20 mg 1-23 by mouth ity of tablet 11:23: daily. [place] [address] Medical Branch amLODIPine 2022-0 Yes 10mg Take 10 mg U nivers 10 mg 1-23 by mouth ity of tablet 11:23: daily. [place] [address] Medical Branch amiodarone 2022-0 Yes 200mg Take 200 Un jigna 200 mg 1-23 mg by ity of tablet 11:23: mouth in [place] [address] the Medical morning Branch and 200 mg in the evening. apixaban 5 2022-0 Yes 5mg Take 5 mg Un jigna mg tablet 1-23 by mouth ity of 11:23: in the [place] [address] morning Medical and 5 mg Branch in the evening. finasteride 2022-0 Yes 5mg Take 5 mg U nivers 5 mg tablet 1-23 by mouth ity of 11:23: in the [place] [address] morning. Medical Branch gabapentin 3-0 Yes 300mg Take 300 Un jigna 300 mg 1-23 mg by ity of capsule 11:23: mouth [place] 42 every Medical evening. Branch metformin 3-0 Yes 500mg Take 500 Uni vers ER 500 mg 1-23 mg by ity of 24 hr 11:23: mouth [place] tablet 42 daily with Medical breakfast. Branch aspirin 81 2022-0 Yes 81mg Take 81 mg U nivers mg chewable 1-23 by mouth ity of tablet 11:23: in the [place] [address] morning. Medical Branch fosinopriL 3-0 Yes 20mg Take 20 mg U nivers 20 mg 1-23 by mouth ity of tablet 11:23: daily. [place] [address] Medical Branch amLODIPine 3-0 Yes 10mg Take 10 mg U nivers 10 mg 1-23 by mouth ity of tablet 11:23: daily. [place] [address] Medical Branch amiodarone 2022-0 Yes 200mg Take 200 Un jigna 200 mg 1-23 mg by ity of tablet 11:23: mouth in [place] [address] the Medical morning Branch and 200 mg in the evening. apixaban 5 2022-0 Yes 5mg Take 5 mg Un jigna mg tablet 1-23 by mouth ity of 11:23: in the [place] [address] morning Medical and 5 mg Branch in the evening. finasteride 2022-0 Yes 5mg Take 5 mg U nivers 5 mg tablet 1-23 by mouth ity of 11:23: in the [place] [address] morning. Medical Branch gabapentin 2022-0 Yes 300mg Take 300 Un jigna 300 mg 1-23 mg by ity of capsule 11:23: mouth [place] 42 every Medical evening. Branch metformin 2022-0 Yes 500mg Take 500 Uni vers ER 500 mg 1-23 mg by ity of 24 hr 11:23: mouth [place] tablet 42 daily with Medical breakfast. Branch aspirin 81 2022-0 Yes 81mg Take 81 mg U nivers mg chewable 1-23 by mouth ity of tablet 11:23: in the [place] [address] morning. Medical Branch metoprolol 2022-0 Yes 25mg Take 25 mg U nivers tartrate 50 1-23 by mouth ity of mg tablet 11:23: in the [place] [address] morning Medical and 25 mg Branch in the evening. metoprolol 2022-0 Yes 25mg Take 25 mg U nivers tartrate 50 1-23 by mouth ity of mg tablet 11:23: in the [place] [address] morning Medical and 25 mg Branch in the evening. pravastatin 2022-0 Yes 80mg Take 80 mg Univers 80 mg 1-23 by mouth ity of tablet 11:20: at [place] [address] bedtime. Medical Branch HYDROcodone 2022-0 Yes 1{tbl} Take 1 Un jigna -acetaminop 1-23 tablet by ity of hen 5-325 11:20: mouth in [facility] s mg tablet 28 the Medical morning Branch and 1 tablet in the evening. pravastatin 3-0 Yes 80mg Take 80 mg Univers 80 mg 1-23 by mouth ity of tablet 11:20: at [place] [address] bedtime. Medical Branch HYDROcodone 2022-0 Yes 1{tbl} Take 1 Un jigna -acetaminop 1-23 tablet by ity of hen 5-325 11:20: mouth in [facility] s mg tablet 28 the Medical morning Branch and 1 tablet in the evening. fosinopriL 2-0 Yes 20mg Take 20 mg U nivers 20 mg 7-26 by mouth ity of tablet 11:08: daily. [place] [address] Medical Branch amLODIPine 2-0 Yes 10mg Take 10 mg U nivers 10 mg 7-26 by mouth ity of tablet 11:08: daily. [place] [address] Medical Branch metoprolol 2-0 Yes 50mg Take 50 mg U nivers tartrate 50 7-26 by mouth ity of mg tablet 11:08: daily. [place] [address] Medical Branch pravastatin 2-0 Yes 80mg Take 80 mg Univers 80 mg 7-26 by mouth ity of tablet 11:08: at [place] [address] bedtime. Medical Branch fosinopriL 2-0 Yes 20mg Take 20 mg U nivers 20 mg 7-26 by mouth ity of tablet 11:08: daily. [place] [address] Medical Branch amLODIPine 2-0 Yes 10mg Take 10 mg U nivers 10 mg 7-26 by mouth ity of tablet 11:08: daily. [place] [address] Medical Branch metoprolol 2-0 Yes 50mg Take 50 mg U nivers tartrate 50 7-26 by mouth ity of mg tablet 11:08: daily. [address] Branch pravastatin 2-0 Yes 80mg Take 80 mg Univers 80 mg 7-26 by mouth ity of tablet 11:08: at [place] [address] bedtime. Medical Branch fosinopriL 2-0 Yes 20mg Take 20 mg U nivers 20 mg 7-26 by mouth ity of tablet 11:08: daily. [place] [address] Medical Branch amLODIPine 2-0 Yes 10mg Take 10 mg U nivers 10 mg 7-26 by mouth ity of tablet 11:08: daily. [place] [address] Medical Branch metoprolol 2-0 Yes 50mg Take 50 mg U nivers tartrate 50 7-26 by mouth ity of mg tablet 11:08: daily. [place] [address] Medical Branch pravastatin 2-0 Yes 80mg Take 80 mg Univers 80 mg 7-26 by mouth ity of tablet 11:08: at [place] [address] bedtime. Medical Branch fosinopriL 2-0 Yes 20mg Take 20 mg U nivers 20 mg 7-26 by mouth ity of tablet 11:08: daily. [place] [address] Medical Branch amLODIPine 2021-0 Yes 10mg Take 10 mg U nivers 10 mg 7-26 by mouth ity of tablet 11:08: daily. [place] [address] Medical Branch metoprolol 2021-0 Yes 50mg Take 50 mg U nivers tartrate 50 7-26 by mouth ity of mg tablet 11:08: daily. [place] [address] Medical Branch pravastatin 2021-0 Yes 80mg Take 80 mg Univers 80 mg 7-26 by mouth ity of tablet 11:08: at [place] [address] bedtime. Medical Branch fosinopriL 2021-0 Yes 20mg Take 20 mg U nivers 20 mg 7-26 by mouth ity of tablet 11:08: daily. [place] [address] Medical Branch amLODIPine 2021-0 Yes 10mg Take 10 mg U nivers 10 mg 7-26 by mouth ity of tablet 11:08: daily. [place] [address] Medical Branch metoprolol 2021-0 Yes 50mg Take 50 mg U nivers tartrate 50 7-26 by mouth ity of mg tablet 11:08: daily. [place] [address] Medical Branch pravastatin 2021-0 Yes 80mg Take 80 mg Univers 80 mg 7-26 by mouth ity of tablet 11:08: at [place] [address] bedtime. Medical Branch fosinopriL 2021-0 Yes 20mg Take 20 mg U nivers 20 mg 7-26 by mouth ity of tablet 11:08: daily. [place] [address] Medical Branch amLODIPine 2021-0 Yes 10mg Take 10 mg U nivers 10 mg 7-26 by mouth ity of tablet 11:08: daily. [place] [address] Medical Branch metoprolol 2021-0 Yes 50mg Take 50 mg U nivers tartrate 50 7-26 by mouth ity of mg tablet 11:08: daily. [place] [address] Medical Branch pravastatin 2021-0 Yes 80mg Take 80 mg Univers 80 mg 7-26 by mouth ity of tablet 11:08: at [place] [address] bedtime. Medical Branch umeclidiniu 2021-0 Yes 1{puff} Inhale 1 Univers m-vilantero 4-29 Puff ity of L (ANORO 00:00: daily. [facility]) Medical 62.5-25 Branch mcg/actuati on inhalation disk umeclidiniu 2021-0 Yes 1{puff} Inhale 1 Univers m-vilantero 4-29 Puff ity of L (ANORO 00:00: daily. [place] [facility]) 00 Medical 62.5-25 Branch mcg/actuati on inhalation disk umeclidiniu 2021-0 Yes 1{puff} Inhale 1 Univers m-vilantero 4-29 Puff ity of L (ANORO 00:00: daily. [place] [facility]) 00 Medical 62.5-25 Branch mcg/actuati on inhalation disk umeclidiniu 2021-0 Yes 1{puff} Inhale 1 Univers m-vilantero 4-29 Puff ity of L (ANORO 00:00: daily. [place] [facility]) 00 Medical 62.5-25 Branch mcg/actuati on inhalation disk umeclidiniu 2021-0 Yes 1{puff} Inhale 1 Univers m-vilantero 4-29 Puff ity of L (ANORO 00:00: daily. [place] [facility]) 00 Medical 62.5-25 Branch mcg/actuati on inhalation disk umeclidiniu 2021-0 Yes 1{puff} Inhale 1 Univers m-vilantero 4-29 Puff ity of L (ANORO 00:00: daily. [place] [facility]) 00 Medical 62.5-25 Branch mcg/actuati on inhalation disk umeclidiniu 2021-0 Yes 1{puff} Inhale 1 Univers m-vilantero 4-29 Puff ity of L (ANORO 00:00: daily. [place] [facility]) 00 Medical 62.5-25 Branch mcg/actuati on inhalation disk umeclidiniu 2021-0 Yes 1{puff} Inhale 1 Univers m-vilantero 4-29 Puff ity of L (ANORO 00:00: daily. [place] [facility]) 00 Medical 62.5-25 Branch mcg/actuati on inhalation disk umeclidiniu 2021-0 Yes 1{puff} Inhale 1 Univers m-vilantero 4-29 Puff ity of L (ANORO 00:00: daily. [place] [facility]) 00 Medical 62.5-25 Branch mcg/actuati on inhalation disk umeclidiniu 2021-0 Yes 1{puff} Inhale 1 Univers m-vilantero 4-29 Puff ity of L (ANORO 00:00: daily. [place] [facility]) 00 Medical 62.5-25 Branch mcg/actuati on inhalation disk umeclidiniu 2021-0 Yes 1{puff} Inhale 1 Univers m-vilantero 4-29 Puff ity of L (ANORO 00:00: daily. [place] [facility]) 00 Medical 62.5-25 Branch mcg/actuati on inhalation disk umeclidiniu 2021-0 Yes 1{puff} Inhale 1 Univers m-vilantero 4-29 Puff ity of L (ANORO 00:00: daily. [place] [facility]) 00 Medical 62.5-25 Branch mcg/actuati on inhalation disk umeclidiniu 2021-0 Yes 1{puff} Inhale 1 Univers m-vilantero 4-29 Puff ity of L (ANORO 00:00: daily. [place] [facility]) 00 Medical 62.5-25 Branch mcg/actuati on inhalation disk umeclidiniu 2021-0 Yes 1{puff} Inhale 1 Univers m-vilantero 4-29 Puff ity of L (ANORO 00:00: daily. [place] [facility]) 00 Medical 62.5-25 Branch mcg/actuati on inhalation disk umeclidiniu 2021-0 Yes 1{puff} Inhale 1 Univers m-vilantero 4-29 Puff ity of L (ANORO 00:00: daily. [place] [facility]) 00 Medical 62.5-25 Branch mcg/actuati on inhalation disk umeclidiniu 2021-0 Yes 1{puff} Inhale 1 Univers m-vilantero 4-29 Puff ity of L (ANORO 00:00: daily. [place] [facility]) 00 Medical 62.5-25 Branch mcg/actuati on inhalation disk umeclidiniu 2021-0 Yes 1{puff} Inhale 1 Univers m-vilantero 4-29 Puff ity of L (ANORO 00:00: daily. [place] [facility]) 00 Medical 62.5-25 Branch mcg/actuati on inhalation disk umeclidiniu 2021-0 Yes 1{puff} Inhale 1 Univers m-vilantero 4-29 Puff ity of L (ANORO 00:00: daily. [place] [facility]) 00 Medical 62.5-25 Branch mcg/actuati on inhalation disk umeclidiniu 2-0 Yes 1{puff} Inhale 1 Univers m-vilantero 4-29 Puff ity of L (ANORO 00:00: daily. [place] [facility]) 00 Medical 62.5-25 Branch mcg/actuati on inhalation disk umeclidiniu 2-0 Yes 1{puff} Inhale 1 Univers m-vilantero 4-29 Puff ity of L (ANORO 00:00: daily. [place] [facility]) 00 Medical 62.5-25 Branch mcg/actuati on inhalation disk umeclidiniu 2-0 Yes 1{puff} Inhale 1 Univers m-vilantero 4-29 Puff ity of L (ANORO 00:00: daily. [place] [facility]) 00 Medical 62.5-25 Branch mcg/actuati on inhalation disk umeclidiniu 2-0 Yes 1{puff} Inhale 1 Univers m-vilantero 4-29 Puff ity of L (ANORO 00:00: daily. [place] [facility]) 00 Medical 62.5-25 Branch mcg/actuati on inhalation disk umeclidiniu 2-0 Yes 1{puff} Inhale 1 Univers m-vil[place]ter[place] 4-29 Puff ity of L (ANORO 00:00: daily. [place] [facility]) 00 Medical 62.5-25 Branch mcg/actuati on inhalation disk umeclidiniu 2-0 Yes 1{puff} Inhale 1 Univers m-vilanter[place] 4-29 Puff ity of L (ANORO 00:00: daily. [place] [facility]) 00 Medical 62.5-25 Branch mcg/actuati on inhalation disk umeclidiniu 2-0 Yes 1{puff} Inhale 1 Univers m-vilantero 4-29 Puff ity of L (ANORO 00:00: daily. [place] [facility]) 00 Medical 62.5-25 Branch mcg/actuati on inhalation disk umeclidiniu 2-0 Yes 1{puff} Inhale 1 Univers m-vilantero 4-29 Puff ity of L (ANORO 00:00: daily. [place] [facility]) 00 Medical 62.5-25 Branch mcg/actuati on inhalation disk umeclidiniu 2021-0 Yes 1{puff} Inhale 1 Univers m-vilantero 4-29 Puff ity of L (ANORO 00:00: daily. [place] [facility]) 00 Medical 62.5-25 Branch mcg/actuati on inhalation disk umeclidiniu 2021-0 Yes 1{puff} Inhale 1 Univers m-vilantero 4-29 Puff ity of L (ANORO 00:00: daily. [place] [facility]) 00 Medical 62.5-25 Branch mcg/actuati on inhalation disk umeclidiniu 2021-0 Yes 1{puff} Inhale 1 Univers m-vilanter[facility] 4-29 Puff ity of L (ANORO 00:00: daily. [place] [facility]) 00 Medical 62.5-25 Branch mcg/actuati on inhalation disk umeclidiniu 2021-0 Yes 1{puff} Inhale 1 Univers m-vil[facility]ter[facility] 4-29 Puff ity of L (ANORO 00:00: daily. [place] [facility]) 00 Medical 62.5-25 Branch mcg/actuati on inhalation disk umeclidiniu 2021-0 Yes 1{puff} Inhale 1 Univers m-vilantero 4-29 Puff ity of L (ANORO 00:00: daily. [place] [facility]) 00 Medical 62.5-25 Branch mcg/actuati on inhalation disk umeclidiniu 2021-0 Yes 1{puff} Inhale 1 Univers m-vilantero 4-29 Puff ity of L (ANORO 00:00: daily. [place] [facility]) 00 Medical 62.5-25 Branch mcg/actuati on inhalation disk umeclidiniu 2-0 Yes 1{puff} Inhale 1 Univers m-vil[facility]ter[facility] 4-29 Puff ity of L (ANORO 00:00: daily. [place] [facility]) 00 Medical 62.5-25 Branch mcg/actuati on inhalation disk umeclidiniu 2-0 Yes 1{puff} Inhale 1 Univers m-vil[place]ter[place] 4-29 Puff ity of L (ANORO 00:00: daily. [place] [facility]) 00 Medical 62.5-25 Branch mcg/actuati on inhalation disk umeclidiniu 0 Yes 1{puff} Inhale 1 Univers m-vilantero 4-29 Puff ity of L (ANORO 00:00: daily. [place] [facility]) 00 Medical 62.5-25 Branch mcg/actuati on inhalation disk umeclidiniu 2021-0 Yes 1{puff} Inhale 1 Univers m-vilantero 4-29 Puff ity of L (ANORO 00:00: daily. [place] [facility]) 00 Medical 62.5-25 Branch mcg/actuati on inhalation disk umeclidiniu 0 Yes 1{puff} Inhale 1 Univers m-vilantero 4-29 Puff ity of L (ANORO 00:00: daily. [place] [facility]) 00 Medical 62.5-25 Branch mcg/actuati on inhalation disk umeclidiniu 0 Yes 1{puff} Inhale 1 Univers m-vilantero 4-29 Puff ity of L (ANORO 00:00: daily. [place] [facility]) 00 Medical 62.5-25 Branch mcg/actuati on inhalation disk umeclidiniu 0 Yes 1{puff} Inhale 1 Univers m-vilantero 4-29 Puff ity of L (ANORO 00:00: daily. [place] [facility]) 00 Medical 62.5-25 Branch mcg/actuati on inhalation disk ALBUTEROL 0 Yes INHALE 2 Univ ers 90 2-14 PUFFS BY ity of mcg/actuati 00:00: MOUTH [place] on inhaler 00 EVERY 6 Medica l HOURS Branch NEEDED FOR WHEEZING OR SHORTNESS OF BREATH ALBUTEROL 0 Yes INHALE 2 Univ ers 90 2-14 PUFFS BY ity of mcg/actuati 00:00: MOUTH [place] on inhaler 00 EVERY 6 Medica l HOURS Branch NEEDED FOR WHEEZING OR SHORTNESS OF BREATH ALBUTEROL 0 Yes INHALE 2 Univ ers 90 2-14 [...] FOR WHEEZING OR SHORTNESS OF BREATH ALBUTEROL 0 Yes INHALE 2 Univ ers 90 2-14 [...] FOR WHEEZING OR SHORTNESS OF BREATH ALBUTEROL 0 Yes INHALE 2 Univ ers 90 2-14 [...] FOR WHEEZING OR SHORTNESS OF BREATH ALBUTEROL 0 Yes INHALE 2 Univ ers 90 2-14 PUFFS BY ity of mcg/actuati 00:00: MOUTH [place] on inhaler 00 EVERY 6 Medica l HOURS Branch NEEDED FOR WHEEZING OR SHORTNESS OF BREATH ALBUTEROL 0 Yes INHALE 2 Univ ers 90 2-14 PUFFS BY ity of mcg/actuati 00:00: MOUTH [place] on inhaler 00 EVERY 6 Medica l HOURS Branch NEEDED FOR WHEEZING OR SHORTNESS OF BREATH ALBUTEROL 0 Yes INHALE 2 Univ ers 90 2-14 PUFFS BY ity of mcg/actuati 00:00: MOUTH [place] on inhaler 00 EVERY 6 Medica l HOURS Branch NEEDED FOR WHEEZING OR SHORTNESS OF BREATH ALBUTEROL 0 Yes INHALE 2 Univ ers 90 2-14 PUFFS BY ity of mcg/actuati 00:00: MOUTH [place] on inhaler 00 EVERY 6 Medica l HOURS Branch NEEDED FOR WHEEZING OR SHORTNESS OF BREATH ALBUTEROL 0 Yes INHALE 2 Univ ers 90 2-14 PUFFS BY ity of mcg/actuati 00:00: MOUTH [place] on inhaler 00 EVERY 6 Medica l HOURS Branch NEEDED FOR WHEEZING OR SHORTNESS OF BREATH ALBUTEROL 0 Yes INHALE 2 Univ ers 90 2-14 PUFFS BY ity of mcg/actuati 00:00: MOUTH [place] on inhaler 00 EVERY 6 Medica l HOURS Branch NEEDED FOR WHEEZING OR SHORTNESS OF BREATH ALBUTEROL 0 Yes INHALE 2 Univ ers 90 2-14 PUFFS BY ity of mcg/actuati 00:00: MOUTH [place] on inhaler 00 EVERY 6 Medica l HOURS Branch NEEDED FOR WHEEZING OR SHORTNESS OF BREATH ALBUTEROL 0 Yes INHALE 2 Univ ers 90 2-14 PUFFS BY ity of mcg/actuati 00:00: MOUTH [place] on inhaler 00 EVERY 6 Medica l HOURS Branch NEEDED FOR WHEEZING OR SHORTNESS OF BREATH ALBUTEROL 0 Yes INHALE 2 Univ ers 90 2-14 PUFFS BY ity of mcg/actuati 00:00: MOUTH [place] on inhaler 00 EVERY 6 Medica l HOURS Branch NEEDED FOR WHEEZING OR SHORTNESS OF BREATH ALBUTEROL 0 Yes INHALE 2 Univ ers 90 2-14 PUFFS BY ity of mcg/actuati 00:00: MOUTH [place] on inhaler 00 EVERY 6 Medica l HOURS Branch NEEDED FOR WHEEZING OR SHORTNESS OF BREATH ALBUTEROL 0 Yes INHALE 2 Univ ers 90 2-14 [...] FOR WHEEZING OR SHORTNESS OF BREATH ALBUTEROL 0 Yes INHALE 2 Univ ers 90 2-14 [...] FOR WHEEZING OR SHORTNESS OF BREATH ALBUTEROL 0 Yes INHALE 2 Univ ers 90 2-14 PUFFS BY ity of mcg/actuati 00:00: MOUTH [place] on inhaler 00 EVERY 6 Medica l HOURS Branch NEEDED FOR WHEEZING OR SHORTNESS OF BREATH ALBUTEROL 0 Yes INHALE 2 Univ ers 90 2-14 PUFFS BY ity of mcg/actuati 00:00: MOUTH [place] on inhaler 00 EVERY 6 Medica l HOURS Branch NEEDED FOR WHEEZING OR SHORTNESS OF BREATH ALBUTEROL 0 Yes INHALE 2 Univ ers 90 2-14 PUFFS BY ity of mcg/actuati 00:00: MOUTH [place] on inhaler 00 EVERY 6 Medica l HOURS Branch NEEDED FOR WHEEZING OR SHORTNESS OF BREATH ALBUTEROL 0 Yes INHALE 2 Univ ers 90 2-14 [...] 24 l 50 mg 24 hr tablet amLODIPine Yes 10mg QD Take 10 mg [...] MG 00:00: [facility]osp[facility] tablet 00 l latanoprost 0 Yes INT 1 GTT M ethodi (XALATAN) 8-[address] 0.005 % 00:00: [facility]osp[facility] ophthalmic 00 l solution fosinopril 0 Yes TK 1 T PO [facility] (MONOPRIL) 8-[address] 20 MG 00:00: Hospita tablet 00 l latanoprost 0 Yes INT 1 GTT M ethodi (XALATAN) 8-[address] 0.005 % 00:00: [facility]osp[facility] ophthalmic 00 l solution pravastatin 0 Yes TK 1 T PO M ethodi (PRAVACHOL) 8-[address] 80 MG 00:00: Hospita tablet 00 l pravastatin 0 Yes TK 1 T PO M ethodi (PRAVACHOL) 8-[address] 80 MG 00:00: Hospita tablet 00 l PROAIR HFA 0 Yes INL 2 PFS [facility] 90 6-[address] mcg/actuati 00:00: Hospit a on inhaler 00 l PROAIR HFA 2016-0 Yes INL 2 PFS [facility] 90 6-[address] mcg/actuati 00:00: Hospit a on inhaler 00 l Immunizations Ordered Filled Immunization Date Status Comments [facility] Immunization Name Name Influenza Virus 2021-08-26 [...] Time Observation Value Comments Source Systolic blood 2022-08-24 14:16:00 133 mm[Hg] Univer sity of pressure [facility] Diastolic blood 2022-08-24 14:16:00 85 mm[Hg] Unive rsity of pressure [facility] Heart rate 2022-08-24 14:16:00 79 /min [facility] Respiratory rate 2022-08-24 14:16:00 17 /min [facility] Body height 2022-08-24 14:16:00 177.8 cm [facility] Body weight 2022-08-24 14:16:00 117.799 kg [facility] BMI 2022-08-24 14:16:00 37.26 kg/m2 [facility] Oxygen saturation in 2022-08-24 14:16:00 91 /min [facility] Arterial blood by [facility] Pulse oximetry Branch Systolic blood 2022-08-16 20:30:00 116 mm[Hg] Univer sity of pressure [facility] Diastolic blood 2022-08-16 20:30:00 70 mm[Hg] Unive rsity of pressure [facility] Heart rate 2022-08-16 20:30:00 82 /min [facility]i of [facility] Respiratory rate 2022-08-16 20:30:00 18 /min [facility] [place] [facility] Oxygen saturation in 2022-08-16 20:30:00 96 /min University of Arterial blood by [facility] juilo Pulse oximetry Branch Body temperature 2022-08-16 16:52:00 36 Dede [facility] [place] [facility] Body height 2022-08-16 16:52:00 177.8 cm [facility] [place] [facility] Body weight 2022-08-16 16:52:00 120.657 kg [facility] [place] [facility] BMI 2022-08-16 16:52:00 38.17 kg/m2 [facility] [place] [facility] Systolic blood 2022-08-10 13:40:00 147 mm[Hg] Univer sity of pressure [facility] [place] [facility] Diastolic blood 2022-08-10 13:40:00 81 mm[Hg] Unive rsity of pressure [facility] Heart rate 2022-08-10 13:40:00 84 /min [facility] [place] [facility] Body temperature 2022-08-10 13:40:00 36.5 Dede [facility] [place] [facility] Respiratory rate 2022-08-10 13:40:00 20 /min [facility] [place] [facility] Body height 2022-08-10 13:40:00 177.8 cm [facility] [place] [facility] Body weight 2022-08-10 13:40:00 119.568 kg [facility] [place] [facility] BMI 2022-08-10 13:40:00 37.82 kg/m2 [facility] [place] [facility] Oxygen saturation in 2022-08-10 13:40:00 92 /min University of Arterial blood by [facility] Pulse oximetry Branch Systolic blood 2022-07-21 17:13:00 148 mm[Hg] Univer sity of pressure [facility] Diastolic blood 2022-07-21 17:13:00 93 mm[Hg] Unive rsity of pressure [facility] Heart rate 2022-07-21 17:13:00 92 /min [facility] [place] [facility] Respiratory rate 2022-07-21 17:13:00 18 /min [facility] [place] [facility] Body height 2022-07-21 17:13:00 177.8 cm [facility] [place] [facility] Body weight 2022-07-21 17:13:00 119.568 kg [facility] [place] [facility] BMI 2022-07-21 17:13:00 37.82 kg/m2 [facility] [place] [facility] Oxygen saturation in 2022-07-21 17:13:00 94 /min University of Arterial blood by [facility] julio Pulse oximetry Branch Systolic blood 2022-07-13 16:10:00 123 mm[Hg] Univer sity of pressure [facility] Diastolic blood 2022-07-13 16:10:00 79 mm[Hg] Unive rsity of pressure [facility] Heart rate 2022-07-13 16:10:00 90 /min [facility] Respiratory rate 2022-07-13 16:10:00 18 /min [facility] [place] [facility] Body height 2022-07-13 16:10:00 177.8 cm [facility] [place] [facility] Body weight 2022-07-13 16:10:00 121.139 kg [facility] [place] [facility] BMI 2022-07-13 16:10:00 38.32 kg/m2 [facility] [place] [facility] Oxygen saturation in 2022-07-13 16:10:00 91 /min University of Arterial blood by [facility] Pulse oximetry Branch Heart rate 2022-07-06 17:05:00 95 /min [facility] [place] [facility] Respiratory rate 2022-07-06 17:05:00 18 /min [facility] [place] [facility] Oxygen saturation in 2022-07-06 17:05:00 95 /min University of Arterial blood by [facility] Pulse oximetry Branch Systolic blood 2022-07-06 13:39:00 117 mm[Hg] Univer sity of pressure [facility] Diastolic blood 2022-07-06 13:39:00 74 mm[Hg] Unive rsity of pressure [facility] Body temperature 2022-07-06 13:39:00 37 Dede [facility] [place] [facility] Body height 2022-07-03 23:46:00 177.8 cm [facility] Body weight 2022-07-03 23:46:00 120.657 kg [facility] BMI 2022-07-03 23:46:00 38.17 kg/m2 [facility] Systolic blood 2022-07-05 14:17:00 126 mm[Hg] Univer sity of pressure [facility] Diastolic blood 2022-07-05 14:17:00 81 mm[Hg] Unive rsity of pressure [place] [facility] Heart rate 2022-07-05 14:17:00 111 /min [facility] [place] [facility] Body temperature 2022-07-05 14:17:00 35.39 Dede [facility] Respiratory rate 2022-07-05 14:17:00 18 /min [facility] [place] [facility] Oxygen saturation in 2022-07-05 14:17:00 96 /min University of Arterial blood by [facility] Pulse oximetry Branch Body height 2022-07-03 23:46:00 177.8 cm [facility] Body weight 2022-07-03 23:46:00 120.657 kg [facility] [place] [facility] BMI 2022-07-03 23:46:00 38.17 kg/m2 [facility] [place] [facility] Systolic blood 2022-07-03 17:24:00 123 mm[Hg] Univer sity of pressure [facility] Diastolic blood 2022-07-03 17:24:00 82 mm[Hg] Unive rsity of pressure [facility] Heart rate 2022-07-03 17:24:00 91 /min [facility] [place] [facility] Respiratory rate 2022-07-03 17:24:00 18 /min [facility] Body height 2022-07-03 17:24:00 177.8 cm [facility] [place] [facility] Body weight 2022-07-03 17:24:00 120.855 kg [facility] [place] [facility] BMI 2022-07-03 17:24:00 38.23 kg/m2 [facility] [place] [facility] Oxygen saturation in 2022-07-03 17:24:00 95 /min [facility] of Arterial blood by [facility] Pulse oximetry Branch Systolic blood 2022-01-03 16:18:00 114 mm[Hg] Univer sity of pressure [place] [facility] Diastolic blood 2022-01-03 16:18:00 71 mm[Hg] Unive rsity of pressure [place] [facility] Heart rate 2022-01-03 16:18:00 85 /min [facility] [place] [facility] Respiratory rate 2022-01-03 16:18:00 19 /min [facility] Body height 2022-01-03 16:18:00 180.3 cm [facility] Body weight 2022-01-03 16:18:00 129.729 kg [facility] BMI 2022-01-03 16:18:00 39.89 kg/m2 [facility] Oxygen saturation in 2022-01-03 16:18:00 95 /min [facility] Arterial blood by [facility] Pulse oximetry Branch Procedures Procedure Date / Time Performing Clinician Source Performed [facility] PATIENT FINANCIAL 2022-08-24 14:06:40 Doctor Unassigned, Un [facility] POLICY [facility] XR CHEST 1 VW 2022-08-16 21:36:00 Dre [facility] IR BIOPSY LUNG 2022-08-16 20:28[facility] Medic al Branch WITH FLUORO BASIC METABOLIC PANEL (NA, 2022-08-10 13:54:00 Hyacinth Hauser [facility] K, CL, CO2, GLUCOSE, BUN, Medica l Branch CREATININE, CA) CBC WITHOUT DIFF 2022-08-10 13:54:00 Hyacinth Hauser [facility] PROTHROMBIN TIME / INR 2022-08-10 13:54:00 Hyacinth Hauser [facility] PET TUMOR IMAGING SKULL TO 2022-07-28 20:15:[address] [facility] PET TUMOR IMAGING SKULL TO 2022-07-28 20:15:[address] [facility] POCT GLUCOSE (AUTOMATED) 2022-07-28 18:03:00 Mami Gonzales [facility] CT ABDOMEN PELVIS W 2022-07-25 17:06:36 Layla Valenzuela [facility] CONTRAST [facility] CONSENT/REFUSAL FOR 2022-07-25 16:21:01 Doctor Unasshunter, [facility] DIAGNOSIS AND TREATMENT [facility] ASSIGNMENT OF BENEFITS 2022-07-25 16:20:39 Doctor Unassigned, [facility] PATIENT QUESTIONNAIRE 2022-07-21 06:01:00 [facility], [facility] Name Medical Branch ASSIGNMENT OF BENEFITS 2022-07-13 16:01:47 Doctor Unassigned, Un iversity of [facility] Name [facility] CBC WITH DIFF 2022-07-06 13:43:00 Ronna [facility] CBC WITH DIFF 2022-07-06 13:43:00 Ronna [facility] POCT GLUCOSE (AUTOMATED) 2022-07-06 13:41:00 Arun Fox Uni vers[facility] of [facility] POCT GLUCOSE (AUTOMATED) 2022-07-06 13:41:00 Arun Fox Uni vers[facility] of [facility] POCT GLUCOSE (AUTOMATED) 2022-07-06 02:44:00 Arun Fox Uni vers[facility] of [facility] POCT GLUCOSE (AUTOMATED) 2022-07-06 02:44:00 Arun Fox Uni versity of [facility] XR CHEST 1 VW 2022-07-06 01:19:00 Dalila Friend [facility] XR CHEST 1 VW 2022-07-06 01:19:00 Dalila Friend [facility] POCT GLUCOSE (AUTOMATED) 2022-07-05 23:21:00 Arun Fox Uni versity of [facility] POCT GLUCOSE (AUTOMATED) 2022-07-05 23:21:00 Arun Fox Uni versity of [facility] POCT GLUCOSE (AUTOMATED) 2022-07-05 21:23:00 Arun Fox Uni versity of [facility] POCT GLUCOSE (AUTOMATED) 2022-07-05 21:23:00 Arun Fox Uni versity of [facility] XR CHEST 1 VW 2022-07-05 21:05:00 Jesus Coffey [facility] XR CHEST 1 VW 2022-07-05 21:05:00 Jesus Coffey [facility] FUNGUS (ROUTINE) CULTURE 2022-07-05 19:43:00 Mami Gonzales [address]ity of [facility] AFB CULTURE 2022-07-05 19:43:00 Mami Gonzales [facility] FUNGUS (ROUTINE) CULTURE 2022-07-05 19:43:00 Mami Gonzales [facility] MYCOBACTERIUM TUBERCULOSIS 2022-07-05 19:43:00 Mami Gonzales [facility] CYTO BAL 2022-07-05 19:39:00 Jovana Gonzalesmiloree Valenzuela [facility] INTUBATION 2022-07-05 18:15:00 [facility] ENDOBRONCHIAL 2022-07-05 17:51:00 Jovana Gonzalesmiloree Valenzuela [facility] ULTRASOUND-TRANSBRONCHIAL Medica l Branch FNA ELECTROMAGNETIC NAVIGATION 2022-07-05 17:51:00 Mami Gonzales [facility] POCT GLUCOSE (AUTOMATED) 2022-07-05 14:19:00 Arun Fox [facility] POCT GLUCOSE (AUTOMATED) 2022-07-05 14:19:00 Arun Fox [facility] BASIC METABOLIC PANEL (NA, 2022-07-05 06:14:00 [facility] K, CL, CO2, GLUCOSE, BUN, [facility] Branch CREATININE, CA) CBC WITH DIFF 2022-07-05 06:14:00 Chang [facility] PROTHROMBIN TIME / INR 2022-07-05 06:14:00 Liz Downing [facility] ACTIVATED PARTIAL THRMPLAS 2022-07-05 06:14:[address] [facility] BASIC METABOLIC PANEL (NA, 2022-07-05 06:14:00 Liz Downing [facility] K, CL, CO2, GLUCOSE, BUN, [place] [facility] CREATININE, CA) CBC WITH DIFF 2022-07-05 06:14:00 Chang [facility] PROTHROMBIN TIME / INR 2022-07-05 06:14:00 Chang [facility] ACTIVATED PARTIAL THRMPLAS 2022-07-05 06:14:00 Liz Downing [facility] POCT GLUCOSE (AUTOMATED) 2022-07-05 03:19:00 Arun Fox Uni versity [facility] POCT GLUCOSE (AUTOMATED) 2022-07-05 03:19:00 Arun Fox Uni versity [facility] POCT GLUCOSE (AUTOMATED) 2022-07-04 22:49:00 Arun Fox Uni versity [facility] POCT GLUCOSE (AUTOMATED) 2022-07-04 22:49:00 Arun Fox Uni [facility] ACTIVATED PARTIAL THRMPLAS 2022-07-04 22:26:00 Dalila Friend [facility] ACTIVATED PARTIAL THRMPLAS 2022-07-04 22:26:00 Dalila Friend [facility] POCT GLUCOSE (AUTOMATED) 2022-07-04 17:32:00 [facility] ([facility]OMATED) 2022-07-04 17:32:00 Arun Fox Uni [facility] PROTHROMBIN TIME / INR 2022-07-04 14:45:00 Dal[facility] ACTIVATED PARTIAL THRMPLAS 2022-07-04 14:45:00 Dalila Friend [facility] PROTHROMBIN TIME / INR 2022-07-04 14:45:00 Dal[facility] ACTIVATED PARTIAL THRMPLAS 2022-07-04 14:45:00 Dalila Friend [facility] POCT GLUCOSE (AUTOMATED) 2022-07-04 14:33:00 Arun Fox [facility] PO[facility] GLUCOSE (AUTOMATED) 2022-07-04 14:33:00 Arun Fox Uni versity [facility] MAGNESIUM 2022-07-04 09:58:00 Robina Perry [facility] BASIC METABOLIC PANEL (NA, 2022-07-04 09:58:00 Robina Perry [facility] K, CL, CO2, GLUCOSE, BUN, Medica l Branch CREATININE, CA) CBC WITH DIFF 2022-07-04 09:58:00 Perry, [facility] MAGNESIUM 2022-07-04 09:58:00 Orlando [facility] BASIC METABOLIC PANEL (NA, 2022-07-04 09:58:00 Robina Perry [facility] K, CL, CO2, GLUCOSE, BUN, Medica l Branch CREATININE, CA) CBC WITH DIFF 2022-07-04 09:58:00 Orlando [facility] POCT GLUCOSE (AUTOMATED) 2022-07-04 04:10:00 Arun Fox [facility] POCT GLUCOSE (AUTOMATED) 2022-07-04 04:10:00 Arun Fox [facility] URINALYSIS 2022-07-04 04:04:00 [place] [facility] URINALYSIS 2022-07-04 04:04:00 Orlando [facility] XR CHEST 1 VW 2022-07-04 00:32:00 Orlando [facility] XR CHEST 1 VW 2022-07-04 00:32:00 [facility] PHOSPHORUS 2022-07-04 00:25:00 [place] [facility] MAGNESIUM 2022-07-04 00:25:00 [facility] HEPATIC FUNCTION PANEL 2022-07-04 00:25:00 Robina Perry [facility] ([id number]) (ALB,T.PRO,BILI [facility] Branch T,BU/BC,ALT,AST,ALK PHOS) BASIC METABOLIC PANEL (NA, 2022-07-04 00:25:00 Robina Perry [facility] K, CL, CO2, GLUCOSE, BUN, Medica l Branch CREATININE, CA) CBC WITH DIFF 2022-07-04 00:25:00 [facility] GLYCOSYLATED HEMOGLOBIN 2022-07-04 00:25:00 Orlando [facility] (A1C) [facility] PROTHROMBIN TIME / INR 2022-07-04 00:25:00 [facility] ACTIVATED PARTIAL THRMPLAS 2022-07-04 00:25:00 Robina Perry [facility] COVID-19 (ID NOW RAPID 2022-07-04 00:25:00 Robina Perry [facility] TESTING) Medical Branch LAB ONLY COVID 2022-07-04 00:25:00 Robina Perry [facility] INTERPRETATION Medical Branch PHOSPHORUS 2022-07-04 00:25:00 Robina Perry [facility] Medical [place] MAGNESIUM 2022-07-04 00:25:00 Robina Perry [facility] HEPATIC FUNCTION PANEL 2022-07-04 00:25:00 Robina Perry [facility] ([id number]) (ALB,T.PRO,BILI Medical Branch T,BU/BC,ALT,AST,ALK PHOS) BASIC METABOLIC PANEL (NA, 2022-07-04 00:25:00 Robina Perry [facility] K, CL, CO2, GLUCOSE, BUN, Medica l Branch CREATININE, CA) CBC WITH DIFF 2022-07-04 00:25:00 Robina Perry [facility] GLYCOSYLATED HEMOGLOBIN 2022-07-04 00:25:00 [facility] Branch PROTHROMBIN TIME / INR 2022-07-04 00:25:00 Robina Perry [facility] ACTIVATED PARTIAL THRMPLAS 2022-07-04 00:25:00 Robina Perry [facility] COVID-19 (ID NOW RAPID 2022-07-04 00:25:00 Robina Perry [facility] TESTING) Medical Branch LAB ONLY COVID 2022-07-04 00:25:00 Robina Perry [facility] INTERPRETATION [facility] Branch HB ECG ROUTINE & RHYTHM 2022-07-03 23:56:23 Robina Perry [facility] STRIP Medical [place] HB ECG ROUTINE & RHYTHM 2022-07-03 23:56:23 Robina Perry [facility] Medical Branch DME/SUPPLY JUSTIFICATION 2022-03-23 05:01:00 Doctor Unassigned, [facility] [place] [facility] DME/SUPPLY JUSTIFICATION 2022-01-03 05:01:00 Doctor Unassigned, [facility] [place] [facility] DME/SUPPLY JUSTIFICATION 2021-12-21 05:01:00 Doctor Unassigned, [facility] [place] [facility] DISCLOSURE AND CONSENT, 2021-08-03 06:01:00 Doctor UnassignedKasandra [facility] MEDICAL AND SURGICAL [place] [facility] Bra [facility] PROCEDURES Plan of Care Planned Activity Planned Date Details Comments Source Future Scheduled 2022-08-24 COVID-19 VACCINE (#1) [facility] Hospital Test 09:06:50 [code = COVID-19 VACCINE (#1)] Future Scheduled 2022-08-24 SHINGLES VACCINES (1 Met [facility] Test 09:06:50 of 2) [code = SHINGLES VACCINES (1 of 2)] Future Scheduled 2022-08-24 65+ PNEUMOCOCCAL Methodi Hospital Test 09:06:50 VACCINE (1 - PCV) [code = 65+ PNEUMOCOCCAL VACCINE (1 - PCV)] Future Scheduled 2022-08-24 INFLUENZA VACCINE Method is Hospital Test 09:06:50 [code = INFLUENZA VACCINE] Future Scheduled 2022-05-27 COVID-19 VACCINE (#1) [facility] Test 05:45:53 [code = COVID-19 VACCINE (#1)] Future Scheduled 2022-05-27 SHINGLES VACCINES (1 Met [facility] Hospital Test 05:45:53 of 2) [code = SHINGLES VACCINES (1 of 2)] Future Scheduled 2022-05-27 65+ PNEUMOCOCCAL Methodi [facility] Test 05:45:53 VACCINE (1 - PCV) [code = 65+ PNEUMOCOCCAL VACCINE (1 - PCV)] Future Scheduled 2022-05-27 INFLUENZA VACCINE Method is Hospital Test 05:45:53 [code = INFLUENZA VACCINE] Encounters Start End Encounter Admission Attending Care Care Encounter Source Date/Time Date/Time Type Type Clinicians Facility Department ID 2022-08-24 Outpatient SYSTEM, [facility] [id number] 16:47:39 PROVIDER Alex o n 2022-07-31 Outpatient [facility] [id number] Common 14:11:01 [facility]ly [facility] [id number] [facility] 2022-05-30 Outpatient GonzalezSTHEENATONNY [facility] [id number] Common 07:43:01 [facility] [id number] [facility] 2022-05-02 Outpatient Gonzalez, STLMLC STLMLC [id number] Common 08:50:02 Fredo [facility] 2022-01-30 Outpatient Gonzalez, STLMLC STLMLC [id number] Common 14:59:02 Fredo [facility] 2021-12-27 Outpatient Gonzalez, STLMLC STLMLC [id number] Common 08:16:03 Fredo [facility] 2021-12-26 Outpatient STLMLC STLMLC [id number] Common 15:16:04 [facility] 2022-08-25 2022-08-25 Outpatient R MAMI GONZALES [facility] 10 [id number] Univers 11:00:00 11:00:00 MAMI GONZALES i ty of [facility] 2022-08-25 2022-08-25 Travel 1.2.840.1 [id number] [id number] Univers 00:00:00 00:00:00 43961.1.1 350.1.13.41 ity of 3.412.2.7 [place].698 [place] .3.449250 084.8 .8 [facility] 2022-08-24 2022-08-24 Office Elida [facility] 1.2.840.114 [id number] Univers 09:00:00 09:40:50 Visit Mami BORRERO 350.1.13.10 i ty [facility] 4.2.7.2.686 [place] [id number] Ri dical NAL 5 [facility] 2022-08-24 2022-08-24 Outpatient R MAMI GONZALES [facility] 10 [id number] Univers 09:00:00 09:40:50 MAMI GONZALES i ty of [facility] 2022-08-24 2022-08-24 Orders Doctor ABELINO 1.2.840.114 [id number] Univers 00:00:00 00:00:00 Only Unassigned, MARY 350.1.13.10 ity of [place] [facility] 4.2.7.2.686 Joe as [id number] [facility] 009 Branch 2022-08-18 2022-08-18 Outpatient R NAGIVINICIUS DAY [facility] 1 [id number] Univers 10:00:00 10:00:00 VINICIUS LAZAR ity [facility] 2022-08-17 2022-08-17 Telephone [facility] [id number] [id number] Univers 00:00:00 00:00:00 [facility] 350.1.13.10 it y of [place] - [phone] Med ical [facility] 185 Branch 2022-08-16 2022-08-16 [facility] 1.2.840.114 [id number] Univers 14:45:00 23:59:00 Encounter Colten Trisha HEALTH 350.1.13.10 ity of CL[place]ICS 4[place] [id number] [facility] 807 Branch 2022-08-16 2022-08-16 Outpatient R [facility] [id number] Univers 10:28:35 14:44:00 ALEC ity [facility] 2022-08-16 2022-08-16 [facility] Alec [facility] 1.2.840 .114 [id number] Univers 10:28:35 14:44:00 Encounter Lucia Campos Y HEALTH 350.1.13 .10 ity of Stephanie Vergara CLINICS 4.2.7.2.686 [place] [id number] [facility] 803 Branch 2022-08-15 2022-08-15 Telephone Francis 1.2.840.1 [id number] Univers 00:00:00 00:00:00 Celratna 63001.1.1 i ty of S 3.412.2.7 [place] .3.080328 .8 [facility] 2022-08-14 2022-08-14 Travel 1.2.840.1 1.2.862.327 [id number] Univers 00:00:00 00:00:00 82236.1.1 350.1.13.41 ity of 3.412.2.7 [place].3.698 [place] .3.992491 084.8 .8 [facility] 2022-08-11 2022-08-11 Karval [facility] 1.2.438.570 [id number] Univers 00:00:00 00:00:00 Vinicius HEALTH 350.1.13.10 it y of [place] - [id number] [facility] 185 Branch 2022-08-10 2022-08-10 [facility], [facility] 1.2.840.114 [id number] Univers 07:24:02 23:59:00 Encounter Alec Y HEALTH 350.1.13.10 ity of CLINICS 4[place]2.7.2.[place] [id number] [facility] 803 Branch 2022-08-10 2022-08-10 Outpatient [facility] [id number] Univers 00:00:00 23:59:[address] [facility] 2022-08-07 2022-08-07 Case Hyacinth Hauser UNIVERS 1.2.840.114 [id number] Univers 00:00:00 00:00:00 Management Y HEALTH 350.1.13.10 ity of CL[place]ICS 4[place] [id number] [place] [id number] Branch 2022-07-31 2022-07-31 Outpatient R HYACINTH HAUSER [facility] [id number] Univers 07:33:52 23:59:[address] [facility] 2022-07-31 2022-07-31 [facility] Hyacinth Hauser UNIVERS 1.2.840.114 [id number] Univers 07:33:52 23:59:00 Encounter [facility] Y HEALTH 350.1. 13.10 ity of CL[place]ICS 4[place] [id number] [facility] 803 Branch 2022-07-28 2022-07-28 [facility] Elida UNIVERS 1.2.840.114 [id number] Univers 11:48:18 23:59:00 Encounter [facility] HEALTH 350.1.13.10 ity of CL[place] 4[place] [id number] [facility] 805 Branch 2022-07-28 2022-07-28 Outpatient R MAMI GONZALES [facility] 10 [id number] Univers 11:47:58 11:47:00 MAMI GONZALES i ty of [facility] 2022-07-28 2022-07-28 [facility] PAOLA GonzalesIT 1.2.840.114 [id number] Univers 11:00:00 11:47:00 Encounter [facility] HEALTH 350.1.13.10 ity of CLINICS 4.2.7.2.686 [place] [id number] [facility] 805 Branch 2022-07-25 2022-07-25 Outpatient R ANTIONE HERNANDEZ [facility] [id number] Univers 10:21:36 23:59:00 [facility] 2022-07-25 2022-07-25 [facility] 1.2.840.114 [id number] Univers 10:21:36 23:59:00 Encounter Antionejh BORRERO 350.1.13.10 ity of [facility] 4.2.7.2.686 [facility] [id number] [facility] 801 Branch 2022-07-21 2022-07-21 Office [facility] 1.2.840.114 [id number] Univers 11:00:00 11:30:00 Visit [facility] 350.1.13.10 it y of CANCER 4.2.7.2.686 [facility] [id number] Med ical [facility] 185 Branch 2022-07-21 2022-07-21 Outpatient R VINICIUS LAZAR [facility] 1 [id number] Univers 11:00:00 11:00:00 VINICIUS LAZAR [facility] 2022-07-21 2022-07-21 Orders Doctor ROCA 1.2.840.114 [id number] Univers 00:00:00 00:00:00 Only Unassigned, MARY 350.1.13.10 ity of [place] [facility] 4.2.7.2.686 [place] [id number] [facility] 009 Branch 2022-07-13 2022-07-13 Outpatient R MAMI GONZALES [facility] 10 [id number] Univers 10:00:00 10:55:36 MAMI GONZALES i ty of [facility] 2022-07-13 2022-07-13 Office Elida [facility] 1.2.840.114 [id number] Univers 10:00:00 10:55:36 Visit Mami BORRERO 350.1.13.10 i ty of [place].2.7.2.[place] [id number] Ri dical [facility] 085 [facility] 2022-07-13 2022-07-13 Orders Doctor ABELINO 1.2.840.114 [id number] Univers 00:00:00 00:00:00 Only Unassigned, MARY 350.1.13.10 ity of [place] [facility] 4.2.7.2.686 Joe as [id number] [facility] 009 Branch 2022-07-12 2022-07-12 Multidkristen ValenzuelaJOSE mejia 1.2.840.114 [id number] Univers 00:00:00 00:00:00 plinary Layla Freeman 350.1.13.10 i ty of [facility] 4.2.7.2.686 [place] [id number] [facility] 080 Branch 2022-07-07 2022-07-07 Transition DYLON Amos 1.2.840.114 [id number] Univers 00:00:00 00:00:00 of Care Anne Marie ORTIZ 350.1.13.10 i ty of [place].2.7.[place] [id number] [facility] 403 Branch 2022-07-03 2022-07-06 Inpatient U [facility] [id number] Univers 17:19:00 12:14:[address] [facility] 2022-07-03 2022-07-06 Hospital RAMIRO Fox 1.2.840.114 [id number] Univers 17:19:00 12:14:00 Encounter Arun HERNANDEZ 350.1.13.10 ity of HOSPITAL 4.2.7.2.686 [place] [id number] [facility] 093 Branch 2022-07-05 2022-07-05 Hospital Mami Gonzales 1.2.840.114 [id number] Univers 10:32:11 23:59:00 Encounter Arun Fox MARY 350.1.13.10 ity of HOSPITAL 4.2.7.2.686 [place] [id number] [facility] 801 Branch 2022-07-05 2022-07-05 Anesthesia RAMIRO Arambula 1.2.840.114 [id number] Univers 12:08:00 14:47:00 Event Mike Reggie HERNANDEZ 350.1.13.10 ity of HOSPITAL 4.2.7.2.686 [place] [id number] [facility] 103 Branch 2022-07-05 2022-07-05 Surgery RAMIRO Gonzales 1.2.840.114 [id number] Univers 10:30:00 12:40:00 Mami HERNANDEZ 350.1.13.10 it y of HOSPITAL 4.2.7.2.686 [place] [id number] [facility] 103 Branch 2022-07-03 2022-07-03 Office Elida AKGLORIA 1.2.840.114 [id number] Univers 11:00:00 12:03:28 Visit Mami BORRERO 350.1.13.10 i ty of [place] 4.2.7.2.[place] [id number] Ri dical NAL 085 Branch BUILDING 2022-05-15 2022-05-15 Outpatient R CHRISTINA AKGLORIA [facility] [id number] Univers 16:00:00 16:00:[address] of [facility] 2022-03-23 2022-03-23 Orders Doctor ABELINO 1.2.840.114 [id number] Univers 00:00:00 00:00:00 Only Unassigned, MARY 350.1.13.10 ity of [place] HOSPITAL 4.2.7.2.686 [place] as [id number] [facility] 009 Branch 2022-01-24 2022-01-24 Telephone [facility]RE[facility] 1.2.061.160 [id number] Univers 00:00:00 00:00:00 Shiwan [place] 350.1.13.10 i ty of [place] 4.2.7.2.[place] [id number] [address] 2022-01-03 2022-01-03 Outpatient R MAMI GONZALES [facility] 10 [id number] Univers 11:00:00 11:47:28 MAMI GONZALES i ty of [facility] 2022-01-03 2022-01-03 Office [facility] 1.2.840.114 [id number] Univers 11:00:00 11:47:28 Visit Mami BORRERO 350.1.13.10 i ty of [place] 4.2.7.2.[place] [id number] [address] 2022-01-03 2022-01-03 Telephone [facility] 1.2.630.245 [id number] Univers 00:00:00 00:00:00 Faviann GISSELL 350.1.13.10 i ty of [place] 4.2.7.2.[place] [id number] [address] 2022-01-03 2022-01-03 Orders Doctor ABELINO 1.2.840.114 [id number] Univers 00:00:00 00:00:00 Only Unassigned, MARY 350.1.13.10 ity of [place] [facility] 4.2.7.2.686 [place] [id number] [address] 2021-12-21 2021-12-21 Telephone [facility] 1.2.374.580 [id number] Univers 00:00:00 00:00:00 Shiwan [place] 350.1.13.10 i ty of [place] 4.2.7.2.[place] [id number] [address] 2021-12-21 2021-12-21 Orders Doctor ABELINO 1.2.840.114 [id number] Univers 00:00:00 00:00:00 Only Unassigned, MARY 350.1.13.10 [facility] 4.2.7.2.686 [place] [id number] [facility] [address] [place] 2021-12-19 2021-12-19 Telephone [facility]RE[facility] 1.2.355.673 [id number] Univers 00:00:00 00:00:00 Shiwan [place] 350.1.13.10 i ty of [place] 4.2.7.2.[place] [id number] Ri dic[address] 2021-12-07 2021-12-07 Telephone [facility] 1.2.778.798 [id number] Univers 00:00:00 00:00:00 Shiwan [place] 350.1.13.10 i ty of [place] 4.2.7.2.[place] [id number] [address] 2021-09-19 2021-09-19 Refill [facility] 1.2.840.114 [id number] Univers 00:00:00 00:00:00 Shiwan [place] 350.1.13.10 i ty of [place] 4.2.7.2.[place] [id number] [address] 2021-09-14 2021-09-14 Outpatient R MAMI GONZALES [facility] 10 [id number] Univers 13:59:27 23:59:00 MAMI GONZALES i ty of [facility] 2021-09-14 2021-09-14 [facility] 1.2.840.114 [id number] Univers 13:59:27 23:59:00 Encounter Mami BORRERO 350.1.13.10 ity of [place].2.7.2.[place] [id number] [facility] [address] 2021-08-26 2021-08-26 Outpatient R MAMI GONZALES [facility] 10 [id number] Univers 14:00:00 14:59:18 MAMI GONZALES i ty of [facility] 2021-08-26 2021-08-26 Office [facility] 1.2.840.114 [id number] Univers 14:00:00 14:59:18 Visit Mami BORRERO 350.1.13.10 i ty of [place] 4.2.7.2.[place] [id number] [address] 2021-08-26 2021-08-26 Outpatient R MAMI GONZALES [facility] 10 [id number] Univers 14:00:00 14:00:00 MAMI GONZALES i ty of [facility] 2021-08-26 2021-08-26 Outpatient R MAMI GONZALES [facility] 10 [id number] Univers 14:00:00 14:00:00 MAMI GONZALES i ty of [facility] 2021-08-05 2021-08-05 Refarlene Gonzales [facility] 1.2.840.114 [id number] Univers 00:00:00 00:00:00 Mami BORRERO 350.1.13.10 i ty of [place] 4.2.7.2.[place] [id number] [address] 2021-08-04 2021-08-04 Refarlene GonzalesRE[facility] 1.2.840.114 [id number] Univers 00:00:00 00:00:00 Mami BORRERO 350.1.13.10 i ty of [place] 4.2.7.2.[place] [id number] [address] 2021-08-03 2021-08-03 Orders Doctor ABELINO 1.2.840.114 [id number] Univers 00:00:00 00:00:00 Only Unassigned, MARY 350.1.13.10 ity of [place] [facility] 4.2.7.2.686 Joe as [id number] [facility] [address] 2021-07-27 2021-07-27 Telephone QUAN Gonzales 1.2.840.114 [id number] Univers 00:00:00 00:00:00 Mami [facility] 350.1.13.10 i ty [place] [phone] [facility] [address] 2021-07-25 2021-07-25 Mamadou Gonzales, [facility] 1.2.840.114 [id number] Univers 00:00:00 00:00:00 Shisaen GISSELL 350.1.13.10 i ty [place] [id number] [address] 2021-07-19 2021-07-19 [employer], [facility] Sleep Lab [facility] 1.2 .840.114 [id number] Univers 10:00:00 10:15:00 Visit Sandra Willis 350.1.13. 10 [place] 4.2.7.2.686 [facility] [phone] [facility] [address] 2021-07-19 2021-07-19 Outpatient R SANDRA WILLIS [facility] [id number] Univers 10:00:00 10:00:00 SANDRA WILLIS [facility] 2021-07-18 2021-07-18 Elena Gonzales [facility] [id number] [id number] Univers 00:00:00 00:00:00 Mami BORRERO 350.1.13.10 i ty [place] [phone] [address] 2021-07-12 2021-07-12 Cio Therapist, [facility] Respiratory [facility] 1.2.840.114 [id number] Univers 14:00:00 15:30:00 Visit Yan Zheng 350.1.13. 10 ity of [facility] 4.2.7.2.686 [facility] [phone] [facility] [address] 2021-07-12 2021-07-12 Outpatient R MARCE [facility] [id number] Univers 14:00:00 14:00:00 YAN goodman [facility] 2021-07-12 2021-07-12 Orders Doctor ROCA 1.2.840.114 [id number] Univers 00:00:00 00:00:00 Only Unassigned, MARY 350.1.13.10 ity of [place] [facility] 4.2.7.2.686 Joe as [phone] [facility] [address] 2021-07-07 2021-07-07 Hospital Elida [facility] 1.2.840.114 [id number] Univers 10:20:07 23:59:00 Encounter Mami BORRERO 350.1.13.10 it[place] [phone] [facility] [address] 2021-07-07 2021-07-07 Laboratory Only, Adc Test [facility] 1.2.840. 114 [id number] Univers 10:15:00 10:30:00 Only Jovnaa Gonzalessim BORRERO 350.1.13.10 ity of [place] 4.2.7.2.686 [facility] [phone] [facility] [address] 2021-07-07 2021-07-07 Outpatient R MAMI GONZALES [facility] 10 [id number] Univers 10:15:00 10:15:00 MAMI GONZALES i ty of [facility] 2021-07-07 2021-07-07 Office Elida [facility] 1.2.840.114 [id number] Univers 08:30:00 09:30:08 Visit Favianloree BORRERO 350.1.13.10 i ty of [place] 4.2.7.2.686 [facility] PROFESSIO [phone] [place] [id number] [facility] 2021-07-07 2021-07-07 Outpatient R MAMI GONZALES [facility] 10 [id number] Univers 08:30:00 09:30:08 MAMI GONZALES i ty of [facility] 2021-07-07 2021-07-07 Orders Doctor ABELINO 1.2.840.114 [id number] Univers 00:00:00 00:00:00 Only Unassigned, MARY 350.1.13.10 ity of [place] [facility] 4.2.7.2.686 [place] [phone] [address] Results Test Description Test Time Test Comments Results Result Comments Source Prothrombin Time / INR 2022-08-10 14:29:23 Test Item Value Reference Range Interpretation Comme nts PROTIME PATIENT (test code = 18.2 See_Comment H [Automated message] The system 5964-2) which generated this result transmitted ref erence range: 10.1 - 12.6 Sec onds. The reference range was not used to interpret this result as normal/abnormal . INR (test code = 6301-6) 1.6 Nor mal INR <1.1; Warfarin Therapeutic ran ge 2.0 to 3.0 or 2.5 to 3.5, dep ending upon the indications. Lab Interpretation (test code Abnormal = 61865-0) [facility] [id number] 14:29:23 Test Item Value Reference Range Interpretation Comments PROTIME PATIENT (test 18.2 See_Comment H [Auto mated message] code = 5964-2) The system wh ich generated this result transmitted ref erence range: 10.1 - 1 2.6 Seconds. The reference range was not used to int erpret this result as normal/abnormal . INR (test code = 6301-6) 1.6 Nor mal INR <1.1; Warfarin Therap eutic range 2.0 to 3. 0 or 2.5 to 3.5, dep ending upon the indica tions. Lab Interpretation (test Abnormal code = 20585-6) [facility] (NA, K, CL, CO2, GLUCOSE, BUN, CREATININE, CA)2022-08-10 14:15:21 Test Item Value Reference Range Interpretation Comments NA (test code = 140 mmol/L 135-145 5272992837) K (test code = 3.9 mmol/L 3.5-5.0 9367938354) CL (test code = 102 mmol/L 98-108 5834715455) CO2 TOTAL (test code = 31 mmol/L 23-31 7904267001) AGAP (test code = 7 2-16 8659034382) BUN (test code = 40 mg/dL 7-23 H 5888414227) GLUCOSE (test code = 119 mg/dL 70-110 H 0598355076) CREATININE (test code = 1.75 mg/dL 0.60-1.25 H 7871706659) CALCIUM (test code = 9.0 mg/dL 8.6-10.6 7931929342) eGFR (test code = 38.0 mL/min/1.73m2 5013831771) OSCAR (test code = OSCAR) Association of Glomerular Filtration Rate (GFR) and Staging of Kidney Disease* + --+ --+ ------+| GFR (mL/min/1.73 m2) ?| With Kidney Damage ?| ?Without Kidney Damage+ --------+ --------+ +| ?>90 ?| ?Stage one ?| ? Normal ?+ ---+ ---+ -------+| ?60-89 ?| ?Stage two ?| ? Decreased GFR ? + --+ --+ ------+| ?30-59 ?| ?Stage three ?| ? Stage three ? + --+ --+ ------+| ?15-29 ?| ?Stage four ? | ? Stage four ?+ ---+ ---+ -------+| ?<15 (or dialysis) ? ?| ?Stage five ? | ? Stage five ?+ ---+ ---+ -------+ *Each stage assumes the associated GFR level has been in effect for at least three months. ?Stages 1 to 5, with or without kidney disease, indicate chronic kidney disease. Notes: Determination of stages one and two (with eGFR >59mL/min/1.73 m2) requires estimation of kidney damage for at least three months as defined by structural or functional abnormalities of the kidney, manifested by either:Pathological abnormalities or Markers of kidney damage (including abnormalities in the composition of the blood or urine or abnormalities in imaging tests). Lab Interpretation Abnormal (test code = 56470-0) [facility] METABOLIC PANEL (NA, K, CL, CO2, GLUCOSE, BUN, CREATININE, CA)2022-08-10 14:15:21 Test Item Value Reference Range Interpretation Comments NA (test code = 140 mmol/L 135-145 4768635544) K (test code = 3.9 mmol/L 3.5-5.0 6020559867) CL (test code = 102 mmol/L 98-108 5620555560) CO2 TOTAL (test code = 31 mmol/L 23-31 1267883309) AGAP (test code = 7 2-16 4454187645) BUN (test code = 40 mg/dL 7-23 H 9235573424) GLUCOSE (test code = 119 mg/dL 70-110 H 0572726475) CREATININE (test code = 1.75 mg/dL 0.60-1.25 H 4503721043) CALCIUM (test code = 9.0 mg/dL 8.6-10.6 2988419821) eGFR (test code = 38.0 mL/min/1.73m2 0869235984) OSCAR (test code = OSCAR) Association of Glomerular Filtration Rate (GFR) and Staging of Kidney Disease* + --+ --+ ------+| GFR (mL/min/1.73 m2) ?| With Kidney Damage ?| ?Without Kidney Damage+ --------+ --------+ +| ?>90 ?| ?Stage one ?| ? Normal ?+ ---+ ---+ -------+| ?60-89 ?| ?Stage two ?| ? Decreased GFR ? + --+ --+ ------+| ?30-59 ?| ?Stage three ?| ? Stage three ? + --+ --+ ------+| ?15-29 ?| ?Stage four ? | ? Stage four ?+ ---+ ---+ -------+| ?<15 (or dialysis) ? ?| ?Stage five ? | ? Stage five ?+ ---+ ---+ -------+ *Each stage assumes the associated GFR level has been in effect for at least three months. ?Stages 1 to 5, with or without kidney disease, indicate chronic kidney disease. Notes: Determination of stages one and two (with eGFR >59mL/min/1.73 m2) requires estimation of kidney damage for at least three months as defined by structural or functional abnormalities of the kidney, manifested by either:Pathological abnormalities or Markers of kidney damage (including abnormalities in the composition of the blood or urine or abnormalities in imaging tests). Lab Interpretation Abnormal (test code = 14358-7) [facility] WITHOUT [id number] 14:04:43 Test Item Value Reference Range Interpretation Comments WBC (test code = 6690-2) 14.94 See_Comment H [A utomated message] The system [employer] generated this result transmit argelia reference range : 4.20 - 10.70 10*3/?L. The reference range was not used to interpret this result as normal/abnormal . RBC (test code = 789-8) 4.35 See_Comment [Au tomated message] The system [employer] generated this result transmit argelia reference range : 4.26 - 5.52 10* 6/?L. The reference r priscilla was not used to interpret this result as normal/abnormal . HGB (test code = 718-7) 10.0 g/dL 12.2-16.4 L HCT (test code = 4544-3) 33.4 % 38.4-49.3 L MCH (test code = 785-6) 23.0 pg 26.1-32.7 L MCV (test code = 787-2) 76.8 fL 81.7-95.6 L MCHC (test code = 786-4) 29.9 g/dL 31.2-35.0 L PLT (test code = 777-3) 504 See_Comment H [Au tomated message] The system [employer] generated this result transmit argelia reference range : 150 - 328 10*3/?L. The reference range was not used to interpret this result as normal/abnormal . MPV (test code = 9.5 fL 9.8-13.0 L 77521-2) RDW-CV (test code = 18.3 % 12.1-15.4 H 788-0) RDW-SD (test code = 50.1 fL 38.5-51.6 21332-4) NRBC x10^3 (test code = See_Comment [Au tomated message] 2811313821) The system [employer] generated this result transmit argelia reference range : 10*3/?L. The reference range was not used to interpret this result as normal/abnormal . NRBC/100 WBC (test code 0.0 See_Comment [Au tomated message] = 8745433305) The system [facility] generated this result transmit argelia reference range : 0.0 - 10.0 /100 WBC s. The reference r priscilla was not used to interpret this result as normal/abnormal . IPF % (test code = 0689814580) Lab Interpretation (test Abnormal code = 01394-8) [facility] WITHOUT [id number] 14:04:43 Test Item Value Reference Range Interpretation Comments WBC (test code = 6690-2) 14.94 See_Comment H [A utomated message] The system [facility] generated this result transmit argelia reference range : 4.20 - 10.70 10*3/?L. The reference range was not used to interpret this result as normal/abnormal . RBC (test code = 789-8) 4.35 See_Comment [Au tomated message] The system [facility] generated this result transmit argelia reference range : 4.26 - 5.52 10* 6/?L. The reference r priscilla was not used to interpret this result as normal/abnormal . HGB (test code = 718-7) 10.0 g/dL 12.2-16.4 L HCT (test code = 4544-3) 33.4 % 38.4-49.3 L MCH (test code = 785-6) 23.0 pg 26.1-32.7 L MCV (test code = 787-2) 76.8 fL 81.7-95.6 L MCHC (test code = 786-4) 29.9 g/dL 31.2-35.0 L PLT (test code = 777-3) 504 See_Comment H [Au tomated message] The system [facility] generated this result transmit argelia reference range : 150 - 328 10*3/?L. The reference range was not used to interpret this result as normal/abnormal . MPV (test code = 9.5 fL 9.8-13.0 L 60893-8) RDW-CV (test code = 18.3 % 12.1-15.4 H 788-0) RDW-SD (test code = 50.1 fL 38.5-51.6 88252-9) NRBC x10^3 (test code = See_Comment [Au tomated message] 7000155353) The system [facility] generated this result transmit argelia reference range : 10*3/?L. The reference range was not used to interpret this result as normal/abnormal . NRBC/100 WBC (test code 0.0 See_Comment [Au tomated message] = 5868627925) The system [facility] generated this result transmit argelia reference range : 0.0 - 10.0 /100 WBC s. The reference r priscilla was not used to interpret this result as normal/abnormal . IPF % (test code = 1383062147) Lab Interpretation (test Abnormal code = 91675-6) [facility] GLUCOSE (AUTOMATED)2022-07-28 18:25:33 Test Item Value Reference Range Interpretation Comments POCT GLU (test code = 5730641496) 120 mg/dL 70-110 H Lab Interpretation (test code = Abnormal 94718-9) [facility] [id number] 23:12:54 Test Item Value Reference Range Interpretation Comments Case Report (test Non-Gynecologic Cytology code = 3298595215) ?Case: [id number] ?Authorizing Provider: ?Mami Gonzales DO ? Collected: ? 07/05/2022 1339 ?Ordering Location: ? ? [facility] OR ? Received: ?07/06/2022 0913 ? Department ? Specimen: ? ?LUNG, LINGULA, BRONCHOALVEOLAR LAVAGE ? Final Diagnosis (test v4mccSXfQTAjg9ufVWKwuUZx code = 9605301169) ZzEwMzNcZnRuYmpcdWMxIHtc brKyPIbtjAlwPHTdIMZjVG4z lUzfjEm2tSjqMYSovbN1lCFq KLuqo0ztPCH2y8vernikHMWs HAvkOk8cqXDunUyoOcVnAZDf VLz1aA95TEEuuR9npSNqFHa7 XHBhcGVydzEyMjQwXHBhcGVy sTJ6WMRcTV4vsvciMPokVNvw CULgniL8YVNagJOzL5FpJHLg QP2efyozMFV8CDlqHWWvHLM6 ZyHwTYHvt5Aygoz9OpHmlJGn ZFxwbGFpblxmczIwXHBhclxi IEEuIExVTkcsIExJTkdVTEE7 MSAYO67NJS1AHGCAL2xSTxRD PCGMU1P6GYRvsfTaUNXuFIEG JIeTNRkHICEKN0IaZTAICOlK ZK8IHTBFTVfIFNzYMIAzF89C NDLNRSsjoZLsPJOoms78KPL5 VkBdb3V0YTJdXtBsOOBgBF0q kGnpNTFvGY8oEPBsT7yzhV9y rrw5NsIgPUMfGxQ0NTZiwyN0 Xkh8WYNyKTygw1ebe1RqN5Mi nSHxwGn4l2kbMVLoGaH0hOXn MAqfL8gmtbMhcXLaVXJpTSo2 sUuwOwDjMEFdv7yquyFfDcDd TWNdKRBoPKLjqWymrft7hL03 INDlbH4ovEVcMLwsuzThPrV9 NKeaMGWiCkB3GRWuuDFcDDIu L7atMGIjBPqgNRRdQOufwIUf GBN1lVigk3J3xUVwaSHvqWci EuRhLmJbHMIXk1ZrEIf6uXck Z8LxGDYfMhX9bEUsRZYmUPsw WPLyAYEctxC3gQ71UOpfxoV5 nLRiz9Vwy69xr681zG7sgWPh RZE0WPYrCJOloEAySWEnNEJ0 XAVbuFHtB7wfRCOsKF8kvzmm XMvpSRjeSEChyKC5VHNzhINq I4DzULQnVYdqXPAfsyl1ZxNl Ki5zeKGhvQquCDpro9kje0lm eBGrHec9AFLsWhWsYjduBChd e3Sew9zoLRGtnr0rLDT8oUZo xIqmh0E8aFPnLXQajMYayqSr WNHtFbC6OPnqQW3oyc27VSTp GZW0vv6zmBNgmLnnqdMybHMq JYplB4EhVBIit537JGUsT9Di CXJaw4Y6puXyNrDfIMFonWS9 bzL0LQOrJUe1fXZxvgO8tgFf zGKeU3hteX6cVGYnMC9gxbfk p0cpOLynQHxnQPUwtJD8doZ7 VIXoxMZcA5MncZ2pACJiIQnh YQQqtfw1XbWfVu6uoKKccNgg MFxzYmtwYWdlXHBnbmNvbnRc cGduZGVjXHBsYWluXHBsYWlu BBNiCHVmFfAsqNvzbLxqmW0z IjYvRoGaZCwxQO3eGTEvJ3sc pMFoQVBgOPKdY8ppQbVtbB5c aFxmMVxjZjJcZnMyMFxwYXIg SSBoYXZlIHBlcnNvbmFsbHkg dkL9uBU6YIVwKIksUKJuQOFz lSNtlt5okJtjKLTzPV8oVNOn qfQkXLjnsThhWUhvHWB4ALHe bWVudHMgbWFkZSBieSByZXNp RKFpiPGbHKCprDpyn3Zwa5Kn eIT0kU9se2sva9EzBNVvoSM0 WQ32jnD0rV8zMSLlAK2qNRIj FH2kzJAwmYWvJTUra10ebNrs cyByZXBvcnQuXHBsYWluXGYy XGZzMjhcbGFuZzEwMzNcaGlj rRclTvenGsIwJUJwTZcnB3rn MgPvFdLjSOplTBR4pU== Final Diagnosis f8mqoGNqGHTnsYKaXOBiAWmb Comment (test code = cxCsZDBjtYOaX7KvuxojWAks [id number]) KI1lRY8shTgvxYWoxUGlGEWg VxXbf0dur096fRWsy0cfVAKW ahbbvLu8qImwW45tc1I6Dorh G32rdSUaQSY5JFRkZFFhkUQl MFGoSUM7EAZelTAnQ0caYFVt QK7witrmWKmxTRfvFNMvoOQ5 TAJktLLiO2PwFNAkXGenWKVg piz4CdZuPw7xhLPphDlvMHzt RINsHSRwFWegJLKgMfHmY40b HBNsAVRzq2egLST7toNmwyHk WVp1YG6vDXZszPKemk3lpUHa NXAbLM0kUMAdtnqvubQxkFTd PFVfkcukQuWfepRsb8GdxFTy KUqpEWtuQ2YgzFAriO1yAXYd UVJmA1BimP0xTY1aEAIxMuEz tfGsuhSroARlq5XfEANuZsUa ouToIM5plAErYLdgsBsavnV5 pZFiwZkrsOsjLIuzImtxjK9j fRdjzn6gMj4ljGIudNhoGZ73 IGNlbGxzIGFyZSBpZGVudGlm aWVkLlxwYXJ9 Clinical Information Lung mass [R91.8]Stage 3 (test code = severe COPD by GOLD [id number]) classification [J44.9]KE (obstructive sleep apnea) [G47.33] Gross Description f9kshMShHSRjgLSBYHJrZAGu (test code = AK6ocSadfTp9uLwcTKYpzjY5 8108441487) fJVbHAtkx7abRFH6x0hjpnCV ClxkZWZmMVxwYXBlcncxMjI0 OMdgGYCugxdaCEw6RXtzCZVb wXL6KESgfWBhY3VrLXQhJM1d qla5NPP3ZCdoPJVlUyF3TXWa KbItNldfCTx8SWTdgmS8Sby2 QSVuXFHwvANgm3S9YPcmhmjj LGPlmVJyJ524KFn8PUFhgL2g jSBcY6otYMNeOPqyFDGeMOba iYRbSSa2YKcdv1MtqYAlHQeo eKWrGJLSOkkjGmolxFqnv6Yt dCBcXGlkIDUxMDAwIFxcbmgg MHd7SJZqYPlrmTNnBA6jrXrq SkjlnYssf1BlwFSnWJiiTIGx ZFDpUVmnZIDjOH2CNdMdMCV2 Ojl9SMGpAMq5CNe8RO6MWvAq EWLiKPLkQXg1ANTwKHi3WDlu UL8KFZS6OiX7Nad3QQMmVJEc DgEpWDb8XMGoUDjfMBYtpFBo AMbiMcLkNIQiVSpblBEpNR9f fVxwbGFpblxmczIwXHBhciAN ClxwbGFpblxlcGljTmVzdERv YzEgDQpcbHRycGFyXGxpbjBc cmluMCANClxsdHJjaFxmczIy XHBhciANCkExLiAgTFVORywg QYlTE2ZYADixMwWSIyKQL3OH VkVPTEFSIExBVkFHRVxwYXIg BIlmX7GfDJBkLjPnOjMkXDf0 NVNtBePtg4proBMvYjNrL7Ty lgZfDmVijG0eBD31eJ8xKLTh Mgf8lHUezZFpIF8XFGNweNJt PBEkAcLaoWtqKWIjZUI4pO0h aTnnAQGhFOPoonZ1lP2tgogy AMXYn38yvk23b5h5UNXoVCWm IFBhcGFuaWNvbGFvdSBzdGFp bmVkKVxjZjBcZnMyMiAgDQpc TJAsV80uu1BIv0KjBWUms8uo lOyua3XpjQPjZOwcDCRfxHKr HNqfdT7jJyNmg0mftTd7UKza hvH7JEKpwx1vnUebqI7cXNpt i0ovDZA9IPBovTIewSGrLWjn nQgfpI2tBfNwZft9WZpoJTEc Y1SkS9InhfA8RGZxEWguEYPi MTYgDQp9 Disclaimer (test code v1dfjSYqUNCbm5drQSMriZYt = [id number]) ZzEwMzNcZnRuYmpcdWMxIHtc taFyYSxhv3AvY3OzFuJbBXek bnNpXGRlZmxhbmcxMDMzXGZ0 tgPbTWOlOUvlADOoNWlaZv7p pEVxiPxuRsFpGKZgi2dlvnKX LSojIqJkP799PYErAAjan7bu d0KqPKMfyBSwt9M3SIUDujmy mBw8oKxnU62pk6R2GcgkK8ii ZQSpCBRnF1KpFZ2uYUXlObf4 CXS5FJL7DLTrRRRfT0KdZS3c YUPojFCrAIv8u2slqErqFTFt CZV9e3uaXEjugaSrLP4lyp4y nWw5i4ofsaRkQDUmWTRvtCWL WBBgJ1JiuZdtWm6vaWa1oFlx IuxkEUF5Feu3CI6mfm03rqo4 lLlbQGAebemdZbY3EXjnIYAj ybcvXAf0LPrlHEYnmXV5UHWy jJNrV0KzMITiIC5jkja5INC9 WThnAKVgBmV2RCEkbOJvALMq ySieOBeom925RSK7VeIlHP4m M7See0O2uE2poVKwBZMchCMe RfFfAXXtki8ozXHhMYvgg2Zr GXM4dqQ5mUSfbBIdGGOkOU00 Mfsfz5HuXlefa3BtR08csES2 RRfrv7osTD8jIaG6ffXyBPux u4zhnW9wPeT9QFqqYM7bQX7c AVKcjR7chrbvGIGzDbTgufdq SSWsrXnjlwWtYt5hfFuxDCJ7 GMguF5yjaW7nMrR9BZtyH9db xP0mIQx2KIvwvIX7GYFgeZ8s GJ9oyhrlo9tbKBviTAsmTEZn wgR2kiM2YTIosWOpT2YrkE7q KBGrHP3ooptko0bjOCT2EXuu LFWpFUD8VbJyZURpg4Lwppx1 DbWmb1TkfJYbMMqaF48dt408 HGTdijPtI4fnmCDlkyzmkNFl iybgTVphcuU4PNAmnvPoh2Mm ELCkTKE5TGneQRkdrYQfGZIj rTplj5ctL9XezZZdUBTwQSxu XGYxXGZzMjBcbGFuZzEwMzNc aGljaFxmMVxkYmNoXGYxXGxv T0coMyDdS4AyEDVpNcSjrACv N4cwWXgvcrGsZMPfxbDkhWY2 RRijL8c3SMTznoLreJe0hkXf JlVvADXsFWZ0QDnnvRVlYHIi k5JxfboptCEsVp0dyQPaMUQk bQ4eEQXgZJIxUEtqEE5knCh5 DDFKeZKpxXPlGvSFUBKoYB15 ptLvUXNLchtdi0A8JIqoGFNx y7WiuKEmV8aai6LnPMCei34r CW4mk7T5z6gpNSJ0MT9uy9Hp WSLuzFYaoDZsYZCvk1Osppdg j5MaWRQvjeJad7WkPHJemqVc cSFxIFZppgKjjd3olgClVCUv XPYyB4VouljkeDrqoyDtJYWu ll3ltuEtGVC2PBTSRXLsKBMs k2MsnE1ilPTJWLL0xTXwlr3v oeKEzSLqLIAcxk61DRNjVR9q J1ihGPNeRHCdavWohKLfj1Xb TKXryDL8tYEzRQ3PMbUBg03b IGFuZCBEcnVnIEFkbWluaXN0 sdS6aD6bSQdFDYRoOks+IFRo DCQUOBYsAO5zkvBjb3LeqfWl gDvsGDCtcXIcl7FduVVgb1Rz rXkwd5MxsXOzvCThRD6nMUQv clxwYXIgVVRNQiBMYWJvcmF0 v2IrCBAeHSUmRVP9fTrzohk5 WLOfyT6kAELuV2rydvyhDQea QBFam5LgwG2fdSZPoOAee6Np lADeqAYOpBVvKG5tzfKoRFwN WHyERXA9wmVzQEHby6BeDRdp F2ifH26frNovqVr4mHP4KJB3 mM3oKip+IFxwYXJccGFyIEFw eNMybMAjBBMizBqokpAaZ9Uv bwIjwS9yrKHnokFgVS8vVV8h U9D6wOPwIZSauvRje2pyJYzp dmUgYmVlbiByZXZpZXdlZCBm c6SoZAgeFLU8XGpbvsGvbdKm dWRpbmcgSCZFLCBTcGVjaWFs SKI2MJdwdyKgwnWeTJ3xlF8k wZavoH0qzIKixSY5oozwIRJa YYCxgTayVFNtUH8ovLIsDXTi zxQTmGvxlWElzZ2aU7ClCVIv QBEgvd4kKFEabC5qQLstr0Cw jwdaPIOuFYEbCTOnubLghv8e HOVusDXSIU6TVOtcrEGfn9Cd pgGnL2jSGQE0SFSbWwVuZdgs SRSvwNFxhXUxUXImqv04RFHp rR5rxBauBFUmsG0uaA6vwPhd tR8hYvNyLoZcURifZH6jMOFx H8mhiRZfCJYfTXEhW4sfXjCx jK3ttFntBHjnMaKuOmZuFYrk YXJ9fQ== Embedded Images (test code = 9080580757) [facility] 2022-07-06 19:24:53 Test Item Value Reference Range Interpretation Comments Mycobacterium Negative Negative tuberculosis DNA (test code = 31109-5) OSCAR (test code = OSCAR) This is a qualitative PCR assay used for the detection of Mycobacterium tuberculosis complex (MTB-complex) DNA and possible rifampin resistance associated with a mutation in the rpoB gene. ?Its intended use is on specimens from patients for whom there is clinical suspicion of tuberculosis and have not received three or more days of therapy. ? This assay is not indicated for use on patients being treated with antituberculosis drugs either to determine bacteriologic cure or to monitor response to therapy. Because the detection of MTB-complex is dependent on the number of organisms present in the sample, accurate results are dependent on proper specimen collection, handling, and storage. A negative Mycobacterium tuberculosis DNA result indicates that the MTB-complex target was not detected. ?A negative result does not exclude the possibility of isolating MTB-complex. A positive Mycobacterium tuberculosis DNA result indicates the MTB-complex target was detected. ?A positive result does not necessarily indicate the presence of viable organism. An indeterminant Mycobacterium tuberculosis DNA result indicates the presence or absence of MTB-complex cannot be determined. A negative rifampin resistant result indicates that a mutation in the rpoB gene was not detected. A positive rifampin resistant result indicates that a mutation in the rpoB gene was detected indicating possible resistance (see culture susceptibility for confirmation). An indeterminant rifampin resistant result indicates that the presence or absence of a mutation in the rpoB gene cannot be determined. Method performance specifications have been established for these specimen types: sputum, bronchial washing/lavage, tissue, and CSF. This assay is used in conjunction with an AFB culture. ?See culture result for additional information. Lab Interpretation Normal (test code = 57850-1) [facility] GLUCOSE (AUTOMATED)2022-07-06 13:42:42 Test Item Value Reference Range Interpretation Comments POCT GLU (test code = 118 mg/dL 70-110 H Notifi ed Provider [id number]) Lab Interpretation (test Abnormal code = 59172-6) [facility] GLUCOSE (AUTOMATED)2022-07-06 13:42:42 Test Item Value Reference Range Interpretation Comments POCT GLU (test code = 118 mg/dL 70-110 H Notifi ed Provider [id number]) Lab Interpretation (test Abnormal code = 56683-0) [facility] GLUCOSE (AUTOMATED)2022-07-06 02:45:42 Test Item Value Reference Range Interpretation Comments POCT GLU (test code = 1847878115) 144 mg/dL 70-110 H Lab Interpretation (test code = Abnormal 75615-3) [facility] GLUCOSE (AUTOMATED)2022-07-06 02:45:42 Test Item Value Reference Range Interpretation Comments POCT GLU (test code = 1789131965) 144 mg/dL 70-110 H Lab Interpretation (test code = Abnormal 22257-0) [facility] GLUCOSE (AUTOMATED)2022-07-05 23:22:29 Test Item Value Reference Range Interpretation Comments POCT GLU (test code = 107 mg/dL 70-110 Notifi ed Provider [id number]) Lab Interpretation (test Normal code = 39133-7) [facility] GLUCOSE (AUTOMATED)2022-07-05 23:22:29 Test Item Value Reference Range Interpretation Comments POCT GLU (test code = 107 mg/dL 70-110 Notifi ed Provider [id number]) Lab Interpretation (test Normal code = 48735-1) [facility] GLUCOSE (AUTOMATED)2022-07-05 21:25:00 Test Item Value Reference Range Interpretation Comments POCT GLU (test code = 7788364277) 111 mg/dL 70-110 H Lab Interpretation (test code = Abnormal 92517-2) [facility] GLUCOSE (AUTOMATED)2022-07-05 21:25:00 Test Item Value Reference Range Interpretation Comments POCT GLU (test code = 7083921846) 111 mg/dL 70-110 H Lab Interpretation (test code = Abnormal 10468-0) [facility] GLUCOSE (AUTOMATED)2022-07-05 14:21:15 Test Item Value Reference Range Interpretation Comments POCT GLU (test code = 111 mg/dL 70-110 H Notifi ed Provider [id number]) Lab Interpretation (test Abnormal code = 71674-2) [facility] GLUCOSE (AUTOMATED)2022-07-05 14:21:15 Test Item Value Reference Range Interpretation Comments POCT GLU (test code = 111 mg/dL 70-110 H Notifi ed Provider [id number]) Lab Interpretation (test Abnormal code = 49335-6) [facility] GLUCOSE (AUTOMATED)2022-07-05 03:20:33 Test Item Value Reference Range Interpretation Comments POCT GLU (test code = 3353838476) 107 mg/dL 70-110 Lab Interpretation (test code = Normal 01808-1) [facility] GLUCOSE (AUTOMATED)2022-07-05 03:20:33 Test Item Value Reference Range Interpretation Comments POCT GLU (test code = 7159627104) 107 mg/dL 70-110 Lab Interpretation (test code = Normal 68896-4) [facility] GLUCOSE (AUTOMATED)2022-07-04 22:50:59 Test Item Value Reference Range Interpretation Comments POCT GLU (test code = 114 mg/dL 70-110 H Notifi ed Provider [id number]) Lab Interpretation (test Abnormal code = 96333-1) [facility] GLUCOSE (AUTOMATED)2022-07-04 22:50:59 Test Item Value Reference Range Interpretation Comments POCT GLU (test code = 114 mg/dL 70-110 H Notifi ed Provider [id number]) Lab Interpretation (test Abnormal code = 06958-8) [facility] GLUCOSE (AUTOMATED)2022-07-04 17:33:52 Test Item Value Reference Range Interpretation Comments POCT GLU (test code = 141 mg/dL 70-110 H Notifi ed Provider [id number]) Lab Interpretation (test Abnormal code = 58107-7) [facility] GLUCOSE (AUTOMATED)2022-07-04 17:33:52 Test Item Value Reference Range Interpretation Comments POCT GLU (test code = 141 mg/dL 70-110 H Notifi ed Provider [id number]) Lab Interpretation (test Abnormal code = 12122-8) [facility] GLUCOSE (AUTOMATED)2022-07-04 14:34:40 Test Item Value Reference Range Interpretation Comments POCT GLU (test code = 123 mg/dL 70-110 H Notifi ed Provider [id number]) Lab Interpretation (test Abnormal code = 46811-4) [facility] GLUCOSE (AUTOMATED)2022-07-04 14:34:40 Test Item Value Reference Range Interpretation Comments POCT GLU (test code = 123 mg/dL 70-110 H Notifi ed Provider [id number]) Lab Interpretation (test Abnormal code = 23836-0) [facility] GLUCOSE (AUTOMATED)2022-07-04 04:30:22 Test Item Value Reference Range Interpretation Comments POCT GLU (test code = 9829872953) 146 mg/dL 70-110 H Lab Interpretation (test code = Abnormal 42145-4) [facility] GLUCOSE (AUTOMATED)2022-07-04 04:30:22 Test Item Value Reference Range Interpretation Comments POCT GLU (test code = [id number]) 146 mg/dL 70-110 H Lab Interpretation (test code = Abnormal 42998-7) [facility]"
--- NOTE | 2022-08-28 15:06 | RAD REPORT ---
EXAM DESCRIPTION: Darnell Single View08/28/2022 2:43 pm CLINICAL HISTORY: Shortness of breath COMPARISON: June 2022 FINDINGS: Left basilar lung opacity without obvious change Pulmonary venous congestion suspected Heart is mildly enlarged Please refer to the CT chest report June 30 2022 regarding the left lung finding
[2022-08-28 15:10] LABS: Protime INR 2.2
[2022-08-28 15:25] LABS: Potassium 3.6 mEq/L (3.5-5.1); Troponin High Sensitivity 8.3 pg/mL (<58.9)
[2022-08-28 15:31] LABS: Absolute Lymphocytes (CBC) 1.3 K/uL (0.7-4.9); Hematocrit 34.9 % (39.6-49.0); Lymphocytes % 9.9 % (15.3-44.8); MCV 73.7 fL (80-100); MPV 7.7 fL (7.6-11.3); RBC Red Blood Cell Count 4.73 M/uL (4.33-5.43)
--- NOTE | 2022-08-28 16:02 | EDPHYS ---
Physician Documentation [facility] Name: Ren Owusu Age: 77 yrs Sex: Male : 1945 Arrival Date: 08/28/2022 Time: 13:39 Bed 8 Private MD: ED Physician Shawn Aguirre HPI: 08/28 13:49 This 77 yrs old Male presents to ER via Unassigned with complaints of Feet bs3 Swelling. 13:49 77yo hx of afib, chf, ckd hx of pulm edema, lung biopsy presents with increased bs3 swelling in his legs, progssive over last week, seen Dr. Partida who advised him to go in. No fever or chills, no sig chest pain. No nausea, or vomiting. . Historical: - Allergies: 14:10 No Known Allergies; aa5 - PMHx: 14:10 Atrial fibrillation; Hypercholesterolemia; Hypertensive disorder; aa5 - Immunization history:: Adult Immunizations unknown. - Social history:: Smoking status: Patient denies any tobacco usage or history of. ROS: 13:49 Constitutional: Negative for fever, chills bs3 13:49 All other systems are negative. Exam: 13:49 Constitutional: This is a well developed, well nourished patient who is awake, alert, bs3 and in no acute distress. Head/Face: Normocephalic, atraumatic. Eyes: Pupils equal round and reactive to light, extra-ocular motions intact. Lids and lashes normal. ENT: mmm, no posterior phyarngeal erythema Chest/axilla: Normal chest wall appearance and motion. Nontender with no deformity. No lesions are appreciated. Cardiovascular: irregular, no tachycardia Respiratory: rhonchi b/l, no sig resp distress Abdomen/GI: Soft, non-tender, no rebound or guarding Skin: Warm, dry with normal turgor. Normal color with no rashes, no lesions, and no evidence of cellulitis. MS/ Extremity: 3+ pitting edema b/l Neuro: Awake and alert, GCS 15, oriented to person, place, time, and situation. Cranial nerves II-XII grossly intact. Motor strength 5/5 in all extremities. Sensory grossly intact. Vital Signs: 14:05 BP 125 / 68; Pulse 77; Resp 18 S; Temp 97.9(TE); Pulse Ox 94% on R/A; Weight 120.2 kg aa5 (R); Height 5 ft. 10 in. (R); 16:38 BP 125 / 82; Pulse 78; Resp 18; Pulse Ox 97% on R/A; Pain 0/10; mb9 14:05 Body Mass Index 38.02 (120.20 kg, 177.8 cm) aa5 16:38 Pain Scale: Adult mb9 MDM: 13:44 Patient medically screened. bs3 13:51 Differential diagnosis: Anemia asthma, CHF exacerbation, Chronic Obstructive Pulmonary bs3 Disease renal failure, pulm edema. Data reviewed: vital signs, nurses notes. ED course: We will check labs we will do serial exams will give Lasix. 15:57 ED course: X-ray consistent with fluid overload as interpreted by myself We will give bs3 Lasix Discussed with Dr. Blue who recommended admission for IV diuresis. ED course: ecg afib [address] elevation or depression. 08/28 13:49 Order name: Basic Metabolic Panel; Complete Time: 15:33 bs3 08/28 13:49 Order name: CBC with Diff; Complete Time: 15:33 bs3 08/28 13:49 Order name: NT PRO-BNP; Complete Time: 15:33 bs3 08/28 13:49 Order name: PT-INR; Complete Time: 15:15 bs3 08/28 13:49 Order name: Troponin HS; Complete Time: 15:33 bs3 08/28 15:44 Order name: SARS RAPID iw 08/28 18:27 Order name: Phosphorus EDMS 08/28 18:27 Order name: Magnesium EDMS 08/28 13:49 Order name: XRAY Chest (1 view); Complete Time: 15:15 bs3 08/28 13:49 Order name: EKG; Complete Time: 13:50 bs3 08/28 13:49 Order name: Cardiac monitoring; Complete Time: 15:42 bs3 08/28 13:49 Order name: EKG - Nurse/Tech; Complete Time: 16:19 bs3 08/28 13:49 Order name: IV Saline Lock; Complete Time: 15:02 bs3 08/28 13:49 Order name: Labs collected and sent; Complete Time: 15:02 bs3 08/28 13:49 Order name: O2 Per Protocol; Complete Time: 15:42 bs3 08/28 13:49 Order name: O2 Sat Monitoring; Complete Time: 15:42 bs3 Administered Medications: 16:37 Drug: Furosemide IVP 60 mg Route: IVP; Site: left antecubital; mb9 16:52 Follow up: Response: No adverse reaction mb9 Disposition Summary: 08/28/22 16:01 Hospitalization Ordered Hospitalization Status: Inpatient Admission bs3 Provider: Ashu Bond bs3 Location: Telemetry/MedSurg (Inpatient) bs3 Condition: Fair bs3 Problem: an acute exacerbation bs3 Symptoms: have worsened bs3 Bed/Room Type: Standard bs3 Room Assignment: 430(08/28/22 18:31) eb Diagnosis - Acute on chronic systolic (congestive) heart failure bs3 Forms: - Medication Reconciliation Form bs3 - SBAR form bs3 Signatures: Dispatcher [employer] Luz Harris RN RN aa5 Taryn Almendarez Brandon, MD MD bs3 Coco Velasco RN RN mb9 Corrections: (The following items were deleted from the chart) 18: 16:01 bs3 eb
--- NOTE | 2022-08-28 16:02 | ER ---
Nurse's Notes [facility] Name: Ren Owusu Age: 77 yrs Sex: Male : 1945 Arrival Date: 08/28/2022 Time: 13:39 Bed 8 Private MD: Diagnosis: Acute on chronic systolic (congestive) heart failure Presentation: 08/28 14:05 Chief complaint: Spouse and/or significant other states: "on June he had a chest aa5 x-ray and it showed pulmonary edema and we saw Dr. Blue on Sunday and he said to come here and get IV Lasix for his fluid". Reports radha leg swelling. 14:05 Coronavirus screen: At this time, the client does not indicate any symptoms associated aa5 with coronavirus-19. Ebola Screen: Patient denies travel to an Ebola-affected area in the 21 days before illness onset. Initial Sepsis Screen: Does the patient meet any 2 criteria? No. Patient's initial sepsis screen is negative. Risk Assessment: Do you want to hurt yourself or someone else? Patient reports no desire to harm self or others. 14:05 Acuity: MICHAEL 3 aa5 14:05 Method Of Arrival: Wheelchair aa5 14:05 Initial Sepsis Screen: Does the patient meet any 2 criteria? No. Patient's initial aa5 sepsis screen is negative. Does the patient have a suspected source of infection? No. Patient's initial sepsis screen is negative. 14:05 Onset of symptoms was 2022. aa5 Historical: - Allergies: 14:10 No Known Allergies; aa5 - PMHx: 14:10 Atrial fibrillation; Hypercholesterolemia; Hypertensive disorder; aa5 - Immunization history:: Adult Immunizations unknown. - Social history:: Smoking status: Patient denies any tobacco usage or history of. Screenin:37 [facility] ED Fall Risk Assessment (Adult) History of falling in the last 3 months, mb9 including since admission No falls in past 3 months (0 pts) Confusion or Disorientation No (0 pts) Intoxicated or Sedated No (0 pts) Impaired Gait No (0 pts) Mobility Assist Device Used No (0 pt) Altered Elimination No (0 pt) Score/Fall Risk Level 0 - 2 = Low Risk Oriented to surroundings, Maintained a safe environment, Educated pt \\T\\ family on fall prevention, incl call for assistance when getting out of bed. Abuse screen: Denies threats or abuse. Nutritional screening: No deficits noted. Tuberculosis screening: No symptoms or risk factors identified. Assessment: 15:40 Reassessment: pt brought back to ER room. mb9 16:00 General: Appears in no apparent distress. comfortable, Behavior is calm, cooperative, mb9 appropriate for age. Pain: Denies pain. Neuro: Level of Consciousness is awake, alert, obeys commands, Oriented to person, place, time, situation, Appropriate for age. Cardiovascular: Denies chest pain, Heart tones S1 S2 present Pulses are 1+ in right posterior tibial artery, right dorsalis pedis artery, left posterior tibial artery and left dorsalis pedis artery Edema is 1+ to left foot, left toes, right foot and right toes. Respiratory: Reports shortness of breath on exertion Airway is patent Respiratory effort is even, unlabored, Respiratory pattern is regular, symmetrical. GI: Abdomen is round non-distended. : No signs and/or symptoms were reported regarding the genitourinary system. EENT: No signs and/or symptoms were reported regarding the EENT system. Derm: Skin is pink, warm \\T\\ dry. Reports. Musculoskeletal: Range of motion: intact in all extremities, Swelling present in right foot and left foot. 17:55 Reassessment: See [facility] for further charting. mb9 Vital Signs: 14:05 BP 125 / 68; Pulse 77; Resp 18 S; Temp 97.9(TE); Pulse Ox 94% on R/A; Weight 120.2 kg aa5 (R); Height 5 ft. 10 in. (R); 16:38 BP 125 / 82; Pulse 78; Resp 18; Pulse Ox 97% on R/A; Pain 0/10; mb9 14:05 Body Mass Index 38.02 (120.20 kg, 177.8 cm) aa5 16:38 Pain Scale: Adult mb9 ED Course: 13:39 Patient arrived in ED. rg4 13:47 Shawn Aguirre MD is Attending Physician. jmm 14:05 Arm band placed on. aa5 14:09 Triage completed. aa5 14:45 XRAY Chest (1 view) In Process Unspecified. EDMS 15:02 Inserted saline lock: 20 gauge in left antecubital area, using aseptic technique. Blood zm collected. 15:02 Basic Metabolic Panel Sent. zm 15:02 CBC with Diff Sent. zm 15:02 NT PRO-BNP Sent. zm 15:03 PT-INR Sent. zm 15:03 Troponin HS Sent. zm 15:40 Coco Velasco, RN is Primary Nurse. mb9 15:41 Placed in gown. Bed in low position. Call light in reach. Side rails up X 1. Client mb9 placed on continuous cardiac and pulse oximetry monitoring. NIBP monitoring applied. engine monitor on. 15:50 EKG done, by ED staff, reviewed by Shawn Aguirre MD. mb9 16:01 Ashu Bond MD is Hospitalizing Provider. bs3 20:03 Patient admitted, IV remains in place. mb9 Administered Medications: 16:37 Drug: Furosemide IVP 60 mg Route: IVP; Site: left antecubital; mb9 16:52 Follow up: Response: No adverse reaction mb9 Medication: 15:42 VIS not applicable for this client. mb9 Outcome: 16:01 Decision to Hospitalize by Provider. bs3 20:03 Admitted to Tele room 430, with chart, Report called to PEEWEE Xie 20:03 Condition: stable 20:03 Instructed on the need for admit. 20:04 Patient left the ED. mb9 Signatures: Dispatcher [employer] EDMS Scar Orellana PA PA jmm Calderon, Audri, RN RN aa5 Anabella Lay Zaina zm Stein, Brandon, MD MD bs3 Coco Velasco, RN RN mb9
[2022-08-28 16:21] LABS: SARS-CoV-2 Antigen Rapid Res Negative (Negative)
[2022-08-28] MEDS ORDERED: FUROSEMIDE 40 MG/4 ML VIAL ONE (16:36)
[2022-08-28] MEDS ORDERED: FUROSEMIDE 20 MG/ 2ML VIAL ONE (16:36)
[2022-08-28] MEDS ORDERED: ACETAMINOPHEN 325 MG TABLET PO PRN (17:27)
[2022-08-28] MEDS ORDERED: ONDANSETRON 4 MG/2 ML VIAL IV PRN (17:30)
--- NOTE | 2022-08-28 17:34 | P.HP ---
Certification for Inpatient Patient admitted to: Inpatient With expected LOS: >2 Midnights Patient will require the following post-hospital care: None Practitioner: I am a practitioner with admitting privileges, knowledge of patient current condition, hospital course, and medical plan of care. Services: Services provided to patient in accordance with Admission requirements found in Title 42 Section 412.3 of the Code of Federal Regulations Patient History Date of Service: 08/28/22 Reason for admission: BLE edema History of Present Illness: Patient is a 77-year-old male with a past medical history significant for hypertension, hyperlipidemia, atrial fibrillation, chronic back pain COPD, BPH, peripheral neuropathy, Lung Cancer, Left Renal Mass who presents with complaint of BLE edema that has been ongoing for the past 3 months. Patient reported that he was placed on a diuretic 1 month ago and has been complaint with medication. Patient was recently diagnosed with Lung Cancer per spouse report and has a follow up appointment with [facility]. Patient also reports left flank pain which patient attributes to a left renal Mass\Tumor which he was told by his doctors that mass could be cancerous. Patient reported associated signs and symptoms of shortness of breath with exertion, fatigue and weakness. Patient denies any other signs or symptoms. Symptoms are aggravated or relieved by nothing. Patient followed up with his falafel cart cook and was referred to the ER for IV diuresis. Allergies No Known Allergies Allergy (Unverified 06/28/22 11:50) Home Medications: Apixaban [Eliquis] 5 mg PO BID 06/28/22 Finasteride 5 mg PO DAILY 06/28/22 Gabapentin 300 mg PO BEDTIME 06/28/22 Metformin ER [Glucophage ER*] 500 mg PO BEDTIME 06/28/22 Pravastatin [Pravachol*] 80 mg PO DAILY 06/28/22 Amiodarone HCl [Cordarone*] 200 mg PO BID #60 tab 07/01/22 Hydrocodone Bit/Acetaminophen [Hydrocodon-Acetaminoph 7.5-325] 1 each PO Q6HP PRN 08/28/22 Magnesium Oxide [Magnesium] 400 mg PO DAILY 08/28/22 Metoprolol Tartrate [Lopressor*] 50 mg PO BID 08/28/22 Potassium Chloride 20 meq PO DAILY 08/28/22 Spironolactone 12.5 mg PO DAILY 08/28/22 Torsemide [Demadex] 20 mg PO BIDP PRN 08/28/22 - Past Medical/Surgical History Diabetic: No -: COPD -: HTN -: HLD -: AFib -: CKD III with proteinuria followed by Dr. Bass -: CLBP -: Left Lung Mass 06-28-22 -: bilateral heel sx -: left knee replacement - Family History Family History: Reviewed- Non-Contributory - Social History Smoking Status: Former smoker Alcohol use: No CD- Drugs: Yes Caffeine use: Yes Place of Residence: Home Review of Systems General: Weakness, Other (Fatigue) Eyes: Unremarkable ENT: Unremarkable Respiratory: SOB with Excertion Cardiovascular: Unremarkable Gastrointestinal: Unremarkable Genitourinary: Unremarkable Musculoskeletal: Pedal edema Integumentary: Unremarkable Neurological: Weakness Lymphatics: Unremarkable Physical Examination - Physical Exam General: Alert, In no apparent distress, Oriented x3, Cooperative HEENT: Atraumatic, PERRLA, Mucous membr. moist/pink, EOMI, Sclerae nonicteric Neck: Supple, 2+ carotid pulse no bruit, No LAD, Without JVD or thyroid abnormality Respiratory: Diminished Cardiovascular: No murmurs, Edema, Irregular heart rate/rhythm Capillary refill: <2 Seconds Gastrointestinal: Normal bowel sounds, Soft and benign, Non-distended, No tenderness Musculoskeletal: No clubbing, No tenderness, Swelling Integumentary: No rashes, No breakdown, No significant lesion Neurological: Normal speech, Normal tone, Normal affect Lymphatics: No axilla or inguinal lymphadenopathy - Studies Laboratory Data (last 24 hrs) 08/28/22 14:56: PT 24.2 H, INR 2.20 08/28/22 14:56: WBC 13.40 H, Hgb 10.7 L, Hct 34.9 L, Plt Count 524 H 08/28/22 14:56: Sodium 135 L, Potassium 3.6, BUN 41 H, Creatinine 1.95 H, Glucose 137 H Assessment and Plan - Plan --Acute on chronic diastolic CHF exacerbation. [id number]. Chest Xray indicates Findings of suspected Pulmonary venous congestion and midly enlarged Heart. Continue diuresis with Lasix. Daily weight. Strict I/O. falafel cart cook consulted. Will await further recommendations. --Afib. Continue Eliquis. Telemetry to monitor for any malignant arrhythmia. --Lung Cancer. Recent diagnosis per family report. Patient has a follow appoin tment at [facility]. Continue supportive care. --Acute on chronic COPD exacerbation. Patient started on neb treatment with Atrovent\albuterol. Continue O2 therapy prn. --Chronic back pain. We will manage pain with current medication regimen. --Peripheral neuropathy. Continue home medication. --Class II obesity. Likely secondary to sedentary trend lifestyle and excess calories intake. Patient counseled on weight reduction, diet and exercise therapy. --HILDA on CKD 3. Patient has baseline CKD 3 status. Nephrology consulted. Will await further recommendations from curtain cleaner. -- Hypertension. Stable. Continue home medications. -- DVT prophylaxis with Eliquis. Discharge Plan: Home Plan to discharge in: Greater than 2 days - Advance Directives Does patient have a Living Will: Yes Does patient have a Durable POA for Healthcare: No - Code Status/Comfort Care Code Status Assessed: Yes Physician Review: Patient Assessed, Agree with Above Assessment and Plan Critical Care: No
[2022-08-28 17:59] VITALS: BMI 37.8
[2022-08-28] MEDS ORDERED: ENOXAPARIN 40 MG/0.4 ML SQ SCH (18:00)
[2022-08-28 18:27] LABS: Magnesium 2.1 mg/dL (1.6-2.4); Phosphorus 2.5 mg/dL (2.5-4.9)
[2022-08-28] MEDS ORDERED: ENOXAPARIN 40 MG/0.4 ML SQ ONE (18:59)
[2022-08-28] MEDS ORDERED: HYDRALAZINE HCL 20 MG/ML VIAL IV PRN (20:02)
[2022-08-28] MEDS: INSULIN -REGULAR HUMAN 50 UNIT/0.5 ML ML SQ SCH (21:00)
[2022-08-28] MEDS: APIXABAN 5 MG TABLET PO SCH (21:13)
[2022-08-28] MEDS: AMIODARONE HCL 200 MG TAB PO SCH (22:24)
[2022-08-28] MEDS: HYDROCODONE/APAP 7.5/325 MG TAB PO PRN (22:24)
[2022-08-28] MEDS: GABAPENTIN 300 MG CAP PO SCH (22:24)
[2022-08-28] MEDS: METOPROLOL TAR 25 MG TAB PO SCH (22:25)
[2022-08-28] MEDS: ATORVASTATIN 10 MG TAB PO SCH (22:25)
[2022-08-29] MEDS: IPRATROPIUM BROM 0.5MG/2.5ML NEB SCH ×4 (02:10→20:00)
[2022-08-29] MEDS: ALBUTEROL 2.5 MG/3 ML NEB SOL NEB SCH ×4 (02:10→20:00)
[2022-08-29] MEDS: HYDROCODONE/APAP 7.5/325 MG TAB PO PRN ×4 (03:55→22:47)
[2022-08-29 06:33] LABS: Potassium 3.3 mEq/L (3.5-5.1)
[2022-08-29 06:37] LABS: Absolute Lymphocytes (CBC) 1.6 K/uL (0.7-4.9); Hematocrit 32.2 % (39.6-49.0); Lymphocytes % 13.2 % (15.3-44.8); MCV 73.2 fL (80-100); MPV 8.1 fL (7.6-11.3); RBC Red Blood Cell Count 4.39 M/uL (4.33-5.43)
[2022-08-29] MEDS: INSULIN -REGULAR HUMAN 50 UNIT/0.5 ML ML SQ SCH ×4 (07:30→20:26)
[2022-08-29] MEDS ORDERED: POTASSIUM CL SA 10 MEQ TAB PO ONE ×2 (07:50→08:09)
[2022-08-29] MEDS ORDERED: ASPIRIN 81 MG CHEWABLE TABLET PO SCH (09:00)
[2022-08-29] MEDS: AMIODARONE HCL 200 MG TAB PO SCH ×2 (09:16→20:25)
[2022-08-29] MEDS: METOPROLOL TAR 25 MG TAB PO SCH ×2 (09:17→20:25)
[2022-08-29] MEDS: APIXABAN 5 MG TABLET PO SCH ×2 (09:18→20:25)
[2022-08-29] MEDS: POTASSIUM CL SA 10 MEQ TAB PO SCH (09:18)
[2022-08-29] MEDS: FUROSEMIDE 40 MG/4 ML VIAL IV SCH ×2 (09:20→16:38)
[2022-08-29 10:08] LABS: Platelet Estimate INCR; White Blood Cell Scan OK (OK)
[2022-08-29 10:09] LABS: Anisocytosis 1+; Blood Morphology Comment NOTED (NOT SEEN); Hypochromasia 1+; Platelets, Giant PRESENT
--- NOTE | 2022-08-29 13:00 | EKG ---
Test Date: 2022-08-28 Test Time: 15:52:06 Excel Expert: MB MEASUREMENT RESULTS: Intervals: Rate: 72 LA: QRSD: 164 QT: 458 QTc: 501 [place]: P: LA: QRS: 20 T: 101 INTERPRETIVE STATEMENTS: Atrial fibrillation with a competing junctional pacemaker Right bundle branch block Abnormal ECG Compared to ECG 07/01/2022 08:30:06 Sinus rhythm no longer present Left-axis deviation no longer present Electronically Signed On 08-29-22 12:58:11 CDT by Mani Blue
--- NOTE | 2022-08-29 15:46 | P.PN ---
Subjective Date of Service: 08/29/22 Chief Complaint: BLE edema Patient denies any complaint except swollen legs. He denies shortness of breath. Physical Examination - Vital Signs Temperature: 96.8 F Blood Pressure: 120/56 Pulse: 84 Respirations: 19 Pulse Ox (%): 96 - Studies Laboratory Data (last 24 hrs) 08/28/22 14:56: Phosphorus 2.5, Magnesium 2.1 Assessment And Plan - Plan Physical Exam General: Alert, In no apparent distress, Oriented x3, obese. HEENT: Mucous membr. Sclerae nonicteric. Neck: Supple, no elevated JVD Respiratory: Diminished bilateral Cardiovascular: No murmurs, 3+ bilateral lower extremity pitting edema, Irregular heart rate/rhythm Gastrointestinal: Normal bowel sounds, Soft and benign, Non-distended, No tenderness Musculoskeletal: No clubbing, No tenderness. Integumentary: No rashes, No breakdown. Neurological: Normal speech, no focal motor deficit. Acute on chronic diastolic CHF Continue IV lasix. Keep lower extremity elevated/ Monitor intake and output Chronic atrial fibrillation Rate controlled. Continue amiodarone, metoprolol and Eliquis Lung Cancer/renal mass Outpatient work-up. Patient states he has follow-up at [facility] next month. COPD Stable Continue bronchodilators. Patient is stable on room air. Chronic back pain. We will manage pain with current home pain regimen CKD stage III Stable. Nephrology consulted. Hypertension Stable. Continue metoprolol DVT prophylaxis: Eliquis. Disposition: Home upon discharge.
[2022-08-29 16:20] LABS: Potassium 4.1 mEq/L (3.5-5.1)
--- NOTE | 2022-08-29 18:08 | CON ---
Date of Consultation: 08/29/2022 Reason For Consultation: Congestive heart failure exacerbation. History Of Present Illness: A 77-year-old male with history of diastolic heart failure, hypertension , dyslipidemia, atrial fibrillation, COPD, lung cancer, presented to the emergency room with worsenin g shortness of breath, lower extremity edema and orthopnea that has been going on for a month. Tried to adjust medications as an outpatient, but did not work, so he was directed to the hospital. Past Medical History: As outlined above in the HPI. Medications: Refer to reconciliation sheet for detailed list. Allergies: NO KNOWN DRUG ALLERGIES. Family History: No premature coronary artery disease or cancer. Social History: He does not smoke or drink. Does not use drugs. Review of Systems: All systems reviewed and they were negative except what mentioned in HPI. Physical Examination: Vital Signs: Reviewed. Head and Neck: Pupils are equal, reactive to light. Intact eye movements. Mild JVD elevation. Nec k is supple. Thyroid is not enlarged. Lungs: Clear to auscultation bilaterally. No rhonchi, wheezing, or crackles. No accessory muscle u se. Heart: Irregularly irregular. No extra sounds. Abdomen: Soft, nontender. Bowel sounds positive. No organomegaly. No masses or hernia. No rigidi ty or rebound. Extremities: 3 to 4+ pedal edema. No clubbing or cyanosis. Intact pulses. Skin: No rash. Neurologic: Alert, awake. No acute focal deficits appreciated. Investigations: BUN is 42, creatinine is 2.01 and his potassium is 4.1, hemoglobin is 9.8. Assessment And Recommendations: 1.Acute on chronic diastolic heart failure exacerbation. Agree with IV diuresis; however, increase the Lasix to 80 mg IV q.12 hours. Monitor BUN, creatinine, electrolytes, and if he does not diurese well on that, then we might consider adding metolazone. 2.Atrial fibrillation, rate is controlled. Continue amiodarone, metoprolol, and Eliquis. 3.Hypertension. Blood pressure is controlled. SR/MODL Voice ID: [id number] Report ID: [id number]
[2022-08-29] MEDS: ATORVASTATIN 10 MG TAB PO SCH (20:25)
[2022-08-29] MEDS: GABAPENTIN 300 MG CAP PO SCH (20:25)
[2022-08-29 21:31] VITALS: O2SAT 95
[2022-08-30] MEDS: IPRATROPIUM BROM 0.5MG/2.5ML NEB SCH ×4 (02:00→20:00)
[2022-08-30] MEDS: ALBUTEROL 2.5 MG/3 ML NEB SOL NEB SCH ×4 (02:00→20:00)
[2022-08-30] MEDS: HYDROCODONE/APAP 7.5/325 MG TAB PO PRN ×3 (04:49→18:12)
[2022-08-30] MEDS: INSULIN -REGULAR HUMAN 50 UNIT/0.5 ML ML SQ SCH ×4 (07:30→21:00)
[2022-08-30] MEDS: FUROSEMIDE 40 MG/4 ML VIAL IV SCH ×2 (08:58→16:40)
[2022-08-30] MEDS: APIXABAN 5 MG TABLET PO SCH ×2 (09:01→21:18)
[2022-08-30] MEDS: METOPROLOL TAR 25 MG TAB PO SCH ×2 (09:01→21:18)
[2022-08-30] MEDS: POTASSIUM CL SA 10 MEQ TAB PO SCH (09:02)
[2022-08-30] MEDS: AMIODARONE HCL 200 MG TAB PO SCH ×2 (09:02→21:18)
[2022-08-30] MEDS: ANORO ELLIPTA 62.5 MCG/25 MCG IH SCH (09:05)
[2022-08-30 13:32] LABS: Magnesium 2.3 mg/dL (1.6-2.4)
--- NOTE | 2022-08-30 15:52 | P.CNS ---
Date of Consult: 08/30/22 Reason for Consult: Renal insufficiency Requesting Physician: Lanny Ruiz Chief Complaint: BLE edema History of Present Illness: Patient is a 77-year-old male with a past medical history significant for chronic hypertension, hyperlipidemia, chronic back pain more recent discovery of ADPKD after he was referred to me in Dec by his PCP for mild renal insufficiency and with imaging subsequently revealing a large left renal mass metastatic to the lung s/p recent biopsy and now awaiting consultation at [facility]. Pt also was in the hospital 1 mo or so ago with Afib, has been diagnosed with some diastolic CHF and has developed increased B/l LE edema and LUCAS which persisted despite OP diuretic initiation and therefore presented to the hospital earlier this week. He reports feeling better currently with IV diuresis. Allergies No Known Allergies Allergy (Unverified 06/28/22 11:50) Home Medications: Apixaban [Eliquis] 5 mg PO BID 06/28/22 Finasteride 5 mg PO DAILY 06/28/22 Gabapentin 300 mg PO BEDTIME 06/28/22 Metformin ER [Glucophage ER*] 500 mg PO BEDTIME 06/28/22 Pravastatin [Pravachol*] 80 mg PO BEDTIME 06/28/22 Amiodarone HCl [Cordarone*] 200 mg PO BID #60 tab 07/01/22 Hydrocodone Bit/Acetaminophen [Hydrocodon-Acetaminoph 7.5-325] 1 each PO Q6HP PRN 08/28/22 Magnesium Oxide [Magnesium] 400 mg PO DAILY 08/28/22 Metoprolol Tartrate [Lopressor*] 50 mg PO BID 08/28/22 Potassium Chloride 20 meq PO DAILY 08/28/22 Spironolactone 12.5 mg PO DAILY 08/28/22 Torsemide [Demadex] 20 mg PO BIDP PRN 08/28/22 Albuterol Sulfate [Albuterol Sulfate Hfa] 8.5 gm IH DAILY 08/29/22 Umeclidinium Brm/Vilanterol Tr [Anoro Ellipta 62.5-25 Mcg INH] 1 each IH DAILY 08/29/22 - Past Medical/Surgical History Diabetic: No -: COPD -: HTN -: HLD -: AFib -: CKD III with proteinuria followed by Dr. Bass -: CLBP -: Left Lung Mass 06-28-22 -: bilateral heel sx -: left knee replacement - Social History Alcohol use: No CD- Drugs: Yes Caffeine use: Yes Place of Residence: Home Review of Systems General: Weakness Eyes: Unremarkable ENT: Unremarkable Respiratory: Shortness of Breath, As per HPI Cardiovascular: Edema Gastrointestinal: Unremarkable Musculoskeletal: Back Pain Neurological: Unremarkable Physical Examination Temp Pulse Resp BP Pulse Ox 96.8 F 80 18 123/65 100 08/30/22 12:00 08/30/22 12:00 08/30/22 12:00 08/30/22 12:00 08/30/22 12:00 General: In no apparent distress, Oriented x3 HEENT: Atraumatic, Normocephalic Neck: Supple Respiratory: Normal air movement, Other (No sig rhonchi or rales) Cardiovascular: Other (Non tachy, no cardiac gallop heart sounds appreciated) Gastrointestinal: Other (Soft, obese, NT) Musculoskeletal: No erythema, No tenderness, No warmth Integumentary: Other (Peripheral edema below knee b/l, 2+) Neurological: Normal speech, Normal tone, Normal affect Conclusions/Impression: A/P) 1. Serum Cr raised, CKD III unspecified 2nd to ADPKD with recent imaging revealing enlarged multicystic kidneys. Cr level has upward trended in recent months which is likely multifactorial. Will monitor closely with diuretic e scalation, prev taken off ACEi for low BP/other reasons. 2. Neoplasm of left kidney, metastatic. Awaiting evaluation at [facility] to review treatment options. 3. Volume overload unspecified. Acute on chronic diastolic CHF, elevated BNP level but without overt pulm edema reported on chest imaging. Peripheral edema (multifactorial). Current diuretic dose is double what pt was taking at home in the form of Torsemide most recently, will cont IV diuresis for another 12-24h and then switch to Torsemide 40 mg BID on discharge. Will add Spironolactone 25 mg qd. 4. BP range has been acceptable, cont to monitor closely Blaze Bass MD, PATRIC
--- NOTE | 2022-08-30 15:53 | P.PN ---
Subjective Date of Service: 08/30/22 Chief Complaint: BLE edema Patient bilateral lower extremity swelling improved from yesterday. He denies shortness of breath. Physical Examination - Vital Signs Temperature: 96.8 F Blood Pressure: 123/65 Pulse: 80 Respirations: 18 Pulse Ox (%): 100 Assessment And Plan - Plan Physical Exam General: Alert, In no apparent distress, Oriented x3. Neck: Supple, no elevated JVD Respiratory: Diminished bilateral Cardiovascular: No murmurs, 3+ bilateral lower extremity pitting edema, Irregular heart rate/rhythm Gastrointestinal: Normal bowel sounds, Soft and benign, Non-distended, No tenderness Musculoskeletal: No clubbing, No tenderness. Integumentary: No rashes, No breakdown. Neurological: Normal speech, no focal motor deficit. Acute on chronic diastolic CHF Leg edema is improving Continue IV lasix. May need to switch to Diamox given possible metabolic alkalosis. Keep lower extremity elevated/ Monitor intake and output Chronic atrial fibrillation Rate controlled. Continue amiodarone, metoprolol and Eliquis Lung Cancer/renal mass Outpatient work-up. Patient states he has follow-up at [facility] next month. COPD Stable Continue bronchodilators. Patient is stable on room air. Chronic back pain. We will manage pain with current home pain regimen CKD stage III Creatinine is trending upward diuresis Nephrology to see patient and adjust diuretics. Monitor renal function. Hypertension Stable. Continue metoprolol DVT prophylaxis: Eliquis. Disposition: Home upon discharge.
[2022-08-30] MEDS: SPIRONOLACTONE 25 MG TABLET PO SCH (16:38)
--- NOTE | 2022-08-30 17:41 | PN ---
Date of Progress Note: 08/30/2022 Subjective: Seen by bedside. He is improving gradually. Review of Systems: Positive for shortness of breath and orthopnea and lower extremity edema. No chest pain. No nausea, vomiting, diarrhea. All other systems reviewed and they were negative. Physical Examination: Vital Signs: Reviewed. Head and Neck: Pupils are equal, reactive to light. Intact eye movements. No JVD. No cervical lym phadenopathy. Neck is supple. Thyroid is not enlarged. Lungs: Clear to auscultation bilaterally. No rhonchi, wheezing, or crackles. No accessory muscle u se. Heart: Irregular. No extra sounds. Abdomen: Soft, nontender. Bowel sounds positive. No organomegaly. No masses or hernia. No rigidi ty or rebound. Extremities: No clubbing or cyanosis. 3+ pedal edema, improved from yesterday. Neurologic: Alert, awake, oriented x3. No acute focal deficits appreciated. Investigations: Labs were reviewed. Assessment And Recommendations: 1.Acute on chronic diastolic heart failure exacerbation, improving. Continue IV diuresis. The naomi ent has chronic kidney disease as well and Nephrology is on board. Carefully monitor BUN, creatinine , and electrolytes. 2.Atrial fibrillation. Rate is controlled on Eliquis. Continue current management. 3.Hypertension. Blood pressure is controlled. SR/MODL Voice ID: [id number] Report ID: [id number]
[2022-08-30] MEDS: ATORVASTATIN 10 MG TAB PO SCH (21:17)
[2022-08-30] MEDS: GABAPENTIN 300 MG CAP PO SCH (21:18)
[2022-08-31] MEDS: HYDROCODONE/APAP 7.5/325 MG TAB PO PRN ×3 (00:01→12:24)
[2022-08-31] MEDS: IPRATROPIUM BROM 0.5MG/2.5ML NEB SCH ×2 (01:36→08:00)
[2022-08-31] MEDS: ALBUTEROL 2.5 MG/3 ML NEB SOL NEB SCH ×2 (01:36→08:00)
[2022-08-31] MEDS: INSULIN -REGULAR HUMAN 50 UNIT/0.5 ML ML SQ SCH ×2 (07:30→11:30)
[2022-08-31] MEDS: APIXABAN 5 MG TABLET PO SCH (08:49)
[2022-08-31] MEDS: AMIODARONE HCL 200 MG TAB PO SCH (08:49)
[2022-08-31] MEDS: SPIRONOLACTONE 25 MG TABLET PO SCH (08:49)
[2022-08-31] MEDS: FUROSEMIDE 40 MG/4 ML VIAL IV SCH (08:50)
[2022-08-31] MEDS: ANORO ELLIPTA 62.5 MCG/25 MCG IH SCH (08:54)
[2022-08-31] MEDS: METOPROLOL TAR 25 MG TAB PO SCH (09:31)
[2022-08-31 12:05] LABS: Potassium 3.7 mEq/L (3.5-5.1)
--- NOTE | 2022-08-31 12:11 | P.DS ---
Admission Date: 08/28/22 Discharge Date: 08/31/22 Reason for Admission: BLE edema - Problems (1) Acute on chronic diastolic heart failure Current Visit: Yes Status: Acute (2) Chronic kidney disease, stage III (moderate) Current Visit: Yes Status: Acute (3) Chronic atrial fibrillation Current Visit: Yes Status: Acute (4) Essential hypertension Current Visit: Yes Status: Acute Brief History of Present Illness: Patient is a 77-year-old male with a past medical history significant for hypertension, hyperlipidemia, atrial fibrillation, chronic back pain COPD, BPH, peripheral neuropathy, Lung Cancer, Left Renal Mass who presented with complaint of BLE edema that has been ongoing for the past 3 months. Patient reported that he was placed on a diuretic 1 month ago and has been complaint with it. Patient was recently diagnosed with Lung Cancer per spouse report and has a follow up appointment with [facility]. Patient also reported left flank pain which patient attributes to a left renal Mass\Tumor which he was told by his doctors that mass could be cancerous. Patient reported associated signs and symptoms of shortness of breath with exertion, fatigue and weakness. He followed up with his experimental technician and was referred to the ER for IV diuresis. Patient hospitalized for further management. Hospital Course: Patient admitted to the medical floor and the following medical problems addressed: Acute on chronic diastolic CHF Treated with IV lasix. Bilateral leg edema improved significantly with treatment. She has some degree of metabolic acidosis which was stable with diuresis Seen by nephrology who assisted with management. He is discharged with torsemide 40 mg twice daily per nephrology recommendation. Chronic atrial fibrillation Rate controlled. Continued amiodarone, metoprolol and Eliquis Lung Cancer/renal mass Outpatient work-up. Patient states he has follow-up at [facility] next month. COPD Stable Continued bronchodilators. Patient was stable on room air. Chronic back pain. Pain management done CKD stage III Creatinine is trending upward with diuresis Nephrology assisted with management. Patient needs to follow-up with nephrology as outpatient for repeat renal panel on diuretics. Hypertension Stable. Continued metoprolol. Overall patient clinical condition has improved and deemed stable for discharge. Vital Signs/Physical Exam: Temp Pulse Resp BP Pulse Ox 97.3 F 87 16 122/64 95 08/31/22 08:00 08/31/22 09:31 08/31/22 08:00 08/31/22 09:31 08/31/22 08:00 General: Alert, In no apparent distress, Oriented x3 HEENT: Mucous membr. moist/pink Neck: JVD not distended Respiratory: Clear to auscultation bilaterally, Normal air movement Cardiovascular: Normal S1 S2, Edema (Bilateral lower extremity), Irregular heart rate/rhythm Gastrointestinal: Soft and benign, Non-distended Musculoskeletal: No erythema Integumentary: No cyanosis Neurological: Normal strength at 5/5 x4 extr Laboratory Data at Discharge: WBC 12.30 thou/uL (4.3-10.9) H 08/29/22 05:31 Hgb 9.8 g/dL (13.6-17.9) L D 08/29/22 05:31 Hct 32.2 % (39.6-49.0) L 08/29/22 05:31 Plt Count 468 thou/uL (152-406) H 08/29/22 05:31 PT 24.2 SECONDS (9.5-12.5) H 08/28/22 14:56 INR 2.20 08/28/22 14:56 Sodium 136 mEq/L (136-145) 08/30/22 12:59 Potassium 4.0 mEq/L (3.5-5.1) 08/30/22 12:59 BUN 43 mg/dL (7-18) H 08/30/22 12:59 Creatinine 2.16 mg/dL (0.70-1.30) H 08/30/22 12:59 Glucose 111 mg/dL (74-106) H 08/30/22 12:59 Phosphorus 2.5 mg/dL (2.5-4.9) 08/28/22 14:56 Magnesium 2.3 mg/dL (1.6-2.4) 08/30/22 12:59 Home Medications: Apixaban [Eliquis] 5 mg PO BID 06/28/22 Finasteride 5 mg PO DAILY 06/28/22 Gabapentin 300 mg PO BEDTIME 06/28/22 Pravastatin [Pravachol*] 80 mg PO BEDTIME 06/28/22 Amiodarone HCl [Cordarone*] 200 mg PO BID #60 tab 07/01/22 Hydrocodone Bit/Acetaminophen [Hydrocodon-Acetaminoph 7.5-325] 1 each PO Q6HP PRN 08/28/22 Magnesium Oxide [Magnesium] 400 mg PO DAILY 08/28/22 Metoprolol Tartrate [Lopressor*] 50 mg PO BID 08/28/22 Potassium Chloride 20 meq PO DAILY 08/28/22 Albuterol Sulfate [Albuterol Sulfate Hfa] 8.5 gm IH DAILY 08/29/22 Umeclidinium Brm/Vilanterol Tr [Anoro Ellipta 62.5-25 Mcg INH] 1 each IH DAILY 08/29/22 Sitagliptin Phosphate [Januvia] 50 mg PO DAILY #30 tab 08/31/22 Spironolactone [Aldactone*] 25 mg PO DAILY #30 tab 08/31/22 Torsemide [Soaanz] 40 mg PO BID #60 tab 08/31/22 New Medications: Spironolactone [Aldactone*] 25 mg PO DAILY #30 tab Sitagliptin Phosphate [Januvia] 50 mg PO DAILY #30 tab Torsemide [Soaanz] 40 mg PO BID #60 tab Diet: ADA Activity: Ad altaf Followup: Joseluis Mcpherson DO [ACTIVE - CAN ADMIT] - 1-2 Weeks Fredo Gonzalez DO [Primary Care Provider] - Time spent managing pt's care (in minutes): 36
[2022-08-31 12:18] VITALS: BP 109/65; TEMP 97.1
--- NOTE | 2022-08-31 12:58 | PN ---
Date of Progress Note: 08/31/2022 Subjective: Seen by bedside. Doing clinically well, ready to go home. Review of Systems: No chest pain, shortness of breath, orthopnea, cough. No nausea, vomiting, diarrhea. All other syst ems reviewed and they were negative. Physical Examination: Vital Signs: Reviewed. Head and Neck: Pupils are equal, reactive to light. Intact eye movements. No JVD. No cervical lym phadenopathy. Neck is supple. Thyroid is not enlarged. Lungs: Clear to auscultation bilaterally. No rhonchi, wheezing, or crackles. No accessory muscle u se. Heart: Irregularly irregular. No extra sounds. Abdomen: Soft, nontender. Bowel sounds positive. No organomegaly. No masses or hernia. No rigidi ty or rebound. Extremities: 2+ pedal edema. No clubbing or cyanosis. Intact pulses. Skin: No rash. Neurologic: Alert, awake, oriented x3. No acute focal deficits appreciated. Investigations: Labs are still pending. Assessment And Recommendations: 1.Acute on chronic diastolic heart failure. Await on blood work today. If his creatinine is still okay, I keep him on one more day with IV diuresis. 2.Acute on chronic renal failure due to congestive heart failure exacerbation, improving with diures is. 3.Atrial fibrillation. Rate is controlled. Continue amiodarone, beta-halley, and Eliquis. SR/MODL Voice ID: [id number] Report ID: [id number]
--- NOTE | 2022-08-31 20:08 | P.PN ---
Date of Service: 08/31/22 Vital Signs Temp Pulse Resp BP Pulse Ox 97.1 F 88 16 109/65 94 08/31/22 12:00 08/31/22 12:00 08/31/22 12:00 08/31/22 12:00 08/31/22 12:00 Assessment/ Plan: Nephrology No dyspnea No chest pain Feedling better No acute events overnight Vitals, medications, blood work and imaging reviewed in the chart. NAD. NCAT. MMM. Neck supple. Normal respiratory effort/ CTA. RRR. Abd ND. No C/C. LE Edema 1-2+. No rash. AAO. Normal speech. CKD IIIb -No NSAIDs Hyponatremia -Continue furosemide Alkalosis -Continue spironolactone HTN with CKD/ CHF -Continue Metoprolol -Hydralazine prn Diastolic CHF, A/C -Continue diuresis Hypercalcemia -Repeat level Anemia in chronic illness Microcytosis -Monitor H&H -Check iron levels
== END 2022-08-31 14:05 | disposition home or self-care (01) | DRG 291 ==
LOC: ER 13:36 → ERHOLD 17:27 → 4TH 19:46
PROVIDERS: ADMIT Hospitalist; ATTEND Internal Medicine
DX: I13.0 Hypertensive heart and chronic kidney disease with heart failure and stage 1 through stage 4 chronic kidney disease, or unspecified chronic kidney disease (principal); I50.33 Acute on chronic diastolic (congestive) heart failure; J44.1 Chronic obstructive pulmonary disease with (acute) exacerbation; N17.9 Acute kidney failure, unspecified; I48.20 Chronic atrial fibrillation, unspecified; C79.02 Secondary malignant neoplasm of left kidney and renal pelvis; E87.1 Hypo-osmolality and hyponatremia; E87.3 Alkalosis; N18.32 Chronic kidney disease, stage 3b; D63.1 Anemia in chronic kidney disease; G89.29 Other chronic pain; M54.9 Dorsalgia, unspecified; E83.52 Hypercalcemia; E78.5 Hyperlipidemia, unspecified; G62.9 Polyneuropathy, unspecified; E66.09 Other obesity due to excess calories; Z68.37 Body mass index [BMI] 37.0-37.9, adult; Z79.01 Long term (current) use of anticoagulants; Z79.84 Long term (current) use of oral hypoglycemic drugs; Z79.899 Other long term (current) drug therapy; Z96.652 Presence of left artificial knee joint; Z85.118 Personal history of other malignant neoplasm of bronchus and lung; Z87.891 Personal history of nicotine dependence; Z20.822 Contact with and (suspected) exposure to COVID-19
CPT/HCPCS: 36415; 71045; 80048; 82947; 83735; 83880; 84100; 84484; 85025; 85610; 87811; 93005; 96374; 99285; J1650; J1940; J7613; J7644